=== PATIENT | male | born 1990 | race Caucasian/White ===

== ENCOUNTER → 2019-12-09 14:34 | Outpatient (BNVA) | payer OTHER, SELFPAY | PROVIDERS: Family Provider Speech-Language Pathologist; Referring Provider Family Medicine; Visit Provider Orthopaedic Surgery | DX: M25.561 Pain in right knee (principal) | CPT/HCPCS: 73560; 73565 ==

== ENCOUNTER 2020-11-09 17:30 | Emergency (ER) | payer OTHER, SELFPAY ==
[2020-11-09 17:35] VITALS: BP 128/83; PULSE 74; RESP 18; TEMP 36.7; O2SAT 99
--- NOTE | 2020-11-09 18:12 | CTR_ITS ---
PROCEDURE INFORMATION: Exam: CT Head Without Contrast Exam date and time: 11/09/2020 6:44 PM Age: 30 years old Clinical indication: Dizziness and syncope and collapse TECHNIQUE: Imaging protocol: Computed tomography of the head without contrast. Radiation optimization: All CT scans at this facility use at least one of these dose optimization techniques: automated exposure control; mA and/or kV adjustment per patient size (includes targeted exams where dose is matched to clinical indication); or iterative reconstruction. COMPARISON: No relevant prior studies available. RADIATION DOSE METRICS: Total DLP (mGy-cm): 810.55 FINDINGS: Brain: Normal. No hemorrhage or CT evidence of acute infarction is seen. No mass effect. Cerebral ventricles: No ventriculomegaly. Bones/joints: Unremarkable. No acute fracture. Paranasal sinuses: Visualized sinuses are unremarkable. No fluid levels. Mastoid air cells: Visualized mastoid air cells are well aerated. Soft tissues: Unremarkable. CT/CT head wo con* [id number] IMPRESSION: No acute intracranial abnormality. Radiation Dose CTDIVOL = (mGy): DLP = 810.55 (mGy-cm)
--- NOTE | 2020-11-09 18:12 | ECG_ITS ---
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 Measurements Intervals [place] Rate: 79 P: 71 [place]: 196 QRS: 85 QRSD: 90 T: 56 QT: 348 QTc: 400 Interpretive Statements SINUS RHYTHM WITH SINUS ARRHYTHMIA Compared to ECG 07/10/2018 23:03:52 No significant changes Electronically Signed On 11-09-2020 21:39:42 CASE MANAGEMENT ASSOCIATE by Jamil Ku M.D. [id number]
--- NOTE | 2020-11-09 18:20 | ED_ITS ---
HPI - Syncope General: Chief Complaint: Syncope Stated Complaint: PASSING OUT ON AND OFF Time Seen by Provider: 11/09/20 18:14 Source: patient Mode of arrival: ambulatory Limitations: no limitations History of Present Illness: HPI narrative: 30-year-old male with a history of diabetes. He states that over the last 1 to 2 weeks he has had episodes of feeling lightheaded and passed out. States that he felt lightheaded today after work. He states morning when he woke up to he just felt out of it and did have a syncopal event. He denies any headache or chest pain. Denies any vomiting or diarrhea. Denies any worsening or improving factors. MD complaint: loss of consciousness Associated symptoms: Deny abdominal pain, fever(s), headache(s) or nausea Review of Systems Const: Denies: fever(s), chills, body aches or change in appetite Eyes: Denies: blurry vision or eye discomfort ENMT: Denies: throat pain or dental pain Card: Reports: syncope Resp: Denies: dyspnea GI: Denies: abdominal pain, nausea, vomiting or diarrhea : Denies: dysuria Musc: Denies: neck pain or back pain Skin/Breast: Denies: rash Neuro: Denies: headache(s) Psych: Denies: depression Daniel/Lymph: Denies: easy bruising All/Imm: Denies: urticaria PFSH ED PFSH: Family History Father Heart attack x2 Social History Smoking and tobacco status: former smoker Alcohol intake: never Physical Exam Const: COMMON NORMALS: no acute distress, patient oriented x3 and healthy appearing HENMT: COMMON NORMALS: normocephalic and atraumatic HEAD & SCALP: normocephalic and atraumatic Eye: COMMON NORMALS: Equal, round and reactive pupils present and EOMs intact bilaterally PUPIL: Yes Equal, round and reactive pupils present Neck/C-Spine: COMMON NORMALS: full ROM and supple Chest: COMMONS NORMALS: normal inspection of the chest and normal palpation of entire chest wall Resp: COMMON NORMALS: normal respiratory effort, No retractions, No use of accessory muscles and clear to auscultation bilaterally AUSCULTATION: clear to auscultation bilaterally Cardio: COMMON NORMALS: regular rate, regular rhythm and No murmurs present (Cardio) RATE: regular rate RHYTHM: regular rhythm GI: COMMON NORMALS: Normal to inspection, nondistended, normoactive bowel sounds present, Soft to palpation, non-tender and no masses PALPATION: Yes Soft to palpation Extremity: COMMON NORMALS: normal to inspection and full ROM Neuro: COMMON NORMALS: patient oriented x3, moves all extremities and no focal motor deficits Psych: COMMON NORMALS: mental status grossly normal, Normal thought process present and cooperative THOUGHT PROCESS: Normal thought process present Skin: COMMON NORMALS: no rashes or lesions noted and no wounds GENERAL SKIN EXAM: no rashes or lesions noted Course Vital Signs: Vital signs: Vital Signs Temperature 98.1 F 11/09/20 17:35 Pulse Rate 74 11/09/20 17:35 Respiratory Rate 18 11/09/20 17:35 Blood Pressure 128/83 11/09/20 17:35 Pulse Oximetry 96 11/09/20 18:42 MDM - Syncope MDM Narrative: Medical decision making narrative: Patient presents here with syncope has been going on for weeks. His blood count electrolytes all EKG are all normal here. His head CT is normal as well. He has no signs of cardiac cause or pulmonary embolism. He is well-appearing here and his vital signs are normal. He is stable for discharge and is to follow-up with his PCP in 2 weeks to schedule and return if worsening. He understands agrees to plan. Lab Data: Labs: Lab Results 11/09/20 11/09/20 11/09/20 Range/Units 18:00 18:00 18:35 WBC 11.0 H (4.0-10.0) 10^3/ uL RBC 4.75 (4.1-5.3) 10^6/u L Hgb 14.9 (11.7-16.6) g/dL Hct 44.4 (42.0-52.0) % MCV 93.5 (80-94) fL MCH 31.4 (28.0-34.0) pg MCHC 33.6 (30.0-36.0) g/dL RDW 11.8 L (12.1-15.1) % Plt Count 237 (130-400) 10^3/c mm MPV 11.3 H (7.4-10.4) fL Neut % (Auto) 66.6 % Lymph % (Auto) 22.8 % [place] % (Auto) 8.0 % Eos % (Auto) 1.2 % Baso % (Auto) 1.1 % Neut # (Auto) 7.32 (1.8-7.7) 10^3/u L Lymph # (Auto) 2.5 (0.8-4.8) 10^3/u L [place] # (Auto) 0.9 (0.2-0.9) 10^3/u L Eos # (Auto) 0.1 (0.0-0.8) 10^3/u L Baso # (Auto) 0.1 (0.0-0.1) 10^3/u L Nucleated RBC % (a uto) 0 % Nucleated RBCs # 0.0 /100WBC Specimen Type Arterial ABG pH 7.41 (7.35-7.45) ABG pCO2 43.7 (35-45) mmHg ABG pO2 84.4 (80.0-100.0) mmH g ABG HCO3 27.7 H (22-26) mmol/L ABG O2 Saturation 97.7 ABG Base Excess 2.5 H (-2.0-2.0) mmol/ L Charles Test Pos A-a O2 Gradient 1.5 L (5-10) mmHg Hematocrit 47.3 (42-52) % Hgb O2 Saturation 96.8 (95-100) % Carboxyhemoglobin 0.6 (0.4-20.1) %THgb Methemoglobin 0.4 (0.4-1.5) % Total Hemoglobin 15.4 (14-18) g/dL Ionized Calcium 1.3 (1.1-1.4) mmol/L Collection Administrator ID Anonymous Sodium 138 140.0 (136-145) mmol/L Potassium 3.9 4.0 (3.5-5.1) mmol/L Chloride 99 (98-107) mmol/L Carbon Dioxide 28 (22-29) mmol/L Anion Gap 14.9 (5-19) BUN 19 (6-20) mg/dL Creatinine 0.8 (0.7-1.2) mg/dL GFR Calculation 112.0 (90-130) mL/min Glucose 99 94.0 (65-115) mg/dL Calculated Osmolal ity 288 (285-295) mOsm/k g Calcium 10.2 (8.5-10.5) mg/dL Total Bilirubin 0.7 (0.15-1.2) mg/dL AST 14 (0-40) U/L ALT 15 (0-41) U/L Alkaline Phosphata se 70 (40-130) IU/L Total Protein 7.5 (6.6-8.7) g/dL Albumin 4.6 (3.5-5.2) g/dL Globulin 2.9 (1.3-4.6) g/dL Imaging Data^: CT Chest: Attestation: I personally reviewed and interpreted this imaging study as follows: Radiologist's impression: [employer] [address] [address] [address] Scan Report Signed Patient: Rc Blair Unit #: [id number] : 1990 Acc t#:[id number] Age/Sex: 30 / M ADM Date: 11/09/20 Loc: ER Room/Bed: Attending Dr: Ordering Provider/Ordering MD: Desiree Kent MD Date of Service: 11/09/20 Procedure(s): CT head wo con* [id number] Accession Number(s): [id number] Report Number: [id number] PROCEDURE INFORMATION: Exam: CT Head Without Contrast Exam date and time: 11/09/2020 6:44 PM Age: 30 years old Clinical indication: Dizziness and syncope and collapse TECHNIQUE: Imaging protocol: Computed tomography of the head without contrast. Radiation optimization: All CT scans at this facility use at least one of these dose optimization techniques: automated exposure control; mA and/or kV adjustment per patient size (includes targeted exams where dose is matched to clinical indication); or iterative reconstruction. COMPARISON: No relevant prior studies available. RADIATION DOSE METRICS: Total DLP (mGy-cm): 810.55 FINDINGS: Brain: Normal. No hemorrhage or CT evidence of acute infarction is seen. No mass effect. Cerebral ventricles: No ventriculomegaly. Bones/joints: Unremarkable. No acute fracture. Paranasal sinuses: Visualized sinuses are unremarkable. No fluid levels. Mastoid air cells: Visualized mastoid air cells are well aerated. Soft tissues: Unremarkable. CT/CT head wo con* [id number] IMPRESSION: No acute intracranial abnormality. EKG Data^: EKG 1: Attestation: I personally reviewed and interpreted this EKG as follows: EKG interpretation date: 11/09/20 EKG interpretation time: 19:09 Interpretation: nsr hr [address] or T wave abnormalities QRS 90 QTC 383 Discharge Plan Discharge Patient Disposition: Home Clinical Impression: Syncope Qualifiers: Syncope type: unspecified Qualified Code(s): R55 - Syncope and collapse Condition: Stable Prescriptions: No Action metformin 500 mg tablet 500 mg PO BID RF: 0 pravastatin 10 mg tablet 10 mg PO BEDTIME RF: 0 glipizide 10 mg tablet 10 mg PO BID RF: 0 Tylenol Arthritis Pain 650 mg Tablet Extended Release 2,600 mg PO TID PRN (Reason: Pain) RF: 0 Discharge Orders: Discharge ED (Routine); Ordered 11/09/20 Ordered By: Desiree Kent Discharge Diet: Advance as tolerated Discharge Activity: Resume usual activity Patient Instructions: Syncope (ED) Coding Level of Care Code ED Security Nurse for Chg Fwd Exam Comprehensive
--- NOTE | 2020-11-09 18:36 | PC.PHAR ---
pt states he takes the medications entered-[facility] to [facility] list to verify
[2020-11-09 18:42] VITALS: O2SAT 96
[2020-11-09 18:49] LABS: ABG PCO2 43.7 mmHg (35-45); ABG PH Result 7.41 (7.35-7.45); Alveolar-Arterial Oxygen Gradi 1.5 mmHg (5-10); Arterial Blood Gas Hematocrit 47.3 % (42-52); Base Excess ABG 2.5 mmol/L (-2.0-2.0); Blood Gas Allen Test Pos; Blood Gas Sample Type Arterial; Carboxyhemoglobin 0.6 %THgb (0.4-20.1); HCO3 ABG 27.7 mmol/L (22-26); HGB O2 Sat 96.8 % (95-100); Ionized Calcium Level - ABG 1.3 mmol/L (1.1-1.4); Methemoglobin 0.4 % (0.4-1.5); Oxygen Saturation ABG 97.7; PO2 ABG 84.4 mmHg (80.0-100.0); Total Hemoglobin 15.4 g/dL (14-18)
[2020-11-09] MEDS: sodium chloride 0.9% 1,000 ML 999 ML IV (19:09)
[2020-11-09 19:17] LABS: Basophils # 0.1 10^3/uL (0.0-0.1); Basophils % 1.1 %; Eosinophils # 0.1 10^3/uL (0.0-0.8); Eosinophils % 1.2 %; Hematocrit 44.4 % (42.0-52.0); Hemoglobin 14.9 g/dL (11.7-16.6); Lymphocytes # 2.5 10^3/uL (0.8-4.8); Lymphocytes % 22.8 %; Mean Corpuscular HGB Conc 33.6 g/dL (30.0-36.0); Mean Corpuscular Hemoglobin 31.4 pg (28.0-34.0); Mean Corpuscular Volume 93.5 fL (80-94); Mean Platelet Volume 11.3 fL (7.4-10.4); Monocytes # 0.9 10^3/uL (0.2-0.9); Neutrophils # 7.32 10^3/uL (1.8-7.7); Neutrophils % 66.6 %; Nucleated Red Blood Cells % 0 %; Platelet Count 237 10^3/cmm (130-400); Red Blood Count 4.75 10^6/uL (4.1-5.3); Red Cell Distribution Width 11.8 % (12.1-15.1)
[2020-11-09 19:38] LABS: Alanine Aminotransferase 15 U/L (0-41); Albumin Level 4.6 g/dL (3.5-5.2); Alkaline Phosphatase 70 IU/L (40-130); Anion Gap 14.9 (5-19); Aspartate Amino Transferase 14 U/L (0-40); Blood Urea Nitrogen 19 mg/dL (6-20); Calcium 10.2 mg/dL (8.5-10.5); Carbon Dioxide 28 mmol/L (22-29); Chloride 99 mmol/L (98-107); Globulin 2.9 g/dL (1.3-4.6); Glucose 99 mg/dL (65-115); Osmolality Calculated 288 mOsm/kg (285-295); Potassium 3.9 mmol/L (3.5-5.1); Sodium 138 mmol/L (136-145); Total Bilirubin 0.7 mg/dL (0.15-1.2); Total Protein 7.5 g/dL (6.6-8.7)
[2020-11-09 20:21] VITALS: BP 134/87; PULSE 87; RESP 16; O2SAT 99
== END 2020-11-09 20:23 | disposition home or self-care (01) ==
PROVIDERS: Emergency Provider Emergency Medicine
DX: R55 Syncope and collapse (principal); Z79.84 Long term (current) use of oral hypoglycemic drugs; Z87.891 Personal history of nicotine dependence
CPT/HCPCS: 12345; 36600; 70450; 80051; 80053; 82330; 82805; 83605; 85025; 93005; 96360; 99283; J7030

== ENCOUNTER 2022-06-04 16:55 | Emergency (ER) | payer OTHER, BC, SELFPAY ==
[2022-06-04 16:59] VITALS: BP 128/76; PULSE 72; RESP 16; TEMP 36.2; O2SAT 97; BMI 213.9
--- NOTE | 2022-06-04 17:12 | XRR_ITS ---
PROCEDURE INFORMATION: Exam: XR Right Hand Exam date and time: 06/04/2022 5:17 PM Age: 31 years old Clinical indication: Injury or trauma; Other: Smashed by heavy object; Blunt trauma (contusions or hematomas); Finger; Right; Thumb TECHNIQUE: Imaging protocol: Radiologic exam of the Right hand. Views: 3 or more views. COMPARISON: No relevant prior studies available. FINDINGS: Bones/joints: No fracture is identified. Soft tissues: There is some irregularity of the soft tissues of the tip of the thumb consistent with soft tissue injury and laceration. XR/XR hand RT min 3V* [id number] IMPRESSION: Soft tissue injury. No fracture is identified
--- NOTE | 2022-06-04 17:17 | W.ED.WOUNDLC ---
HPI - Wound/Laceration General: Chief Complaint: Wound/Laceration Stated Complaint: Right thumb injury Time Seen by Provider: 06/04/22 17:12 History of Present Illness: 31-year-old male comes in today with injury to the right thumb. Injury occurred about 7:00 this morning while he was at work. Patient put some glue on it to get it to stop bleeding and has come in now for further evaluation and treatment. Normal tendon movement is noted. Patient reports his tetanus is up-to-date. Patient appears well. Patient appears in mild pain. Review of Systems General: Reports: 10 or more systems reviewed and unremarkable except in HPI and below Musc: Reports: extremity pain PFSH ED PFSH: Family History Father Heart attack x2 Social History Smoking and tobacco status: former smoker Alcohol intake: never Physical Exam Const: COMMON NORMALS: alert HENMT: COMMON NORMALS: normocephalic HEAD & SCALP: normocephalic Resp: COMMON NORMALS: normal respiratory effort Cardio: COMMON NORMALS: regular rate RATE: regular rate Extremity: RIGHT UPPER EXTREMITY: Yes hand & digits (Soft tissue avulsion distal right thumb, normal tendon function) Right hand and digits: Yes inspection, Yes palpation, Yes ROM exam, Yes neurovascular exam and Yes tendon exam Neuro: SENSORIUM/ORIENTATION: Yes alert Skin: TRAUMA: other (Soft tissue avulsion distal right thumb) Course Vital Signs: Vital signs: Vital Signs Temperature 97.1 F L 06/04/22 16:59 Pulse Rate 72 06/04/22 16:59 Respiratory Rate 16 06/04/22 16:59 Blood Pressure 128/76 06/04/22 16:59 Pulse Oximetry 97 06/04/22 16:59 Oxygen Delivery Me thod 06/04/22 16:59 MDM - Wound/Laceration Medical Decision Making Patient comes in for injury to the right thumb. On exam there is some soft tissue injury at the distal part of the right thumb with some exposed subcutaneous fat. Subcutaneous fat has been covered and adhesive. Patient has good range of motion of the thumb. And normal cap refill. Differential diagnosis includes but not limited to fracture, laceration/avulsion, need for prophylaxis tetanus. Patient's tetanus shot was up-to-date. X-ray noted no fracture of the bone. We will go ahead and cover patient with cephalexin 1 tablet twice a day for 7 days for prophylaxis therapy. Wound was cleaned and covered with gauze and antibiotic ointment. Patient was recommended to follow-up with primary care in 2 to 3 days for recheck. Patient was also recommended return to the ER for high fever, increased redness or swelling, streaking up the arm. Patient reported understanding of care plan and need for follow-up. Discharge Plan Discharge Patient Disposition: Home Clinical Impression: Crushed finger, distal Qualifiers: Encounter type: initial encounter Qualified Code(s): S67.10XA - Crushing injury of unspecified finger(s), initial encounter Condition: Stable Prescriptions: New cephalexin 500 mg capsule 500 mg PO BID 7 Days Qty: 14 0RF No Action metformin 500 mg tablet 500 mg PO BID pravastatin 10 mg tablet 10 mg PO BEDTIME glipizide 10 mg tablet 10 mg PO BID Tylenol Arthritis Pain 650 mg Tablet Extended Release 2,600 mg PO TID PRN (Reason: Pain) Discharge Orders: Discharge ED (Routine); Ordered 06/04/22 Ordered By: Go Archer Discharge Diet: Usual diet Discharge Activity: Increase activity as tolerated Patient Instructions: Wound Care (General) Activity Restrictions/Additional Instructions: Keep wound clean and dry as much as possible. Keep the wound protected during work with padded dressing and gloves. Take antibiotic as directed for the next 7 days. Follow-up with primary care in 3 to 5 days for recheck. Return to ER for new concerns such as fever greater than 100.4, increasing redness and swelling of the finger with streaking up the arm, or uncontrolled pain. Coding Level of Care Code ED Clay Press Operator for Alanna Fwd Exam Detailed
[2022-06-04] MEDS: bacitracin ointment Pkt 1 EACH TOPICAL (17:37)
[2022-06-04] MEDS: cephALEXin 500 mg Capsule PO (17:37)
== END 2022-06-04 17:44 | disposition home or self-care (01) ==
PROVIDERS: Emergency Provider Nurse Practitioner Family
DX: S67.01XA Crushing injury of right thumb, initial encounter (principal); Z79.84 Long term (current) use of oral hypoglycemic drugs; Z87.891 Personal history of nicotine dependence; X58.XXXA Exposure to other specified factors, initial encounter
CPT/HCPCS: 73130; 99283

== ENCOUNTER 2024-11-22 15:39 | Emergency (ER) | payer OTHER, SELFPAY ==
[2024-11-22 16:02] VITALS: BP 103/66; PULSE 126; RESP 22; TEMP 39; O2SAT 95; BMI 22.0
--- NOTE | 2024-11-22 16:26 | ED_ITS ---
HPI - URI/Sore Throat General: Chief Complaint: Upper Respiratory Infection Stated Complaint: congestion, high fever Time Seen by Provider: 11/22/24 16:11 Source: patient Mode of arrival: ambulatory Limitations: no limitations History of Present Illness: Patient is a 34-year-old male presents to ED today along with his significant other for evaluation of fevers, chills, body aches, cough, congestion, sore throat, headache. states the whole family had initially been sick with sinus like symptoms but they seemed to recover but states that patient then recently got sick again and it seemed to come out of nowhere. No vomiting/diarrhea. MD elicited complaint: fever, cough, sore throat, rhinorrhea and nasal congestion Onset (ago): day(s) Consistency: constant Severity: moderate Description of mucous: clear Able to tolerate fluids by mouth: Yes Exacerbating factors: nothing Relieving factors: nothing Context: sick contacts Associated symptoms: Reports chills, fever(s), headache(s) and nasal congestion; Deny abdominal pain, chest pain, diarrhea, ear or mastoid pain, sinus pain or vomiting Related Data Home Medications Medication Instructions Recorded Confirmed glipizide 10 mg tablet 10 mg PO BID 12/09/19 07/10/22 metformin 500 mg tablet 500 mg PO BID 12/09/19 07/10/22 Allergies Allergy/AdvReac Type Severity Reaction Status Date / Time No Known Allergies Allergy Verified 11/22/24 16:07 Review of Systems Const: Reports: fever(s), chills, body aches and fatigue Eyes: Denies: change in vision, blurry vision, photophobia, eye discharge, eye redness, floaters or seeing flashes ENMT: Reports: throat pain, odynophagia, nasal discharge and nasal congestion; Denies: ear or mastoid pain or sinus pain Card: Denies: chest pain Resp: Reports: non-productive cough and chest congestion; Denies: dyspnea, wheezing or hemoptysis GI: Denies: abdominal pain, vomiting or diarrhea Musc: Denies: neck pain, back pain, extremity pain, extremity swelling, joint pain or joint swelling Skin/Breast: Denies: rash Neuro: Reports: headache(s); Denies: numbness in extremities, weakness in extremities, sensory changes, difficulty walking, dizziness or confusion PFS ED PFSH: Medical History Type 2 diabetes mellitus Family History Father Heart attack x2 Social History Smoking and tobacco/nicotine status: former use of tobacco/nicotine Alcohol intake: never Substance/Drug Use: never Physical Exam Const: COMMON NORMALS: average body habitus, patient oriented x3, no limitations, healthy appearing, alert and well nourished GENERAL APPEARANCE: cooperative and ill appearing (mild; febrile at 102.2) ORIENTATION/CONSCIOUSNESS: Yes awake, Yes oriented to person, Yes oriented to place and Yes oriented to time HENMT: COMMON NORMALS: normocephalic, atraumatic, hearing grossly normal bilaterally, external ears normal, EAC's normal, TM's normal bilaterally, Normal external nose present, Normal nasal mucous membranes and turbinates present, moist oral mucous membranes and oropharynx normal HEAD & SCALP: normal to inspection, normocephalic and atraumatic FACE & SINUS: normal facial exam and sinuses nontender NOSE: Normal external nose present and Normal nasal mucous membranes and turbinates present EXTERNAL EAR: Yes external ears normal EXTERNAL AUDITORY CANAL: EAC's normal TYMPANIC MEMBRANE: TM's normal bilaterally MOUTH: Normal oral and palatal mucosa present and lip normal THROAT: posterior oropharynx normal, tonsils normal and uvula midline Eye: COMMON NORMALS: Equal, round and reactive pupils present, EOMs intact bilaterally and conjunctivae normal CONJUNCTIVA: Yes conjunctivae normal PUPIL: Yes Equal, round and reactive pupils present Neck/C-Spine: COMMON NORMALS: no lymphadenopathy Resp: COMMON NORMALS: normal respiratory effort and clear to auscultation bilaterally AUSCULTATION: clear to auscultation bilaterally Cardio: COMMON NORMALS: regular rhythm RATE: tachycardic (pt febrile at 102.2) RHYTHM: regular rhythm Extremity: GENERAL: Yes normal exam except as noted Neuro: GUNNER COMA SCALE: document GCS findings Gunner coma scale eye opening: Spontaneous [place] coma scale verbal response: Orientated Gunner coma scale motor response: [place] commands Gunner coma scale total score: 15 COMMON NORMALS: patient oriented x3 SENSORIUM/ORIENTATION: Yes alert, Yes oriented to person, Yes oriented to place and Yes oriented to time Skin: COMMON NORMALS: no rashes or lesions noted GENERAL SKIN EXAM: no rashes or lesions noted Course Vital Signs: Vital signs: Vital Signs Temperature 102.2 F H 11/22/24 16:02 Pulse Rate 119 H 11/22/24 16:28 Respiratory Rate 16 11/22/24 16:28 Blood Pressure 112/69 11/22/24 16:28 Pulse Oximetry 94 11/22/24 16:28 Oxygen Delivery Me thod Room Air 11/22/24 16:28 MDM - URI/Sore Throat Medical Decision Making Patient here with flu like symptoms. He is positive for influenza A. Discussed conservative therapies at home. CXR unremarkable. Differential Diagnosis Likely upper respiratory infection, viral infection, bronchitis, influenza and pharyngitis Medical Records I reviewed the patient's medical records. Lab Data I reviewed the patient's lab results. Laboratory Results Coronavirus (PCR) Negative (Negative) 11/22/24 16:10 Influenza A (PCR) Positive (Negative) 11/22/24 16:10 Influenza Type B (PCR) Negative (Negative) 11/22/24 16:10 RSV (PCR) Negative (Negative) 11/22/24 16:10 XR interpretation done by ED provider, pending radiology final review Discharge Plan Discharge Patient Disposition: Home Clinical Impression: Influenza A Condition: Stable Prescriptions: No Action metformin 500 mg tablet 500 mg PO BID glipizide 10 mg tablet 10 mg PO BID Discharge Orders: Discharge ED (Routine); Ordered 11/22/24 Ordered By: Naomi Kebede Patient Instructions: Influenza (DC) Coding Level of Care Code ED [place] Controller for Alanna Turk
[2024-11-22 16:28] VITALS: BP 112/69; PULSE 119; RESP 16; O2SAT 94
--- NOTE | 2024-11-22 16:32 | XRR_ITS ---
PROCEDURE INFORMATION: Exam: XR Chest Exam date and time: 11/22/2024 4:42 PM Age: 34 years old Clinical indication: Cough and fever; Patient HX: Cough; Congestion; Fever TECHNIQUE: Imaging protocol: Radiologic exam of the chest. Views: 1 view. COMPARISON: No relevant prior studies available. FINDINGS: Lungs: Unremarkable. No consolidation. Pleural spaces: Unremarkable. No pleural effusion. No pneumothorax. Heart/Mediastinum: Unremarkable. No cardiomegaly. Bones/joints: Unremarkable. XR/XR chest 1V portable [id number] IMPRESSION: No acute findings.
[2024-11-22] MEDS: ibuprofen 800 mg tablet PO (16:38)
[2024-11-22] MEDS: acetaminophen 500 mg Tablet 1000 MG PO (16:38)
[2024-11-22 16:57] LABS: Covid PCR NEGATIVE (Negative); Influenza A POSITIVE (Negative); Influenza B NEGATIVE (Negative); Respiratory Syncytial Virus Ce NEGATIVE (Negative)
[2024-11-22 17:33] VITALS: BP 108/61; PULSE 116; RESP 16; O2SAT 93
== END 2024-11-22 17:32 | disposition home or self-care (01) ==
PROVIDERS: Emergency Provider Physician Assistant
DX: J10.1 Influenza due to other identified influenza virus with other respiratory manifestations (principal); Z11.52 Encounter for screening for COVID-19; Z79.84 Long term (current) use of oral hypoglycemic drugs; E11.9 Type 2 diabetes mellitus without complications
CPT/HCPCS: 71045; 87637; 99284

== ENCOUNTER 2024-11-28 13:00 | Emergency (ER) | payer OTHER, SELFPAY ==
[2024-11-28 13:01] VITALS: BP 134/83; PULSE 80; RESP 16; TEMP 36.7; O2SAT 97; BMI 21.7
--- NOTE | 2024-11-28 13:02 | XR_ITS ---
WS: [id number] Exam: XR hand RT min 3V* [id number] Date/Time of Exam: 11/28/2024 1:03 PM Reason For Exam: injury No fracture. The joints are preserved. Normal soft tissues. XR/XR hand RT min 3V* [id number] IMPRESSION: 1. No acute fracture.
--- NOTE | 2024-11-28 13:35 | ED_ITS ---
HPI - Extremity Injury (Upper) General: Chief Complaint: Extremity Injury, Upper Stated Complaint: rt pinkie injury Time Seen by Provider: 11/28/24 13:15 Source: patient Mode of arrival: ambulatory Limitations: no limitations History of Present Illness: Patient is a 34-year-old male who presents to ED today for evaluation of right hand injury that he sustained just prior to arrival after accidentally dropped a 40 pound piece of subflooring onto the right hand. Sustained an abrasion and has noticed some swelling overlying the right fourth and fifth MCP joints. Maintains full range of motion. Tetanus UTD. MD complaint: injury to: right and hand Onset (ago): hour(s) Other injuries: none Handedness: right Place: home Severity: mild Relieving factors: none Exacerbating factors: none Context: direct blow Associated symptoms: Reports no associated symptoms Related Data Home Medications Medication Instructions Recorded Confirmed glipizide 10 mg tablet 10 mg PO BID 12/09/19 07/10/22 metformin 500 mg tablet 500 mg PO BID 12/09/19 07/10/22 Allergies Allergy/AdvReac Type Severity Reaction Status Date / Time No Known Allergies Allergy Verified 11/22/24 16:07 Review of Systems Musc: Reports: extremity pain Skin/Breast: Reports: other (abrasion) Neuro: Denies: numbness in extremities or sensory changes PFSH ED PFSH: Medical History Type 2 diabetes mellitus Family History Father Heart attack x2 Social History Smoking and tobacco/nicotine status: former use of tobacco/nicotine Alcohol intake: never Substance/Drug Use: never Physical Exam Const: COMMON NORMALS: no acute distress, average body habitus, no limitations, healthy appearing, alert and well nourished Extremity: COMMON NORMALS: full ROM and capillary refill normal GENERAL: Yes normal exam except as noted LEFT UPPER EXTREMITY: Yes hand & digits (edema/scant abrasion overlying R dorsal 4-5 MCP joints) Left hand and digits: Yes ROM (normal) and Yes neurovascular exam (normal) Neuro: COMMON NORMALS: moves all extremities, no focal motor deficits and no sensory deficits noted SENSORIUM/ORIENTATION: Yes alert Course Vital Signs: Vital signs: Vital Signs Temperature 98.0 F 11/28/24 13:01 Pulse Rate 80 11/28/24 13:01 Respiratory Rate 16 11/28/24 13:01 Blood Pressure 134/83 11/28/24 13:01 Pulse Oximetry 97 11/28/24 13:01 MDM - Extremity Injury (Upper) Medical Decision Making XR unremarkable. Tetanus UTD. He will be allowed discharge. Infection precautions discussed regarding abrasion. Lab Data Radiology Impressions Hand X-Ray 11/28/24 13:02 IMPRESSION: 1. No acute fracture. All radiology interpretation(s) finalized by discharge Discharge Plan Discharge Patient Disposition: Home Clinical Impression: Contusion of dorsum of right hand Condition: Stable Prescriptions: No Action metformin 500 mg tablet 500 mg PO BID glipizide 10 mg tablet 10 mg PO BID Discharge Orders: Discharge ED (Routine); Ordered 11/28/24 Ordered By: Naomi Kebede Patient Instructions: Contusion Activity Restrictions/Additional Instructions: As we discussed, you may ice and elevate the extremity. Monitor for signs of infection such as redness, swelling, streaking up your hand, increased pain, discharge/drainage. Please seek medical reevaluation if these occur. X-ray was unremarkable for any acute fractures. Coding Level of Care Code ED Risk Management Professional for Alanna Turk
[2024-11-28 13:43] VITALS: BP 120/75; PULSE 80; O2SAT 96
== END 2024-11-28 13:44 | disposition home or self-care (01) ==
PROVIDERS: Emergency Provider Physician Assistant
DX: S60.221A Contusion of right hand, initial encounter (principal); Z79.84 Long term (current) use of oral hypoglycemic drugs; E11.9 Type 2 diabetes mellitus without complications; Z87.891 Personal history of nicotine dependence; X58.XXXA Exposure to other specified factors, initial encounter
CPT/HCPCS: 73130; 99283

== ENCOUNTER 2025-06-03 11:25 | Emergency (ER) | payer OTHER, SELFPAY ==
--- OUTSIDE RECORDS SUMMARY | 2024-06-09 04:00 | XMS_ITS | Encounter Summary ---
Author Name [facility] [place] [facility] [place] [facility] [place] [facility] [place] Address [address] [place] [address] Care Team Providers Care Electronics Manufacturer Name Role Phone AUDREY HOFFMAN Primary Care Provider Unavailabl e Insurance Providers: All historical and current Section Date Range: From patient's date of to the date document was created. This section includes the names of all active insurance providers for the patient. Insurance Provider Type of Coverage Plan Name Start of Policy Coverage End of Policy Coverage Group Number Member ID Insurance Provider's Telephone Number Policy Copeland's Name Patient's Relationship to Policy Copeland TEJAS LIEBERMAN [place] PREFERRED PROVIDER ORGANIZAT ION (PPO) [facility], 2021 [id number] SUNDAY BASS RK PATIENT [place] PREFERRED PROVIDER ORGANIZAT ION (PPO) [facility] 09, 2021 [id number] [phone] SUNDAY BASS RK PATIENT [employer] ([id number])RX PRESCRIPT ION [facility] 09, 2021 [id number] SUNDAY BASS RK PATIENT [employer] MAINTENAN CE ORGANIZAT ION ALLEG IANCE BENEF IT P Oct 29, 2024 [id number] SHARIF BASS PATIENT [employer] MAINTENAN CE ORGANIZAT ION ALLEG IANCE BENEF IT P Oct 29, 2024 [id number] [phone] SHARIF BASS PATIENT CIGNA [facility] MAINLORRAINE CE ORGANIZAT ION TPA ALLEG HEATHER BENE Oct 29, 2024 [id number] SUNDAY BASS RK PATIENT [facility] RX [id number] PRESCRIPT ION 6MEDI [place] Oct 29, 2024 [id number] [phone] SUNDAY BASS RK PATIENT [facility] M[facility] MEDIC A [facility] Oct 29, 2024 [id number] SUNDAY BASS RK PATIENT PRIME THERAPEUTI CS RX PRESCRIPT ION RX PLAN Oct 29, 2022 [id number] SUNDAY BASS RK PATIENT Selected Encounter This section includes the information on record at [place] for the Encounter. Date/Time Encounter Type Encounter Description Reason Provider Source Jun 09, 2024 09:00 AM OFFICE O/P EST MOD 30 MIN PRIMARY CARE/MEDICINE ICD-10-CM E11.9 Type 2 diabetes mellitus without complications VIRIDIANA HOFFMAN Encounter Template Text not used by [facility] Assessments - Encounter Diagnoses This section includes the primary and secondary diagnoses documented for the Encounter. Date/Time Primary/Secondary Diagnosis Diagnosis Name Provider Source Jun 16, 2024 02:54 PM PRIMARY Type 2 diabetes mellitus without complications AUDREY HOFFMANS [place] [facility] Jun 16, 2024 02:54 PM SECONDARY Alcohol dependence with unspecified alcohol-induced disorder AUDREY HOFFMAN [facility] Jun 16, 2024 02:54 PM SECONDARY Allergic rhinitis, unspecified AUDREY HOFFMAN [facility] Jun 16, 2024 02:54 PM SECONDARY Cervicalgia AUDREY HOFFMAN [facility] Jun 16, 2024 02:54 PM SECONDARY Dorsalgia, unspecified ARMANDOAUDREY NYE [facility] Jun 16, 2024 02:54 PM SECONDARY Hyperlipidemia, unspecified ARMANDOAUDREY NYE [facility] Jun 16, 2024 02:54 PM SECONDARY Major depressive disorder, recurrent, moderate ARMANDOAUDREY NYE [facility] Jun 16, 2024 02:54 PM SECONDARY Osteoarthritis of knee, unspecified AUDREY HOFFMAN [facility] Jun 16, 2024 02:54 PM SECONDARY Post-traumatic stress disorder, chronic AUDREY HOFFMAN [facility] Jun 16, 2024 02:54 PM SECONDARY Vitamin D deficiency, unspecified AUDREY HOFFMAN [facility] Plan of Treatment: Future Appointments (+ 6 months) and Future Tests (+/- 45 days) The Plan of Treatment section includes future care activities for the patient from all [place] treatmentfacilities. This section includes future appointments and future orders which are active, pending or scheduled. Future Appointments This section includes appointments that were scheduled to occur 6 months from the date of the Encounter, up to a maximum of 20 appointments. The data comes from all [place] treatment facilities. Appointment Date/Time Appointment Type Appointme nt Facility Name Jul 01, 2024 10:00 AM AMBULATORY - [place]IC[place] [facility] Sep 13, 2024 11:16 AM [facility] [place] [facility] Sep 15, 2024 03:00 PM [facility]ULATORY [facility]IC[facility] Oct 21, 2024 03:00 PM [facility]ULATORY - [facility]ICINE [facility] Nov 14, 2024 02:00 PM [facility]ATORY - MEDICINE [facility] Nov 27, 2024 08:30 AM [facility]ICINE [facility] Nov 27, 2024 09:00 AM [facility]ICINE [facility] Dec 02, 2024 02:00 PM [facility]ICINE [facility] Dec 04, 2024 01:00 PM [facility] Dec 04, 2024 01:01 PM [facility] Lab Results: +/- 30 days of the encounter This section includes the Chemistry and Hematology Lab Results on record with [place] for the patient. Radiology Reports and Pathology Reports are provided separately, in subsequent sections. Lab Results This section contains the Chemistry/Hematology Results that were resulted 30 days before or 30 daysafter the date of the Encounter. Date/Time Source Result Type Result - Unit Interpretation Reference Range Specimen Type Comment Jun 02, 2024 08:03 AM [facility] HGA1C BLOOD Specimen Type: BLOOD No comment entered. Ordering Provider: AUDREY HOFFMAN Report Released Date/Time: Dec 03, 2023 11:14 AM Reporting Lab: [place] [facility] [address] [place] [address] Performing Lab: [place] [facility] [address] [place] [address] HGA1C 7.1 H 4.0-6.0 Jun 02, 2024 08:03 AM [facility] CHOLESTEROL PANEL (PB) PLASMA Specimen Type: P TJ No comment entered. Ordering Provider: AUDREY HOFFMAN Report Released Date/Time: Dec 03, 2023 11:14 AM Reporting Lab: [place] [facility] [address] [place] [address] Performing Lab: [place] [facility] [address] [place] [address] CHOLESTEROL 165 mg/dL 0-200 TRIGLYCERIDE 154 mg/dL H 0-150 CALCULATED LDL 98.2 mg/dL HDL(New) 36.0 mg/dL L >40 HDL % OF TOTAL CHOLESTEROL (PB) 21.8 >25 Jun 02, 2024 08:03 AM [facility] COMPREHENSIVE METABOLIC PANEL PLASMA Specimen Type: PLASMA No comment entered. Ordering Provider: AUDREY HOFFMAN Report Released Date/Time: Dec 03, 2023 11:14 AM Reporting Lab: [place] [facility] [address] [place] [address] Performing Lab: [place] [facility] [address] [place] [address] CREATININE 0.94 mg/dL 0.7-1.3 UREA NITROGEN 17 mg/dL 9-25 GLUCOSE 131 mg/dL H 72-99 SODIUM 138 meq/L 136-145 POTASSIUM 4.3 meq/L 3.5-5 CHLORIDE 104 meq/L 98-107 CARBON DIOXIDE 24 meq/L 22-31 CALCIUM 9.5 mg/dL 8.4-10.4 PROTEIN 7.7 g/dL 6-8.6 ALBUMIN 4.5 g/dL 3.4-5 TOTAL BILIRUBIN 0.5 mg/dL 0.2-1.2 ALKALINE PHOSPHATASE 67 U/L 40-150 AST/SGOT 15 U/L 5-34 ALT/SGPT 23 U/L 8-40 EGFR (CKD-EPI 2020) 108 Vital Signs: All taken on the encounter date This section contains inpatient and outpatient Vital Signs collected on the date of the Encounter. Date/Time Temperature Pulse Blood Pressure Respiratory Rate SP02 Pain Height Weight Body Mass Index Source Jun 09, 2024 08:54 AM 98.0 77 127/84 96 [facility] Jun 09, 2024 08:53 AM 20 0 68.0 148.8 23 [facility] Social History: Smoking Status (Most current) and Tobacco Use (All prior to encounter date) This section includes the most current, and the historical, smoking and tobacco- related health factors from the [place] facility where the Encounter took place. Current Smoking Status This section includes the most current smoking, or tobacco-related health factor, from the [place] facility where the Encounter took place. Date/Time Current Smoking Status Comment Facil ity Jun 09, 2024 09:00 AM VA-TOBACCO FORMER USER [facility] Tobacco Use History This section includes a history of the smoking, or tobacco-related health factors, that were collected on or before the date of the Encounter. The data comes from the [place] facility where the Encounter took place. 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 [facility] Jun 05, 2022 10:30 AM VA-TOBACCO USE MED NO [facility] Jun 05, 2022 10:30 AM VA-TOBACCO USE WI 30 MIN OF WAKE UP [facility] Jun 05, 2022 10:30 AM VA-TOBACCO USER EVERY DAY [facility] May 19, 2021 08:30 AM VA-TOBACCO NEVER USED [facility] Jun 02, 2019 09:31 AM VA-TOBACCO DOESNT USE WI 30 MIN WAKEUP [facility] Jun 02, 2019 09:31 AM VA-TOBACCO USE 5 TO 15 YEARS [facility] Jun 02, 2019 09:31 AM VA-TOBACCO USE ADVICE [facility] Jun 02, 2019 09:31 AM VA-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 [facility] Jun 02, 2019 09:31 AM VA-TOBACCO USE MED NO [facility] Jun 02, 2019 09:31 AM VA-TOBACCO USER EVERY DAY [facility] Jul 15, 2018 08:29 AM CURRENT TOBACCO USER [facility] Jul 15, 2018 08:29 AM CURRENT TOBACCO US ER (NOT READY TO QUIT) [place] [place] Jul 15, 2018 08:29 AM TOBACCO CESSATION REFERRAL [facility] DEST[facility] Jul 15, 2018 08:29 AM TOBACCO MEDS OFFERED BUT DECLINE D [facility] Jul 15, 2018 08:29 AM TOBACCO USER OFFERED MEDS [facility] Dec 05, 2017 01:07 PM CURRENT TOBACCO USER [facility] Dec 05, 2017 01:07 PM CURRENT TOBACCO US ER (NOT READY TO QUIT) [facility] Dec 05, 2017 01:07 PM TOBACCO CESSATION REFERRAL DE[facility]I DESTIN [facility] Dec 05, 2017 01:07 PM TOBACCO MEDS OFFERED BUT DECLINE D [facility] Dec 05, 2017 01:07 PM TOBACCO USER OFFERED MEDS [facility] Advance Directives: All historical and current Section Date Range: From patient's date of to the date document was created. This section includes ALL of a patient's completed or amended [place] Advance and Rescinded Directives. The entries below indicate that a directive exists for the patient, but an actual copy is not included with this document. The data comes from all [place] facilities. Date Advance Directives Provider Source Aug 06, 2015 ADVANCE DIRECTIVE DISCUSSION FLORENCIO EVANS [facility] N [facility] Encounter Notes: All associated encounter notes This section contains the clinical notes associated to the Encounter. Date/Time Encounter Note(s) Provider Source Apr 06, 2025 01:08 PM PHYSICIAN LETTERS: LOCAL TITLE: TEST RESULT GENERAL LETTER STL STANDARD TITLE: PHYSICIAN LETTERS DATE OF NOTE: APR 06, 2025@13:08 ENTRY DATE: APR 06, 2025@13:08:49 AUTHOR: AUDREY HOFFMAN COSIGNER: URGENCY: STATUS: COMPLETED [facility] [address] [place] [address] Apr 06, 2025 Mr. Sahrif Bass [address] [place], [place] [address] Dear Mr. Bass: This letter is to inform you regarding your recent laboratory tests. The ordering provider has reviewed these reports and will take necessary action, if needed. Date Lab Test Result H/L Unit Range 03/24/2025 ASMA negative TITER - 20.1 03/24/2025 ALKALINE PHOSPHAT 91 U/L 40 - 150 03/24/2025 ALT (SGPT) 112 H U/L 8 - 40 03/24/2025 AST (SGOT) 75 H U/L 5 - 34 Your right upper quadrant abdominal ultrasound was normal as well at this time no need for any further workup will continue to follow your liver enzymes. Certainly need to avoid any and all alcohol use. If you are seeing any outside provider(s), please share this information with him/her. If you have any questions, please feel free to contact our clinic. Sincerely, Audrey Hoffman MD [facility] QUETASHARIF RAMOS EDAUDREY MONSIVAIS [facility] Dec 01, 2024 12:25 PM GENERAL MEDICINE N OTE: LOCAL TITLE: General Note PB STANDARD TITLE: GENERAL MEDICINE NOTE DATE OF NOTE: DEC 01, 2024@12:25 ENTRY DATE: DEC 01, 2024@12:25:36 AUTHOR: AUDREY HOFFMAN EXP COSIGNER: URGENCY: STATUS: COMPLETED Call [phone] patient has been obtain lab but I do not have an appointment? /jonathan/ Audrey Hoffman MD [facility] Signed: 12/01/2024 12:25 Receipt Acknowledged By: 12/03/2024 09:38 /jonathan/ AUDREY REED [facility] Jun 09, 2024 09:06 AM PRIMARY CARE PROGR ESS NOTE: LOCAL TITLE: PRIMARY CARE CLINIC PROGRESS NOTE PB STANDARD TITLE: PRIMARY CARE PROGRESS NOTE DATE OF NOTE: JUN 09, 2024@09:06 ENTRY DATE: JUN 09, 2024@09:06:37 AUTHOR: AUDREY HOFFMAN EXP COSIGNER: URGENCY: STATUS: COMPLETED SUBJECTIVE: SHARIF BASS is a 33 years old MALE. HPI: Presents to the clinic today for a periodic health maintenance visit. Last seen He reports he has started to have trouble seeing his computer screen at work as he got a promotion and is using a computer much more frequently. In addition he has a little lump under his right upper arm he wanted checked out. Non-VA Primary Care Provider None Specialty Services 1. Hand orthopedist, Dr. Ledbetter 2. orthopedist, Dr. Marino 3. 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 OVERSEAS STATIONS/DEPLOYMENTS: none MAJOR ACCIDENTS OR INJURIES WHILE ON ACTIVE DUTY: SURGICAL HX: Right knee arthroscopy- meniscus scaphoid fracture appendectomy hand contractures Problem List 1) Type 2 diabetes mellitus 2) Osteoarthritis of knee 3) Chronic post-traumatic stress disorder 4) HLD - Hyperlipidemia 5) Chronic depression 6) Alcohol dependence 7) Chronic neck pain 8) Chronic back pain 9) Vitamin D Deficiency ([facility] [id number]) 10) Allergic Rhinitis ([facility] [id number]) Active Outpatient Medications (including Supplies): Active Outpatient Medications Status 1) INSULIN SYRINGE 0.5ML 31G 8MM USE SYRINGE UNDER THE ACTIVE SKIN ONCE A DAY FOR USE WITH INSULIN TO CONTROL BLOOD SUGAR. 2) INSULIN,GLARGINE-YFGN 100UNIT/ML INJ INJECT 10 UNITS ACTIVE UNDER THE SKIN EVERY EVENING TO CONTROL BLOOD SUGAR. ADMINISTER AT SAME TIME EACH DAY DIRECTED. DISCARD ANY VIAL 28 DAYS AFTER OPENING. 3) METFORMIN HCL 1000MG TAB TAKE ONE TABLET BY MOUTH ACTIVE TWICE A DAY WITH MEALS FOR BLOOD SUGAR CONTROL. TAKE WITH FOOD. AVOID ALCOHOL. DISCONTINUE BEFORE GETTING XRAY DYE. Allergies: Patient has answered NKA Review of Systems: as per HPI and Systemic: Denies fatigue, fever, chills, or weight loss CV: Denies chest pain, palpitations Pulmonary: Denies hemoptysis, Shortness of breath, dyspnea on exertion GI: Denies constipation, bloody stools, diarrhea, indigestion, or n/v Ext: Denies any swelling Neuro: Denies slurred speech or dizziness Skin: Denies abnormal lesions; denies any new rashes PSYCH: Denies SI/HI; denies nightmares OBJECTIVE: Vital Signs Temperature: 98.0 F [36.7 C] (06/09/2024 08:54) Respiratory Rate: 20 (06/09/2024 08:53) Pulse Rate: 77 (06/09/2024 08:54) Blood Pressure: 127/84 (06/09/2024 08:54) HT: 68.0 in [172.7 cm] (06/09/2024 08:53) WT: 148.8 lb [67.49 kg] (06/09/2024 08:53) BMI: 22.7 96% (06/09/2024 08:54) Physical Exam General: NAD noted, A&Ox3, pleasant, appears stated age HEENT: NCAT, TM's clear, nares and oropharynx clear Neck: Supple with normal active ROM, without any lymphadenopathy Heart: RRR, no murmur, clicks, or rub Resp: Lungs CTA bilaterally, respirations even and unlabored Ext: No clubbing, cyanosis, edema or obvious deformity; his right mid- tricep area has a 2 cm freely mobile nodule probable lipoma, noninflamed nontender Skin: Warm, pink, and dry, no rashes Neuro: Grossly intact Psych: Affect normal, answers questions appropriately throughout visit A/P: ASSESSMENT and PLAN Health Maintenance: Labs reviewed with patient and printout given to patient. Discussed preventative health to include diet and exercise as well as immunizations. Type 2 diabetes mellitus- controlled on glimepiride, metformin and Lantus Post-traumatic stress disorder/Depression- doing well staying active remodeling home Hyperlipidemia- on pravastatin, controlled Alcohol dependence- sober Chronic neck/back/knee pain- stable, worse in the winter, occ ibuprofen and chiropractor prn Insomnia- reports sleeping well Vitamin D Deficiency- on supplement Allergic rhinitis- will get him back on his Flonase and well as some Zyrtec, Mucinex prn. Vision issues with increased computer use-will set him up to see optometry for further evaluation and treatment Stable. Discussed medications with patient; med rec completed. Continue current regimen as prescribed by PCP and specialists. RTC as needed if developing any new or worsening symptoms. Please notify PACT with medication changes or for orders coordination as needed if seen by a specialist in the future. Will f/u with patient once updated labs / imaging / testing received; otherwise f/u as listed below. Follow-up: 6 months with fasting labs prior to appointment and/or as needed. Discussed with patient that in the event of community imaging / testing being ordered in the future, once the imaging / testing has been completed, please notify PACT of completion at outside facility if not called with results within 1 week by a VA PACT member; this is due to intermittent lapses in notification of imaging completion within CPRS. All questions answered; agrees to plan of care. Follow up as listed above, annually, and as needed. Keep all appointments. Medications Reconciled. See AVS given to . Time spent 30 minutes. /jonathan/ Audrey Hoffman MD [facility] Signed: 06/09/2024 09:38 AUDREY HOFFMAN [facility] Jun 09, 2024 08:45 AM PRIMARY CARE NURSI MIGUELINA NOTE: LOCAL TITLE: PRIMARY CARE NURSING PROGRESS NOTE (TEXT) NURSING P STANDARD TITLE: PRIMARY CARE NURSING NOTE DATE OF NOTE: JUN 09, 2024@08:45 ENTRY DATE: JUN 09, 2024@08:45:52 AUTHOR: CLARA ORDONEZ COSIGNER: URGENCY: STATUS: COMPLETED Established Patient SHARIF BASS IS A 33 YEAR OLD MALE BEING SEEN IN CLINIC JUN 09, 2024. == == REASON FOR VISIT: here for 6 month follow up Are you receiving care any where other than the VA? No HEALTH AND SURGICAL HISTORY: Does patient report using home oxygen? No CURRENT ACTIVE MEDICATIONS FOR REVIEW: Allergies/ADRs (Tool #5) FAC[facility] NO KNOWN ALLERGIES [facility] No Known Allergies Med. Reconciliation (Tool #1) INCLUDED IN THIS LIST: Alphabetical list of active outpatient prescriptions dispensed from this [place] (local) and dispensed from another [place] or [facility] facility (remote) as well as inpatient orders (local pending and active), local clinic medications, locally documented non-VA medications, and local prescriptions that have or been discontinued in the past 90 days. Non-VA Meds Last Documented On: Data not found NOTE The display of VA prescriptions dispensed from another [place] or [facility] facility (remote) is limited to active outpatient prescription entries matched to National Drug File at the originating site and may not include some items such as investigational drugs, compounds, etc. NOT INCLUDED IN THIS LIST: Medications self-entered by the patient into personal health records (i.e. [facility]) are NOT included in this list. Non-VA medications documented outside this [place], remote inpatient orders (regardless of status) and remote clinic medications are NOT included in this list. The patient and provider must always discuss medications the patient is taking, regardless of where the medication was dispensed or obtained. OUTPT CETIRIZINE HCL 10MG TAB (Status = ) TAKE ONE TABLET BY MOUTH ONCE A DAY FOR ALLERGY SYMPTOMS Rx# [id number] Last Released: 03/12/24 Qty/Days Supply: Rx Expiration Date: 06/05/24 Refills Remainin Indication: FOR ALLERGY SYMPTOMS OUTPT FLUTICASONE PROP 50MCG 120D NASAL INHL (Status = ) INSTILL 1 SPRAY IN NOSTRIL(S) ONCE A DAY FOR ALLERGIES (MUST BE USED DIRECTED FOR MINIMUM OF 21 DAYS TO PROVIDE ADEQUATE BENEFITS) Rx# [id number] Last Released: 06/07/23 Qty/ Supply: Rx Expiration Date: 06/05/24 Refills Remainin OUTPT GLIMEPIRIDE 4MG TAB (Status = ) TAKE TWO TABLETS BY MOUTH EVERY MORNING FOR DIABETES TAKE WITH BREAKFAST OR FIRST FOOD. Rx# [id number] Last Released: 03/14/24 Qty Supply: 180 Rx Expiration Date: 06/05/24 Refills Remainin Indication: FOR DIABETES OUTPT GUAIFENESIN 400MG TAB (Status = ) TAKE ONE TABLET BY MOUTH EVERY 4 HOURS NEEDED FOR MUCUS THINNING TAKE WITH 8 OUNCE GLASS OF WATER. Rx# [id number] Last Released: 06/07/23 Qty/ Supply: 270/45 Rx Expiration Date: 06/05/24 Refills Remainin Indication: FOR MUCUS THINNING OUTPT INSULIN,GLARGINE-YFGN 100UNIT/ML INJ (Status = Active) INJECT 10 UNITS UNDER THE SKIN EVERY EVENING TO CONTROL BLOOD SUGAR. ADMINISTER AT SAME TIME EACH DAY DIRECTED. DISCARD ANY VIAL 28 DAYS AFTER OPENING. Rx# [id number] Last Released: 03/13/24 Qty Supply: Rx Expiration Date: 09/14/24 Refills Remainin OUTPT METFORMIN HCL 1000MG TAB (Status = Active) TAKE ONE TABLET BY MOUTH TWICE A DAY WITH MEALS FOR BLOOD SUGAR CONTROL. TAKE WITH FOOD. AVOID ALCOHOL. DISCONTINUE BEFORE GETTING XRAY DYE. Rx# [id number] Last Released: 03/14/24 Qty/Days Supply: 180 Rx Expiration Date: 06/27/24 Refills Remainin SUPPLIES OUTPT INSULIN SYRINGE 0.5ML 31G 8MM (Status = Active) USE SYRINGE UNDER THE SKIN ONCE A DAY FOR USE WITH INSULIN TO CONTROL BLOOD SUGAR. Rx# [id number] Last Released: 12/07/23 Qty/Days Supply: / Rx Expiration Date: 09/14/24 Refills Remainin PHARMACY TERMS AND POSSIBLE PATIENT ACTIONS INPT = MT inpatient order IV = MT intravenous medication OUTPT = MT outpatient prescription PHARMACY POSSIBLE PATIENT TERMS EXPLANATION ACTIONS -------- ----- ACTIVE A prescription that can be If you have refills, filled at the local [place] pharmacy. you may request a refill of this prescription from your VA pharmacy. CLINIC A medication you received during If you have questions a visit to a [place] clinic or about this medication emergency department. contact your [place] healthcare team. DISCONTINUED A prescription your provider has Contact your VA stopped. It is no longer healthcare team if you available to be sent to you or need more of this picked up at the [place] pharmacy medication. window. A prescription which is too old Contact your VA to fill. This does not refer to healthcare team if you the expiration date of the need more of this medication in the container. medication. NON-VA A medication that came from If this medication someplace other than a VA information is pharmacy. This may be a incorrect or out of prescription from either the VA date, please tell your or non VA providers that was VA healthcare team. filled outside the VA. Or, it may be an ngyb-cje-dlsdwzz (OTC), herbal, dietary supplements or sample medication. ON HOLD An active prescription that will Contact your VA not be filled until pharmacy pharmacy when you need resolves the issue. more of this medication. PARKED An active prescription that will Contact your VA not be filled until the patient pharmacy when you need requests it. this medication. PENDING This prescription order has been If you have been sent to the pharmacy for review instructed to start and is not ready yet. this medication now, contact [facility]. SUSPENDED An active prescription that is Contact your [place] not scheduled to be filled yet. pharmacy if you need You should receive it before this medication now. you run out. Patient reports taking medications as ordered. IS PATIENT TAKING ANY OVER THE COUNTER MEDICATIONS, SUCH VITAMINS OR HERBAL SUPPLEMENTS, INCLUDING ANY MEDICATIONS PRESCRIBED BY ANOTHER PHYSICIAN? No ALLERGIES/ADVERSE REACTIONS: Patient has answered NKA Does patient have any new allergies to report since last visit? NO VITALS: TEMPERATURE: 97.8 F [36.6 C] (12/03/2023 11:02) BP: 135/84 (01/14/2024 13:23) RESP: 19 (01/14/2024 13:23) PULSE: 93 (01/14/2024 13:23) HT: 68 in [172.7 cm] (12/03/2023 11:02) WT: 142.6 lb [64.68 kg] (12/03/2023 11:02) BMI: 21.7 PAIN ASSESSMENT: (Most Recent Pain Score in Vitals Package: 2 (12/03/2023 11:02) ) The patient indicated that they and their close contacts have not traveled outside of the [place] in the past 21 days. The patient reports the following symptoms: No symptoms present The patient is not immunocompromised. The patient does not report having a history of Multi Drug Resistant Organism (MDRO) within the last five years. The patient does not report having been exposed to measles, chickenpox, or zoster in last 30 days. Patient reports no pain at this visit. Pain Score = 0. STRESS: Thank you for your service. Now let us serve you. At the [facility], we strive to provide you with exceptional health care that improves your health and well-being. Are you feeling sad, empty, or depressed? No Do you need to talk about things in your life that worry you or cause you stress? No Do you need to talk about personal problems, family problems, alcohol use, drug use, or mental or emotional illness? No SUICIDE SCREENING: The patient was asked, Over the past two weeks, how often have you been bothered by thoughts that you would be better off or of hurting yourself in some way? 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 No Patient advised to call the clinic for any concerns, questions, or symptoms. Patient and/or caregiver verbalized understanding of plan of care. Alcohol Use Screen (AUDIT-C): Alcohol Screen: SCREEN FOR ALCOHOL (AUDIT-C) An alcohol screening test (AUDIT-C) was negative (score=0). 1. How often did you have a drink containing alcohol in the past year? Consider a drink to be a 12 ounce can or bottle of regular beer, 8 ounces of malt liquor, a 5 ounce glass of table wine, or a 1.5 ounce shot of liquor (like scotch, gin, or vodka). Never 2. How many drinks containing alcohol did you have on a typical day when you were drinking in the past year? Response not required due to responses to other questions. 3. How often did you have six or more drinks on one occasion in the past year? Response not required due to responses to other questions. Tobacco Use Screening: The patient is a former tobacco user. The patient quit one to less than 5 years ago. Homelessness/Food Insecurity Screen: In the past 2 months, have you been living in stable housing that you own, rent, or stay in as part of a household? Yes - Living in stable housing. Are you worried or concerned that in the next 2 months you may NOT have stable housing that you own, rent, or stay in as part of a household? No - Not worried about housing near future The [employer] reports the following: Within the past 12 months, you worried whether your food would run out before you got money to buy more. Never true Within the past 12 months, the food you bought just didn't last and you didn't have money to get more. Never true Pneumococcal Conjugate Vaccine (PCV15/PCV20): Refuses PCV vaccine Immunization: PNEUMOCOCCAL CONJUGATE, UNSPECIFIED FORMULATION Refusal Reason: PATIENT DECISION Patient refuses all immunization(s) in the PneumoPCV group Date Documented: 06/09/24 09:01 Pain Assessment: - PAIN ASSESSMENT: .. Patient reports no pain at this visit. Pain Score = 0. Patient's self identified pain goal: 0 Weight Control/Nutrition Counseling: * The patient received the following counseling at this encounter: PAVE Foot Check: A complete foot check was completed at this encounter. VISUAL INSPECTION: Includes inspection for skin breaks, deformity, erythema, trauma, pallor on elevation, dependent rubor, nail deformities, extensive callus and pitting edema. Visual exam results: Normal PEDAL PULSES: Includes palpation of dorsalis and posterior tibial pulses and signs/symptoms of vascular compromise like pain, pallor, parasthesia or paralysis. Present (even if diminished) SENSORY CHECK: Includes 10 gram Monofilament ([place]) test of sensation. Intact (Greater than or equal to 80% of sites checked) Abnormal (Less than 80% of sites checked): Intact LOW-RISK: LOW RISK INFORMATION PROVIDED: 1. Advised patient not to walk barefoot. 2. Explained the importance of daily foot checks for changes. 3. Stressed the importance of daily foot hygiene, including bathing and complete drying. /jonathan/ CLARA ORDONEZ [facility]PN [facility] Signed: 06/09/2024 09:02 CLARA ORDONEZ [facility]
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
--- OUTSIDE RECORDS SUMMARY | 2024-12-04 08:00 | XMS_ITS | Encounter Summary ---
Author Name [facility] [place] [facility] [place] Address [address] [place] [address] Care Team Providers Care Supervisor Cook House Name Role Phone LIMA ROBERTS Primary Care [...] Name Patient's Relationship to Policy [place] TEJAS BCBOBBI [place] PREFERRED PROVIDER ORGANIZAT ION (PPO) [facility], SOUOct 09, 2021 [id number] [phone] SUNDAY BASS RK PATIENT [place] PREFERRED PROVIDER ORGANIZAT ION (PPO) [facility], Oct 09, 2021 [id number] [phone] SUNDAY BASS RK PATIENT CAREMARK ([id number])RX PRESCRIPT ION [facility], Oct 09, 2021 [id number] SUNDAY BASS RK [facility] ALLEG IANCE BENEF IT P Oct 29, 2024 [id number] [phone] SHARIF BASS [facility]IENT [facility] ORGANIZ[facility] ION ALLEG IANCE BENEF IT P Oct 29, 2024 [id number] [phone] SHARIF BASS PATIENT [facility] CE ORGANIZ[facility] ION TPA SAFIA CEE Oct 29, 2024 [id number] SUNDAY BASS RK PATIENT EXPRESS SCRIPTS RX [id number] PRESCRIPT ION 6MEDI [place] Oct 29, 2024 [id number] SUNDAY BASS RK PATIENT [facility] A LOVELL PREMI ER Oct 29, 2024 [id number] SUNDAY BASS RK PATIENT [employer] THERAPE[employer] CS RX PRESCRIPT ION RX PLAN Oct 29, 2022 BCBSIL [id number] [phone] SUNDAY BASS RK PATIENT Selected Encounter This section includes the information on record at PA for the Encounter. Date/Time Encounter Type Encounter Description Reason Provider Source Dec 04, 2024 01:00 PM TELEHEALTH FACILITY FEE PRIMARY CARE/MEDICINE ICD-10-CM E11.9 Type 2 diabetes mellitus without complications BRYSON LOPEZ [facility] Encounter Template Text not used by PA Assessments - Encounter Diagnoses This section includes the primary and secondary diagnoses documented for the Encounter. Date/Time Primary/Secondary Diagnosis Diagnosis Name Provider Source Dec 11, 2024 02:00 PM PRIMARY Type 2 diabetes mellitus without complications YONI LOPEZ [facility] Plan of Treatment: Future Appointments (+ 6 months) and Future Tests (+/- 45 days) The Plan of Treatment section includes future care activities for the patient from all PA treatmentfacilities. This section includes future appointments and future orders which are active, pending or scheduled. Future Appointments This section includes appointments that were scheduled to occur 6 months from the date of the Encounter, up to a maximum of 20 appointments. The data comes from all PA treatment facilities. Appointment Date/Time Appointment Type Appointme nt Facility Name Dec 19, 2024 03:00 PM [facility] Jan 05, 2025 03:00 PM [facility] Jan 19, 2025 03:00 PM [facility] Feb 16, 2025 03:00 PM [facility] March 02, 2025 03:00 PM [facility] March 16, 2025 03:00 PM [facility] March 24, 2025 10:00 AM [facility] - [facility] Mar 30, 2025 03:00 PM [facility] Apr 13, 2025 03:00 PM [facility] Jun 01, 2025 03:00 PM [facility] Lab Results: +/- 30 days of the encounter This section includes the Chemistry and Hematology Lab Results on record with PA for the patient. Radiology Reports and Pathology Reports are provided separately, in subsequent sections. Lab Results This section contains the Chemistry/Hematology Results that were resulted 30 days before or 30 daysafter the date of the Encounter. Date/Time Source Result Type Result - Unit Interpretation Reference Range Specimen Type Comment Dec 04, 2024 01:33 PM [facility] ALPHA-FETOPROTEIN(STL-PB) PLASMA Specimen Type : PLASMA No comment entered. Ordering Provider: JUAN CARLOS MENENDEZ Report Released Date/Time: Dec 04, 2024 01:31 PM Reporting Lab: [facility] [address] [address] Performing Lab: [facility] [address] [address] ALPHA-FETOPROTEIN(STL-PB) 2.74 ng/mL 1-8 .78 Dec 04, 2024 01:33 PM [facility] ANTI-NUCLEAR ANTIBODY (STL-PB) SERUM Specimen Type: SERUM No comment entered. Ordering Provider: JUAN CARLOS MENENDEZ Report Released Date/Time: Dec 04, 2024 01:31 PM Reporting Lab: [facility] [address] [address] Performing Lab: [facility] [address] [facility] [facility] [address] ANTI-NUCLEAR ANTIBODY (STL-PB) NEGATIVE Dec 04, 2024 01:33 PM [facility] ACTIN (SMOOTHMUSCLE) ANTIBODY IGG SERUM Specimen Type: SERUM No comment entered. Ordering Provider: JUAN CARLOS MENENDEZ Report Released Date/Time: Dec 04, 2024 01:31 PM Reporting Lab: [facility] [address] [address] Performing Lab: [facility] [address] [address] ACTIN (SMOOTHMUSCLE) ANTIBODY IGG POSITIVE {tite r} <20.1 Dec 04, 2024 01:33 PM [facility] SMA-TITER SERUM Specimen Type: SERUM No comment entered. Ordering Provider: JUAN CARLOS MENENDEZ Report Released Date/Time: Dec 04, 2024 01:31 PM Reporting Lab: [facility] [address] [address] Performing Lab: [facility] [address] [address] SMA-TITER 40 {titer} Dec 04, 2024 01:33 PM [facility] ANTI-MITOCHONDRIAL AB (STL-PB) SERUM Specimen Type: SERUM No comment entered. Ordering Provider: JUAN CARLOS MENENDEZ Report Released Date/Time: Dec 04, 2024 01:31 PM Reporting Lab: [facility] [address] [address] Performing Lab: [facility] [address] [address] ANTI-MITOCHONDRIAL AB (STL-PB) NEGATIVE {titer} Dec 04, 2024 01:33 PM [facility] FERRITIN SERUM Specimen Type: SERUM No comment entered. Ordering Provider: JUAN CARLOS MENENDEZ Report Released Date/Time: Dec 04, 2024 01:31 PM Reporting Lab: [place] [facility] [address] [place] [address] Performing Lab: [place] [facility] [address] [place] [address] FERRITIN 449 ng/mL H 22-275 Dec 04, 2024 01:33 PM [facility] ACUTE HEPATITIS PROFILE (PB) SERUM Sp ecimen Type: SERUM No comment entered. Ordering Provider: JUAN CARLOS MENENDEZ Report Released Date/Time: Dec 04, 2024 01:31 PM Reporting Lab: [place] [facility] [address] [place] [address] Performing Lab: [place] [facility] [address] [place] [address] HEPATITIS C AB (PB) Nonreactive Nonreact letitia HEPATITIS B CORE AB IGM(PB) Nonreactive Nonreactive HEPATITIS A IGM AB (PB) Nonreactive Nonr eactive HEPATITIS B SURF AG (PB) Nonreactive Non reactive Dec 04, 2024 01:33 PM [facility] IRON/TIBC PROFILE SERUM Specimen Type : SERUM No comment entered. Ordering Provider: JUAN CARLOS MENENDEZ Report Released Date/Time: Dec 04, 2024 01:31 PM Reporting Lab: [place] [facility] [address] [place] [address] Performing Lab: [place] [facility] [address] [place] [address] TIBC 328 ug/dL TRANSFERRIN 262 mg/dL 163-344 IRON SATURATION 32 20-50 IRON 105 ug/dL 65-175 Dec 04, 2024 01:33 PM [facility] COMPREHENSIVE METABOLIC PANEL PLASMA S pecimen Type: PLASMA No comment entered. Ordering Provider: JUAN CARLOS MENENDEZ Report Released Date/Time: Dec 04, 2024 01:31 PM Reporting Lab: [place] [facility] [address] [place] [address] Performing Lab: [place] [facility] [address] [place] [address] CREATININE 0.91 mg/dL 0.7-1.3 UREA NITROGEN 15 mg/dL 9-25 GLUCOSE 176 mg/dL H 72-99 SODIUM 142 meq/L 136-145 POTASSIUM 4.0 meq/L 3.5-5 CHLORIDE 104 meq/L 98-107 CARBON DIOXIDE 26 meq/L 22-31 CALCIUM 9.8 mg/dL 8.4-10.4 PROTEIN 8.4 g/dL 6-8.6 ALBUMIN 4.6 g/dL 3.4-5 TOTAL BILIRUBIN 0.5 mg/dL 0.2-1.2 ALKALINE PHOSPHATASE 66 U/L 40-150 AST/SGOT 20 U/L 5-34 ALT/SGPT 47 U/L H 8-40 EGFR (CKD-EPI 2020) 112 Nov 27, 2024 11:54 AM [facility] HGA1C BLOOD Specimen Type: BLOOD No comment entered. Ordering Provider: LIMA ROBERTS Report Released Date/Time: Dec 03, 2023 11:14 AM Reporting Lab: [place] [facility] [address] [place] [address] Performing Lab: [place] [facility] [address] [place] [address] HGA1C 8.1 H 4.0-6.0 Nov 27, 2024 11:54 AM [facility] CHOLESTEROL PANEL (PB) PLASMA Specimen Type: P TJ Comment: LDL calculation invalid when Triglyceride exceeds 250 mg/dl Ordering Provider: LIMA ROBERTS Report Released Date/Time: Dec 03, 2023 11:14 AM Reporting Lab: [place] [facility] [address] [place] [address] Performing Lab: [place] [facility] [address] [place] [address] CHOLESTEROL 150 mg/dL 0-200 TRIGLYCERIDE 492 mg/dL H 0-150 CALCULATED LDL comment mg/dL HDL(New) 28.4 mg/dL L >40 HDL % OF TOTAL CHOLESTEROL (PB) 18.9 >25 DIRECT LDL(MA) 70.0 mg/dL 0-99.9 Nov 27, 2024 11:54 AM [facility] TSH (MA-PB) SERUM Specimen Typ e: SERUM No comment entered. Ordering Provider: LIMA ROBERTS Report Released Date/Time: Dec 03, 2023 11:14 AM Reporting Lab: [place] [facility] [address] [place] [address] Performing Lab: [place] [facility] [address] [place] [address] TSH 1.339 u[IU]/mL 0.47-5 Nov 27, 2024 11:54 AM [facility] COMPREHENSIVE METABOLIC PANEL PLASMA Specimen Type: PLASMA Comment: LDL calculation invalid when Triglyceride exceeds 250 mg/dl Ordering Provider: LIMA ROBERTS Report Released Date/Time: Dec 03, 2023 11:14 AM Reporting Lab: [place] [facility] [address] [place] [address] Performing Lab: [place] [facility] [address] [place] [address] CREATININE 0.90 mg/dL 0.7-1.3 UREA NITROGEN 14 mg/dL 9-25 GLUCOSE 166 mg/dL H 72-99 SODIUM 138 meq/L 136-145 POTASSIUM 4.4 meq/L 3.5-5 CHLORIDE 103 meq/L 98-107 CARBON DIOXIDE 25 meq/L 22-31 CALCIUM 9.3 mg/dL 8.4-10.4 PROTEIN 8.1 g/dL 6-8.6 ALBUMIN 4.3 g/dL 3.4-5 TOTAL BILIRUBIN 0.4 mg/dL 0.2-1.2 ALKALINE PHOSPHATASE 66 U/L 40-150 AST/SGOT 64 U/L H 5-34 ALT/SGPT 80 U/L H 8-40 EGFR (CKD-EPI 2020) 114 Nov 27, 2024 11:54 AM [facility] URINE ALBUMIN PROFILE-ih (PB) URINE Specimen Type: URINE No comment entered. Ordering Provider: LIMA ROBERTS Report Released Date/Time: Dec 03, 2023 11:14 AM Reporting Lab: [place] [facility] [address] [place] [address] Performing Lab: [place] [facility] [address] [place] [address] URINE ALBUMIN (PB-STL) 41.50 mg/L H 0-30 uACR (PB-MA) 23.53 ug/mg CREATININE URINE/OTHERS 176.37 mg/dL Nov 27, 2024 11:54 AM [facility] CBC BLOOD Specimen Type: BLOOD No comment entered. Ordering Provider: LIMA ROBERTS Report Released Date/Time: Dec 03, 2023 11:14 AM Reporting Lab: [place] [facility] [address] [place] [address] Performing Lab: [place] [facility] [address] [place] [address] WBC 6.9 10*3/uL 3.6-11.2 RBC 5.09 10*6/uL 4.10-5.70 HGB 15.8 g/dL 13.1-16.8 HCT 45.9 38.2-48.4 MCV 90.2 fL 80.0-100.0 MCH 31.0 pg 27.0-34.0 MCHC 34.4 g/dL 33.0-36.0 PLT 208 10*3/uL 150-400 MPV 11.9 fL H 7.5-11.2 RDW <11.8 11.8-15.1 LYMPHOCYTES, AUTO % 31.0 MONOCYTES, AUTO % 8.3 NEUTROPHILS, AUTO % 58.8 EOSINOPHILS, AUTO % 1.2 BASOPHILS, AUTO % 0.4 LYMPHOCYTES, ABSOLUTE 2.13 10*3/uL 0.77- 4.50 MONOCYTES, ABSOLUTE 0.57 10*3/uL 0.19-0. 8 NEUTROPHILS, ABSOLUTE 4.04 10*3/uL 2.10- 8.00 EOSINOPHILS, ABSOLUTE 0.08 10*3/uL 0.00- 0.60 BASOPHILS, ABSOLUTE 0.03 10*3/uL 0.00-0. 20 IMMATURE GRANS, AUTO % 0.3 IMMATURE GRANS, AUTO ABS 0.02 10*3/uL 0. 00-0.05 Vital Signs: All taken on the encounter date This section contains inpatient and outpatient Vital Signs collected on the date of the Encounter. Date/Time Temperature Pulse Blood Pressure Respiratory Rate SP02 Pain Height Weight Body Mass Index Source Dec 04, 2024 01:02 PM 77 115/71 17 94 3 141.9 22 [facility] Social History: Smoking Status (Most current) and Tobacco Use (All prior to encounter date) This section includes the most current, and the historical, smoking and tobacco- related health factors from the PA facility where the Encounter took place. Current Smoking Status This section includes the most current smoking, or tobacco-related health factor, from the PA facility where the Encounter took place. Date/Time Current Smoking Status Comment Facil ity Jun 09, 2024 09:00 AM VA-TOBACCO FORMER USER [facility] Tobacco Use History This section includes a history of the smoking, or tobacco-related health factors, that were collected on or before the date of the Encounter. The data comes from the PA facility where the Encounter took place. 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 [facility] Jun 05, 2022 10:30 AM VA-TOBACCO USE MED NO [facility] Jun 05, 2022 10:30 AM VA-TOBACCO USE WI 30 MIN OF WAKE UP [facility] Jun 05, 2022 10:30 AM VA-TOBACCO USER EVERY DAY [facility] May 19, 2021 08:30 AM VA-TOBACCO NEVER USED [facility] Jun 02, 2019 09:31 AM VA-TOBACCO DOESNT USE WI 30 MIN WAKEUP [facility] Jun 02, 2019 09:31 AM VA-TOBACCO USE 5 TO 15 YEARS [facility] Jun 02, 2019 09:31 AM VA-TOBACCO USE ADVICE [facility] Jun 02, 2019 09:31 AM VA-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 [facility] Jun 02, 2019 09:31 AM VA-TOBACCO USE MED NO [facility] Jun 02, 2019 09:31 AM VA-TOBACCO USER EVERY DAY [facility] Jul 15, 2018 08:29 AM CURRENT TOBACCO USER [facility] Jul 15, 2018 08:29 AM CURRENT TOBACCO US ER (NOT READY TO QUIT) [facility] Jul 15, 2018 08:29 AM TOBACCO CESSATION REFERRAL DECLI DESTIN [facility] Jul 15, 2018 08:29 AM TOBACCO MEDS OFFERED BUT DECLINE D [facility] Jul 15, 2018 08:29 AM TOBACCO USER OFFERED MEDS [facility] Dec 05, 2017 01:07 PM CURRENT TOBACCO USER [facility] Dec 05, 2017 01:07 PM CURRENT TOBACCO US ER (NOT READY TO QUIT) [facility] Dec 05, 2017 01:07 PM TOBACCO CESSATION REFERRAL DECLI DESTIN [facility] Dec 05, 2017 01:07 PM TOBACCO MEDS OFFERED BUT DECLINE D [facility] Dec 05, 2017 01:07 PM TOBACCO USER OFFERED MEDS [facility] Advance Directives: All historical and current Section Date Range: From patient's date of to the date document was created. This section includes ALL of a patient's completed or amended PA Advance and Rescinded Directives. The entries below indicate that a directive exists for the patient, but an actual copy is not included with this document. The data comes from all PA facilities. Date Advance Directives Provider Source Aug 06, 2015 ADVANCE DIRECTIVE DISCUSSION FLORENCIO EVANS N [facility] Encounter Notes: All associated encounter notes This section contains the clinical notes associated to the Encounter. Date/Time Encounter Note(s) Provider Source Dec 04, 2024 12:52 PM PRIMARY CARE NURSI NG NOTE: LOCAL TITLE: PRIMARY CARE NURSING PROGRESS NOTE (TEXT) NURSING P STANDARD TITLE: PRIMARY CARE NURSING NOTE DATE OF NOTE: DEC 04, 2024@12:52 ENTRY DATE: DEC 04, 2024@12:52:51 AUTHOR: FAVIAN LOPEZ COSIGNER: URGENCY: STATUS: COMPLETED Per [facility] Directive 1605.06, wristband documentation: Patient wristband was removed and destroyed by (staff name) Cady Lopez RN and placed in the designated [employer]ov[employer] bin. Established Patient SHARIF BASS IS A 34 YEAR OLD MALE BEING SEEN IN CLINIC DEC 04, 2024. == == REASON FOR VISIT: The is here for a 6 month follow up for DM.BG running about 90-140s all but last week while he was sick. The has no complaints today. Auscultated the 's lungs and heart. lungs clear throughout good movement of air. Heart sounds are good, RRR Are you receiving care any where other than the VA? No HEALTH AND SURGICAL HISTORY: Does patient report using home oxygen? No CURRENT ACTIVE MEDICATIONS FOR REVIEW: Allergies/ADRs (Tool #5) FACILITY ALLERGY/ADR -------- [facility] NO KNOWN ALLERGIES [facility] No Known Allergies Med. Reconciliation (Tool #1) INCLUDED IN THIS LIST: Alphabetical list of active outpatient prescriptions dispensed from this PA (local) and dispensed from another PA or [facility] facility (remote) as well as inpatient orders (local pending and active), local clinic medications, locally documented non-VA medications, and local prescriptions that have or been discontinued in the past 90 days. Non-VA Meds Last Documented On: Data not found NOTE The display of VA prescriptions dispensed from another PA or [facility] facility (remote) is limited to active outpatient prescription entries matched to National Drug File at the originating site and may not include some items such as investigational drugs, compounds, etc. NOT INCLUDED IN THIS LIST: Medications self-entered by the patient into personal health records (i.e. exur[employer] cosmetics) are NOT included in this list. Non-VA medications documented outside this PA, remote inpatient orders (regardless of status) and remote clinic medications are NOT included in this list. The patient and provider must always discuss medications the patient is taking, regardless of where the medication was dispensed or obtained. OUTPT CETIRIZINE HCL 10MG TAB (Status = Active) TAKE ONE TABLET BY MOUTH ONCE A DAY FOR ALLERGY SYMPTOMS Rx# [id number] Last Released: 09/09/24 Qty/Days Supply: Rx Expiration Date: 06/17/25 Refills Remainin Indication: FOR ALLERGY SYMPTOMS OUTPT GLIMEPIRIDE 4MG TAB (Status = Active) TAKE TWO TABLETS BY MOUTH EVERY MORNING FOR DIABETES TAKE WITH BREAKFAST OR FIRST FOOD. Rx# [id number] Last Released: 11/24/24 Qty/Days Supply: 180/ Rx Expiration Date: 06/17/25 Refills Remainin Indication: FOR DIABETES OUTPT INSULIN,GLARGINE,HUMAN 100 UNIT/ML INJ (Status = Discontinued) INJECT 10 UNITS UNDER THE SKIN EVERY EVENING TO CONTROL BLOOD SUGAR. ADMINISTER AT SAME TIME EACH DAY DIRECTED. DISCARD ANY VIAL 28 DAYS AFTER OPENING. Rx# [id number] Last Released: 06/19/24 Qty Supply: Rx Expiration Date: 09/14/24 Refills Remainin OUTPT INSULIN,GLARGINE,HUMAN 100 UNIT/ML INJ (Status = Active/Suspended) INJECT 10 UNITS UNDER THE SKIN EVERY EVENING TO CONTROL BLOOD SUGAR. ADMINISTER AT SAME TIME EACH DAY DIRECTED. DISCARD ANY VIAL 28 DAYS AFTER OPENING. Rx# [id number] Last Released: 09/30/24 Qty/Days Supply: Rx Expiration Date: 09/30/25 Refills Remainin SUPPLIES OUTPT INSULIN SYRINGE 0.5ML 31G 8MM (Status = Discontinued) USE SYRINGE UNDER THE SKIN ONCE A DAY FOR USE WITH INSULIN TO CONTROL BLOOD SUGAR. Rx# [id number] Last Released: 09/09/24 Qt Supply: Rx Expiration Date: 09/14/24 Refills Remainin OUTPT INSULIN SYRINGE 0.5ML 31G 8MM (Status = Discontinued) USE SYRINGE UNDER THE SKIN ONCE A DAY FOR USE WITH INSULIN TO CONTROL BLOOD SUGAR. Rx# [id number] Last Released: Supply: Rx Expiration Date: 09/30/25 Refills Remainin OUTPT INSULIN SYRINGE 0.5ML 31G 8MM (Status = Active) USE SYRINGE UNDER THE SKIN ONCE A DAY FOR DIABETES TO USE WITH INSULIN Rx# [id number] Last Released: 11/19/24 Qty/Days Supply: 100/90 Rx Expiration Date: 09/30/25 Refills Remainin Indication: FOR DIABETES PHARMACY TERMS AND POSSIBLE PATIENT ACTIONS INPT = PA inpatient order IV = VA intravenous medication OUTPT = PA outpatient prescription PHARMACY POSSIBLE PATIENT TERMS EXPLANATION ACTIONS -------- ----- ACTIVE A prescription that can be If you have refills, filled at the local PA pharmacy. you may request a refill of this prescription from your VA pharmacy. CLINIC A medication you received during If you have questions a visit to a PA clinic or about this medication emergency department. contact your PA healthcare team. DISCONTINUED A prescription your provider has Contact your VA stopped. It is no longer healthcare team if you available to be sent to you or need more of this picked up at the PA pharmacy medication. window. A prescription which is [...] the VA. Or, it may be an emcb-zmz-lyuxaca (OTC), herbal, dietary supplements or sample medication. [...] An active prescription that is Contact your VA not scheduled to be filled yet. pharmacy if you need You should receive it before this medication now. you run out. Patient reports taking medications as ordered. Does need a refill of Metformin IS PATIENT TAKING ANY OVER THE COUNTER MEDICATIONS, SUCH VITAMINS OR HERBAL SUPPLEMENTS, INCLUDING ANY MEDICATIONS PRESCRIBED BY ANOTHER PHYSICIAN? No ALLERGIES/ADVERSE REACTIONS: Patient has answered NKA Does patient have any new allergies to report since last visit? NO VITALS: TEMPERATURE: 97.2 F [36.2 C] (09/13/2024 11:20) BP: 122/77 (09/13/2024 11:20) RESP: 20 (06/09/2024 08:53) PULSE: 74 (09/13/2024 11:20) HT: 68.0 in [172.7 cm] (06/09/2024 08:53) WT: 150.0 lb [68.04 kg] (09/13/2024 11:20) BMI: 22.9 PAIN ASSESSMENT: (Most Recent Pain Score in Vitals Package: 0 (09/13/2024 11:20) ) The patient indicated that they and [...] chickenpox, or zoster in last 30 days. STRESS: Thank you for your service. Now let us serve you. At the [facility], we strive to provide you with exceptional health care that improves your health and well-being. Are you feeling sad, empty, or depressed? No Do you need to talk about things in your life that worry you or cause you stress? Yes Do you need to talk about personal problems, family problems, alcohol use, drug use, or mental or emotional illness? Yes Scenic talks to a counselor in the building. SUICIDE SCREENING: The patient was asked, Over the past two weeks, how often have you been bothered by thoughts that you would be better off or of hurting yourself in some way? Not At All SPIRITUAL ASSESSMENT: Are there uatsdin practices or spiritual concerns you want the executive advisor, your physician, and other health care team members to immediately know about? No Patient advised to call the clinic for any concerns, questions, or symptoms. Patient and/or caregiver verbalized understanding of plan of care. RHS Screen - VS: RHS Screen Session Format: Face to Face Environmental Check Upon inquiry, the individual reports that the environment is safe to proceed. Informed Consent to Screen and Document The individual consents to proceed with screening. The individual consents to documentation of responses. PRIMARY SCREEN: In the past 12 months, how often did a current or former intimate partner (e.g., boyfriend, girlfriend, , , sexual partner): 1. Scream or curse at you Never 2. Insult or talk down to you Never 3. Threaten you with harm Never 4. Physically hurt you Never 5. Force or pressure you to have sexual contact against your will, or when you were unable to say no Never The HITS tool (items 1-4 above) is [place] copyright protected by [employer] MD, and the user has full rights to use it throughout the PA system. PRIMARY SCREEN RESULT: The Primary Screen is NEGATIVE. The individual answered never to all forms of IPV above (i.e., answered never to all 5 items) The individual accepts education and/or resources: Other: EDUCATION: Other: Not needed COVID-19 Immunization - L,N,P,PH,U: Refused Moderna Monovalent COVID-19 vaccine Immunization: COVID-19 (MODERNA), MRNA, LNP-S, PF, 50 MCG/0.5 ML (AGES 12+ YEARS) Refusal Reason: PATIENT DECISION Patient refuses all immunization(s) in the COVID-19 group Date Documented: 12/04/24 13:17 Pneumococcal Conjugate Vaccine (PCV15/PCV20) - L,N,P,PH,U: Refuses PCV vaccine Immunization: PNEUMOCOCCAL CONJUGATE, UNSPECIFIED FORMULATION Refusal Reason: PATIENT DECISION Patient refuses all immunization(s) in the PneumoPCV group Date Documented: 12/04/24 13:17 Pain Assessment: - PAIN ASSESSMENT: .. Patient is reporting some pain. PAIN SCORE TODAY: 3 Patient's self identified pain goal: 0 Patient/Nurse Interview: * * Patient stated that adequate information was received regarding the condition and/or treatment. Comment: If you have any questions please call the clinic /es/ Favian Lopez RN,BSN MANE Watson Signed: 12/04/2024 13:21 FAVIAN LOPEZ
--- OUTSIDE RECORDS SUMMARY | 2024-12-04 08:01 | XMS_ITS | Encounter Summary ---
Author Name [facility] [place] [facility] [place] [facility] [place] [facility] [place] Address [address] [place] [address] Care Team Providers Care Corporate Law Assistant Name Role Phone AUDREY HOFFMAN Primary Care [...] [place] PREFERRED PROVIDER ORGANIZAT ION (PPO) [facility] 09, 2021 [id number] [phone] SUNDAY BASS RK PATIENT [place] PREFERRED PROVIDER ORGANIZAT ION (PPO) [facility], SOUOct 09, 2021 [id number] [phone] SUNDAY BASS RK PATIENT [employer] ([id number])RX PRESCRIPT ION [facility], SOUOct 09, 2021 [id number] SUNDAY BASS RK PATIENT [facility] ORGANIZ[facility] ION ALLEG IANCE BENEF IT P Oct 29, 2024 [id number] SHARIF BASS PATIENT [employer] [facility] CE ORGANIZAT ION ALLEG IANCE BENEF IT P Oct 29, 2024 [id number] SHARIF BASS PATIENT [employer] CE ORGANIZAT ION TPA VINCENZOG HEATHER CEE Oct 29, 2024 [id number] SUNDAY BASS RK PATIENT [employer] RX [id number] PRESCRIPT ION 6MEDI [place] Oct 29, 2024 [id number] SUNDAY BASS PATIENT [facility] A COOPER PREMI ER Oct 29, 2024 [id number] SUNDAY BASS RK PATIENT [employer] THERAPE[employer] CS RX PRESCRIPT ION RX PLAN Oct 29, 2022 [id number] SUNDAY BASS RK PATIENT Selected Encounter This section includes the information on record at [place] for the Encounter. Date/Time Encounter Type Encounter Description Reason Provider Source Dec 04, 2024 01:01 PM OFFICE O/P EST LOW 20 MIN PRIMARY CARE/MEDICINE ICD-10-CM E11.9 Type 2 diabetes mellitus without complications CHARLETTE MENENDEZ Latrell Encounter Template Text not used by [place] Assessments - Encounter Diagnoses This section includes the primary and secondary diagnoses documented for the Encounter. Date/Time Primary/Secondary Diagnosis Diagnosis Name Provider Source Dec 11, 2024 01:59 PM PRIMARY Type 2 diabetes mellitus without complications CHARLETTE MENENDEZ [facility] Dec 11, 2024 01:59 PM SECONDARY Elevation of levels of liver transaminase levels CHARLETTE MENENDEZ [facility] Dec 11, 2024 01:59 PM SECONDARY Osteoarthritis of knee, unspecified GEMMACHARLETTE CHRISTIANSON [facility] Dec 11, 2024 01:59 PM SECONDARY Pure hyperglyceridemia CHARLETTE MENENDEZ [facility] Plan of Treatment: Future Appointments (+ 6 months) and Future Tests (+/- 45 days) The Plan of Treatment section includes future care activities for the patient from all [place] treatmentfacilities. This section includes future appointments and future orders which are active, pending or scheduled. Future Appointments This section includes appointments that were scheduled to occur 6 months from the date of the Encounter, up to a maximum of 20 appointments. The data comes from all [place] treatment facilities. Appointment Date/Time Appointment Type Appointme nt Facility Name Dec 19, 2024 03:00 PM [facility] Jan 05, 2025 03:00 PM [facility] Jan 19, 2025 03:00 PM [facility] Feb 16, 2025 03:00 PM [facility] March 02, 2025 03:00 PM [facility] March 16, 2025 03:00 PM [facility]ORY - MEDICINE [facility] March 24, 2025 10:00 AM AMBULATORY - NONE [place] [facility] Mar 30, 2025 03:00 PM [facility] Apr 13, 2025 03:00 PM [facility] Jun 01, 2025 03:00 PM [facility]ORY - MEDICINE [facility] Lab Results: +/- 30 days of the encounter This section includes the Chemistry and Hematology Lab Results on record with [facility] for the patient. Radiology Reports and Pathology [...] Dec 04, 2024 01:31 PM Reporting Lab: [facility] [address] [facility] [address] Performing Lab: [facility] [address] [facility] [address] ALPHA-FETOPROTEIN(STL-PB) 2.74 ng/mL 1-8 .78 Dec 04, 2024 01:33 PM [facility] ANTI-NUCLEAR ANTIBODY (STL-PB) SERUM Specimen Type: SERUM No comment entered. Ordering Provider: JUAN CARLOS MENENDEZ Report Released Date/Time: Dec 04, 2024 01:31 PM Reporting Lab: [facility] [address] [facility] [address] Performing Lab: [facility] [address] [facility] [address] ANTI-NUCLEAR ANTIBODY (STL-PB) NEGATIVE Dec 04, 2024 01:33 PM [facility] ACTIN (SMOOTHMUSCLE) ANTIBODY IGG SERUM Specimen Type: SERUM No comment entered. Ordering Provider: JUAN CARLOS MENENDEZ Report Released Date/Time: Dec 04, 2024 01:31 PM Reporting Lab: [facility] [address] [facility] [address] Performing Lab: [facility] [address] [facility] [address] ACTIN (SMOOTHMUSCLE) ANTIBODY IGG POSITIVE {tite r} <20.1 Dec 04, 2024 01:33 PM [facility] ANTI-MITOCHONDRIAL AB (STL-PB) SERUM Specimen Type: SERUM No comment entered. Ordering Provider: JUAN CARLOS MENENDEZ Report Released Date/Time: Dec 04, 2024 01:31 PM Reporting Lab: [place] [address] [facility] [address] Performing Lab: [facility] [address] [facility] [address] ANTI-MITOCHONDRIAL AB (STL-PB) NEGATIVE {titer} Dec 04, 2024 01:33 PM [facility] SMA-TITER SERUM Specimen Type: SERUM No comment entered. Ordering Provider: JUAN CARLOS MENENDEZ Report Released Date/Time: Dec 04, 2024 01:31 PM Reporting Lab: [place] [address] [facility] [address] Performing Lab: [place] [address] [address] [facility] [address] SMA-TITER 40 {titer} Dec 04, 2024 01:33 PM [facility] FERRITIN SERUM Specimen Type: SERUM No comment entered. Ordering Provider: JUAN CARLOS MENENDEZ Report Released Date/Time: Dec 04, 2024 01:31 PM Reporting Lab: [place] [facility] [address] [place] [address] Performing Lab: [place] [facility] [address] [place] [address] FERRITIN 449 ng/mL H 22-275 Dec 04, 2024 01:33 PM [facility] IRON/TIBC PROFILE SERUM Specimen Type : SERUM No comment entered. Ordering Provider: JUAN CARLOS MENENDEZ Report Released Date/Time: Dec 04, 2024 01:31 PM Reporting Lab: [place] [facility] [address] [place] [address] Performing Lab: [place] [facility] [address] [place] [address] TIBC 328 ug/dL TRANSFERRIN 262 mg/dL 163-344 IRON SATURATION 32 20-50 IRON 105 ug/dL 65-175 Dec 04, 2024 01:33 PM [facility] ACUTE HEPATITIS PROFILE (PB) SERUM Sp ecimen Type: SERUM No comment entered. Ordering Provider: JUAN CARLOS MENENDEZ Report Released Date/Time: Dec 04, 2024 01:31 PM Reporting Lab: [place] [facility] [address] [place] [address] Performing Lab: [place] [facility] [address] [place] [address] HEPATITIS C AB (PB) Nonreactive Nonreact letitia [...] HOSPITAL [address] [place] [address] Performing Lab: [place] [facility] [address] [place] [address] CREATININE 0.91 mg/dL 0.7-1.3 UREA NITROGEN 15 [...] 2020) 112 Nov 27, 2024 11:54 AM [facility] HGA1C BLOOD Specimen Type: BLOOD No comment entered. Ordering Provider: AUDREY HOFFMAN Report Released Date/Time: Dec 03, 2023 11:14 AM Reporting Lab: [place] [facility] [address] [place] [address] Performing Lab: [place] [facility] [address] [place] [address] HGA1C 8.1 H 4.0-6.0 Nov 27, 2024 11:54 AM [facility] CHOLESTEROL PANEL (PB) PLASMA Specimen Type: P LASSUNDAY Comment: LDL calculation invalid when Triglyceride exceeds 250 mg/dl Ordering Provider: AUDREY HOFFMAN Report Released Date/Time: Dec 03, 2023 11:14 AM Reporting Lab: [place] [facility] [address] [place] [address] Performing Lab: [place] [facility] [address] [place] [address] CHOLESTEROL 150 mg/dL 0-200 TRIGLYCERIDE 492 mg/dL H 0-150 CALCULATED LDL comment mg/dL HDL(New) 28.4 mg/dL L >40 HDL % OF TOTAL CHOLESTEROL (PB) 18.9 >25 DIRECT LDL(MA) 70.0 mg/dL 0-99.9 Nov 27, 2024 11:54 AM [facility] TSH (MA-PB) SERUM Specimen Typ e: SERUM No comment entered. Ordering Provider: AUDREY HOFFMAN Report Released Date/Time: Dec 03, 2023 11:14 AM Reporting Lab: [place] [facility] [address] [place] [address] Performing Lab: [place] [facility] [address] [place] [address] TSH 1.339 u[IU]/mL 0.47-5 Nov 27, 2024 11:54 AM [facility] COMPREHENSIVE METABOLIC PANEL PLASMA Specimen Type: PLASMA Comment: LDL calculation invalid when Triglyceride exceeds 250 mg/dl Ordering Provider: AUDREY HOFFMAN Report Released Date/Time: Dec 03, 2023 11:14 AM Reporting Lab: [place] [facility] [address] [place] [address] Performing Lab: [place] [facility] [address] [place] [address] CREATININE 0.90 mg/dL 0.7-1.3 UREA NITROGEN 14 [...] 2020) 114 Nov 27, 2024 11:54 AM [facility] CB CBC BLOOD Specimen Type: BLOOD No comment entered. Ordering Provider: AUDREY HOFFMAN Report Released Date/Time: Dec 03, 2023 11:14 AM Reporting Lab: [place] [facility] [address] [place] [address] Performing Lab: [place] [facility] [address] [place] [address] WBC 6.9 10*3/uL 3.6-11.2 RBC 5.09 10*6/uL [...] GRANS, AUTO ABS 0.02 10*3/uL 0. 00-0.05 Nov 27, 2024 11:54 AM [facility] URINE ALBUMIN PROFILE-ih (PB) URINE Specimen Type: URINE No comment entered. Ordering Provider: AUDREY HOFFMAN Report Released Date/Time: Dec 03, 2023 11:14 AM Reporting Lab: [place] [facility] [address] [facility] [facility] [address] Performing Lab: [place] [facility] [address] [facility] [place] [facility] [address] URINE ALBUMIN (PB-STL) 41.50 mg/L H 0-30 uACR (PB-MA) 23.53 ug/mg CREATININE URINE/OTHERS 176.37 mg/dL Advance Directives: All historical and current Section Date Range: From patient's date of to the date document was created. This section includes ALL of a patient's completed or amended [place] Advance and Rescinded Directives. The entries below indicate that a directive exists for the patient, but an actual copy is not included with this document. The data comes from all [place] facilities. Date Advance Directives Provider Source Aug 06, 2015 ADVANCE DIRECTIVE DISCUSSION FLORENCIO EVANS N [facility] Encounter Notes: All associated encounter notes This section contains the clinical notes associated to the Encounter. Date/Time Encounter Note(s) Provider Source March 24, 2025 04:18 PM PHYSICIAN LETTERS: LOCAL TITLE: TEST RESULT GENERAL LETTER STL STANDARD TITLE: PHYSICIAN LETTERS DATE OF NOTE: MARCH 24, 2025@16:18 ENTRY DATE: MARCH 24, 2025@16:18:31 AUTHOR: AUDREY HOFFMAN EXP COSIGNER: URGENCY: STATUS: COMPLETED [facility] [address] [place] [address] MARCH 24, 2025 SHARIF BASS [address] [place] [phone] Dear Sharif Bass, I would like to update you on your recent test results. US ABDOMEN LTD, SINGLE ORG OR QUADRANT Exm Date: MARCH 24, 2025@09:36 Req Phys: JUAN CARLOS MENENDEZ Pat Loc: PB-PAR CVT PCP FLOAT(PRO) (Req Img Loc: PB-ULTRASOUND Service: Unknown [place] [address] (Case [id number] COMPLETE) US ABDOMEN LTD, SINGLE ORG OR DAMION(US Detailed) Reason for Study: Request RUQ US for evaluation of liver enzymes Clinical History: Report Status: Verified Date Reported: MARCH 24, 2025 Report: Sonographic evaluation demonstrates a normal-appearing gallbladder, with no stones or mucosal thickening. The liver is normal in size, with no mass or evidence of intrahepatic biliary distention. The common bile duct is normal in caliber at approximately 7 mm. The right kidney and pancreas are normal. There is no ascites. Impression: No acute process FUTURE APPOINTMENTS: 03/30/2025 15:00 PB-JAKE BH [facility] IND TURQ 04/13/2025 15:00 PB-JAKE [facility] IND TURQ 06/02/2025 08:30 PB-JAKE PACT ECHO PCP Sincerely, Audrey Hoffman MD [facility] Primary Care [place],AUDREY HOWE CB Dec 25, 2024 02:15 PM PRIMARY CARE NOTE: LOCAL TITLE: LAB/TEST RESULTS GENERAL NOTE PB STANDARD TITLE: PRIMARY CARE NOTE DATE OF NOTE: DEC 25, 2024@14:15 ENTRY DATE: DEC 25, 2024@14:15:15 AUTHOR: JUAN CARLOS MENENDEZ EXP COSIGNER: URGENCY: STATUS: COMPLETED Juan Carlos Menenedz [facility] [place], [place] [address] SHARIF BASS [address] [place], [place] [address] Nov Dear Mr. Bass, Your lab results from Nov are noted below. Your lab results are noted below. The AST has reduced from 64-20 which is normal. The ALT has reduced from 80-47 which is just mildly elevated. These results show that the insult to the liver that caused the liver enzyme elevation is resolving. When I look back at your lab results dated 11/27/2023 which is the previous date of the elevated liver enzymes, it came to my attention that you had just been diagnosed with flu 5 days earlier. I think that having the flu could cause the liver enzyme elevation. However, I do not know that that is the case. I did obtain other lab for more extensive evaluation which is noted below. This lab looks for various causes of liver enzyme elevation including cancer, viral hepatitis, infiltrative diseases like hemochromatosis, autoimmune hepatitis, and biliary disease. The ferritin level was mildly elevated at 449 which can be an acute phase reactant which means that it could be elevated just because one is sick. The only lab of concern is the positive ASMA along with its elevated titer. This could be an indicator of autoimmune hepatitis, but I question its significance given that the KAUSHAL was normal. I have sent a message to my food quality technician colleague to ask him of the significance. I really think that the elevated liver enzymes were secondary to the flu illness that you had. Nevertheless, I think it would be appropriate to repeat the lab (liver enzymes only) in 3 months. It would also be reasonable to obtain a liver ultrasound also at the time of the blood draw. I have ordered a repeat of the liver enzymes 3 months from now and have ordered an ultrasound of your liver. I will await my colleagues comments about the elevated ASMA with positive titer and will let you know if this is significant after his response. Collection DT Specimen Test Name Result Units Ref Range 12/04/2024 13:33 PLASMA CREATININE 0.91 mg/dL 0.7 - 1.3 12/04/2024 13:33 PLASMA UREA NITROGEN 15 mg/dL 9 - 25 12/04/2024 13:33 PLASMA GLUCOSE 176 H mg/dL 72 - 99 12/04/2024 13:33 PLASMA SODIUM 142 mEq/L 136 - 145 12/04/2024 13:33 PLASMA POTASSIUM 4.0 mEq/L 3.5 - 5 12/04/2024 13:33 PLASMA CHLORIDE 104 mEq/L 98 - 107 12/04/2024 13:33 PLASMA CARBON DIOXIDE 26 mEq/L 22 - 31 12/04/2024 13:33 PLASMA CALCIUM 9.8 mg/dL 8.4 -10.4 12/04/2024 13:33 PLASMA PROTEIN 8.4 g/dL 6 - 8.6 12/04/2024 13:33 PLASMA ALBUMIN 4.6 g/dL 3.4 - 5 12/04/2024 13:33 PLASMA TOTAL BILIRUBIN 0.5 mg/dL 0.2 - 1.2 12/04/2024 13:33 PLASMA ALKALINE PHOSPHAT 66 U/L 40 - 150 12/04/2024 13:33 PLASMA AST/SGOT 20 U/L 5 - 34 12/04/2024 13:33 PLASMA ALT/SGPT 47 H U/L 8 - 40 12/04/2024 13:33 PLASMA EGFR (CKD-EPI 202 112 12/04/2024 13:33 alpha-fetoprotein 2.74 nc/mL 1 -8.78 12/04/2024 13:33 SMA-Titer 1:40 titer 12/04/2024 13:33 KAUSHAL negative 12/14/2024 13:33 ASMA positive <=20.1 12/14/2024 13:33 AMA negative 12/14/2024 13:33 hepatitis A IgM AB nonreactive 12/14/2024 13:33 coreHb nonreactive 12/14/2024 13:33 hepatitis B surface AG nonreactive 12/14/2024 13:33 ferritin 449 H 12/14/2024 13:33 hepatitis C AB nonreactive 12/14/2024 13:33 iron saturation 32 20-50 12/14/2024 13:33 transferrin 262 163-344 12/14/2024 13:33 iron 105 65-175 12/14/2024 13:33 TIBC 328 Your future appointments are as follows: 01/05/2025 15:00 PB-[facility]KE [facility] TURQ 01/19/2025 15:00 PB-[facility]KE BH [facility] TURQ 02/02/2025 15:00 PB-JAKE BH [facility] IND TURQ 02/16/2025 15:00 PB-JAKE BH [facility] IND TURQ 03/02/2025 15:00 PB-JAKE BH [facility] IND TURQ 03/16/2025 15:00 PB-JAKE BH [facility] IND TURQ 03/30/2025 15:00 PB-JAKE BH [facility] IND TURQ 06/02/2025 08:30 PB-JAKE PACT ECHO PCP Sincerely, Juan Carlos Menendez MD /es/ Sheila Small Wilkinson [facility] Signed: 12/25/2024 14:52 Receipt Acknowledged By: 01/12/2025 15:58 /es/ CLARA ORDONEZ LPN [facility] JUAN CARLOS MENENDEZ [facility] Dec 09, 2024 12:36 PM ADDENDUM: LOCAL TITLE: Addendum STANDARD TITLE: ADDENDUM DATE OF NOTE: DEC 09, 2024@12:36:46 ENTRY DATE: DEC 09, 2024@12:36:48 AUTHOR: AUDREY HOFFMAN EXP COSIGNER: URGENCY: STATUS: COMPLETED labs results in for your review. /es/ Audrey Hoffman MD [facility] Signed: 12/09/2024 12:37 Receipt Acknowledged By: 12/25/2024 13:07 /jonathan/ Sheila Small [facility] --- Original Document --- 12/04/24 PRIMARY CARE CLINIC PROGRESS NOTE PB: SUBJECTIVE: SHARIF BASS is a 34 y.o.MALE. Patient presents to the clinic today with the following acute concerns and/or chronic problems as noted below. DM, Type II: Patient's fasting glucose measurements have been ranging from 90-140 fairly consistently, but he was diagnosed with flu recently which resulted in an increase of his fasting glucose measurements of 200's all last week. His flu symptoms are resolved now. He denies any fever, chills, or abdominal pain. His most recent a1c was 8.1% which he also blames on the flu. His previous last three a1c's in reverse order was 7.1%, 7.0%, and 6.8%. Joint pain: Patient has chronic low grade pain in both knees which has a severity of 3/10 today. Liver Enzyme Elevation; Elevated triglycermides: Patients most recent liver enzymes were mildly elevated at ALT 80, AST 64. Patient has a history of drinking excessively, but quick all acoholic intake 3 years ago. Hypertriglyceridemia: Triglycerides were also elevated at 492. Patient denies abdominal pain. REVIEW OF SYSTEMS: GENERAL:Denies fever, chills, or recent weight loss HEENT: Denies recent visual changes, ear pain, or pressure, or dizziness. CV: Denies chest pain, heart palpitations, or lightheadedness. PULM: Denies hemoptysis, cough GI: Denies hematochezia, melena, or abdominal pain. : Denies hematuria MUSC: Denies any joint swelling, erythema, or increased heat. NEURO: Denies headaches, or dizziness. INTEG: Denies any new rash, or open wounds. Problem List 1) Type 2 diabetes mellitus 2) Osteoarthritis of knee 3) Chronic post-traumatic stress disorder 4) HLD - Hyperlipidemia 5) Chronic depression 6) Alcohol dependence 7) Chronic neck pain 8) Chronic back pain 9) Vitamin D Deficiency ([facility] [id number]) 10) Allergic Rhinitis ([facility] [id number]) Active Outpatient Medications (including Supplies): Active Outpatient Medications Status 1) CETIRIZINE HCL 10MG TAB TAKE ONE TABLET BY MOUTH ONCE A DAY ACTIVE Indication: FOR ALLERGY SYMPTOMS 2) GLIMEPIRIDE 4MG TAB TAKE TWO TABLETS BY MOUTH EVERY MORNING ACTIVE TAKE WITH BREAKFAST OR FIRST FOOD. Indication: FOR DIABETES 3) INSULIN SYRINGE 0.5ML 31G 8MM USE SYRINGE UNDER THE SKIN ACTIVE ONCE A DAY TO USE WITH INSULIN Indication: FOR DIABETES 4) INSULIN,GLARGINE,HUMAN 100 UNIT/ML INJ INJECT 10 UNITS UNDER ACTIVE (S) THE SKIN EVERY EVENING TO CONTROL BLOOD SUGAR. ADMINISTER AT SAME TIME EACH DAY DIRECTED. DISCARD ANY VIAL 28 DAYS AFTER OPENING. Allergies: Patient has answered NKA OBJECTIVE: Vital Signs Temperature: 97.2 F [36.2 C] (09/13/2024 11:20) Respiratory Rate: 17 (12/04/2024 13:02) Pulse Rate: 77 (12/04/2024 13:02) Blood Pressure: 115/71 (12/04/2024 13:02) HT: 68.0 in [172.7 cm] (06/09/2024 08:53) WT: 141.9 lb [64.36 kg] (12/04/2024 13:02) BMI: 21.6 94% (12/04/2024 13:02) Vital Signs per chart to date and reviewed by signee. PHYSICAL EXAM: Per nursings assessment: GENERAL:A&Ox3, pleasant, appears stated age HEENT: Head: NC. NECK: Supple, No LAD. HEART: RRR, no murmur, gallops, or rubs LUNGS: Good air movement throughout. CTA-B, No wheezes, rales, or rhonchi ABDOMEN:Normal BS. Soft, non-tender, non-distended. MUSC: No swelling SKIN: No erythema, rash, or open wounds. A/P: ASSESSMENT and PLAN DM, Type II: Glucose had increased for 7-10 days recently due to having the flu. I think the a1c of 8.1% is also related to the flu symptoms. I am not recommending any changes in his DM manaagement due to the recent flu. Flu symptoms have now resolved. I think his glucose will return to approximately the same range as before Flu. Continue glimepirine 8mg every a.m. Continue metformin 1000mg BID. Continue glargine insulin at 10 units once daily. Joint pain: Stable. No new medication changes. Liver Enzyme Elevation; Elevated triglycermides: Obtain further blood work today for evlauation of the liver enzymes. Consider obtaining a RUQ US. Hypertriglyceridemia: Start atorvastatin 20mg daily. Medications Reconciled. The labs obtained on 11/27/24 were reviewed with patient today. Any changes that were made based upon those lab results can be reviewed in my Assessment and Plan. Follow up: 6 months for fasting lab and a follow-up face to face visit after the lab has been obtained. /jonathan/ Sheila Small [facility] Signed: 12/04/2024 13:55 AUDREY HOFFMAN CB Dec 04, 2024 09:34 AM PRIMARY CARE PROGR ESS NOTE: LOCAL TITLE: PRIMARY CARE CLINIC PROGRESS NOTE PB STANDARD TITLE: PRIMARY CARE PROGRESS NOTE DATE OF NOTE: DEC 04, 2024@09:34 ENTRY DATE: DEC 04, 2024@09:34:34 AUTHOR: JUAN CARLOS MENENDEZ COSIGNER: URGENCY: STATUS: COMPLETED PRIMARY CARE CLINIC PROGRESS NOTE PB Has ADDENDA SUBJECTIVE: SHARIF BASS is a 34 y.o.MALE. Patient presents to the clinic today with the following acute concerns and/or chronic problems as noted below. DM, Type II: Patient's fasting glucose measurements have been ranging from 90-140 fairly consistently, but he was diagnosed with flu recently which resulted in an increase of his fasting glucose measurements of 200's all last week. His flu symptoms are resolved now. He denies any fever, chills, or abdominal pain. His most recent a1c was 8.1% which he also blames on the flu. His previous last three a1c's in reverse order was 7.1%, 7.0%, and 6.8%. Joint pain: Patient has chronic low grade pain in both knees which has a severity of 3/10 today. Liver Enzyme Elevation; Elevated triglycermides: Patients most recent liver enzymes were mildly elevated at ALT 80, AST 64. Patient has a history of drinking excessively, but quick all acoholic intake 3 years ago. Hypertriglyceridemia: Triglycerides were also elevated at 492. Patient denies abdominal pain. REVIEW OF SYSTEMS: GENERAL:Denies fever, chills, or recent weight loss HEENT: Denies recent visual changes, ear pain, or pressure, or dizziness. CV: Denies chest pain, heart palpitations, or lightheadedness. PULM: Denies hemoptysis, cough GI: Denies hematochezia, melena, or abdominal pain. : Denies hematuria MUSC: Denies any joint swelling, erythema, or increased heat. NEURO: Denies headaches, or dizziness. INTEG: Denies any new rash, or open wounds. Problem List 1) Type 2 diabetes mellitus 2) Osteoarthritis of knee 3) Chronic post-traumatic stress disorder 4) HLD - Hyperlipidemia 5) Chronic depression 6) Alcohol dependence 7) Chronic neck pain 8) Chronic back pain 9) Vitamin D Deficiency ([facility] [id number]) 10) Allergic Rhinitis ([facility] [id number]) Active Outpatient Medications (including Supplies): Active Outpatient Medications Status 1) CETIRIZINE HCL 10MG TAB TAKE ONE TABLET BY MOUTH ONCE A DAY ACTIVE Indication: FOR ALLERGY SYMPTOMS 2) GLIMEPIRIDE 4MG TAB TAKE TWO TABLETS BY MOUTH EVERY MORNING ACTIVE TAKE WITH BREAKFAST OR FIRST FOOD. Indication: FOR DIABETES 3) INSULIN SYRINGE 0.5ML 31G 8MM USE SYRINGE UNDER THE SKIN ACTIVE ONCE A DAY TO USE WITH INSULIN Indication: FOR DIABETES 4) INSULIN,GLARGINE,HUMAN 100 UNIT/ML INJ INJECT 10 UNITS UNDER ACTIVE (S) THE SKIN EVERY EVENING TO CONTROL BLOOD SUGAR. ADMINISTER AT SAME TIME EACH DAY DIRECTED. DISCARD ANY VIAL 28 DAYS AFTER OPENING. Allergies: Patient has answered NKA OBJECTIVE: Vital Signs Temperature: 97.2 F [36.2 C] (09/13/2024 11:20) Respiratory Rate: 17 (12/04/2024 13:02) Pulse Rate: 77 (12/04/2024 13:02) Blood Pressure: 115/71 (12/04/2024 13:02) HT: 68.0 in [172.7 cm] (06/09/2024 08:53) WT: 141.9 lb [64.36 kg] (12/04/2024 13:02) BMI: 21.6 94% (12/04/2024 13:02) Vital Signs per chart to date and reviewed by signee. PHYSICAL EXAM: Per nursings assessment: GENERAL:A&Ox3, pleasant, appears stated age HEENT: Head: NC. NECK: Supple, No LAD. HEART: RRR, no murmur, gallops, or rubs LUNGS: Good air movement throughout. CTA-B, No wheezes, rales, or rhonchi ABDOMEN:Normal BS. Soft, non-tender, non-distended. MUSC: No swelling SKIN: No erythema, rash, or open wounds. A/P: ASSESSMENT and PLAN DM, Type II: Glucose had increased for 7-10 days recently due to having the flu. I think the a1c of 8.1% is also related to the flu symptoms. I am not recommending any changes in his DM manaagement due to the recent flu. Flu symptoms have now resolved. I think his glucose will return to approximately the same range as before Flu. Continue glimepirine 8mg every a.m. Continue metformin 1000mg BID. Continue glargine insulin at 10 units once daily. Joint pain: Stable. No new medication changes. Liver Enzyme Elevation; Elevated triglycermides: Obtain further blood work today for evlauation of the liver enzymes. Consider obtaining a RUQ US. Hypertriglyceridemia: Start atorvastatin 20mg daily. Medications Reconciled. The labs obtained on 11/27/24 were reviewed with patient today. Any changes that were made based upon those lab results can be reviewed in my Assessment and Plan. Follow up: 6 months for fasting lab and a follow-up face to face visit after the lab has been obtained. /es/ Sheila Smallhing [facility] Signed: 12/04/2024 13:55 12/09/2024 ADDENDUM STATUS: COMPLETED labs results in for your review. /es/ Audrey Hoffman MD [facility] Signed: 12/09/2024 12:37 Receipt Acknowledged By: * AWAITING SIGNATURE * JUAN CARLOS MENENDEZ [facility]
--- OUTSIDE RECORDS SUMMARY | 2025-05-29 10:16 | XMS_ITS ---
Author Name [facility] [place] Organization [facility] [place] Address [address] [place] [address] Care Team Providers Care Training Program Manager Name Role Phone LIMA ROBERTS Primary Care [...] [place] PREFERRED PROVIDER ORGANIZAT ION (PPO) [facility], Oct 09, 2021 [id number] [phone] SUNDAY BASS RK PATIENT [employer] [place] PREFERRED PROVIDER ORGANIZAT ION (PPO) [facility] , Oct 09, 2021 [id number] [phone] SUNDAY BASS RK PATIENT [employer] ([id number])RX PRESCRIPT ION [facility], Oct 09, 2021 [id number] [phone] SUNDAY BASS RK PATIENT [facility] CE ORGANIZAT ION ALLEG IANCE BENEF IT P Oct 29, 2024 [id number] [phone] SHARIF BASS PATIENT [employer] [facility] CE ORGANIZAT ION ALLEG IANCE BENEF IT P Oct 29, 2024 [id number] [phone] SHELIA SHARIF PATIENT [facility]GAN[facility] ION TPA ALLEG HEATHER BENE Oct 29, 2024 [id number] SUNDAY BASS RK PATIENT [employer] [facility] [id number] PRESCRIPT ION 6MEDI [place] Oct 29, 2024 6MEDICA [id number] SUNDAY BASS PATIENT [facility] MENTAL HEALTH MEDIC A CARLIN PREMI ER Oct 29, 2024 [id number] [phone] SUNDAY BASS RK PATIENT [employer]ER[employer] RX PRESCRIPT ION RX PLAN Oct 29, 2022 BCBSIL [id number] [phone] SUNDAY BASS PATIENT Selected Encounter This section includes the information on record at [place] for the Encounter. Date/Time Encounter Type Encounter Description Reason Pro vider Source May 29, 2025 03:16 PM Outpatient Encounter ADMIN PAT ACTIVTIES (MASNONCT) IHE Encounter Template Text not used by [place] Plan of Treatment: Future Appointments (+ 6 months) and Future Tests (+/- 45 days) The Plan of Treatment section includes future care activities for the patient from all [place] treatmentfacilities. This section includes future appointments and future orders which are active, pending or scheduled. Future Appointments This section includes appointments that were scheduled to occur 6 months from the date of the Encounter, up to a maximum of 20 appointments. The data comes from all [place] treatment facilities. Appointment Date/Time Appointment Type Appointme nt Facility Name Jun 01, 2025 03:00 PM AMBULATORY - MEDICINE [facility] Jun 15, 2025 09:00 AM AMBULATORY - MEDICINE [facility] Jun 15, 2025 03:00 PM AMBULATORY [facility] Jun 30, 2025 02:00 PM AMBULATORY - MEDICINE [facility] Jul 13, 2025 03:00 PM AMBULATORY - MEDICINE [facility] Jul 27, 2025 03:00 PM AMBULATORY [facility] Active, Pending, and Scheduled Orders This section includes a listing of several types of active, pending, and scheduled orders, including clinic medications orders, diagnostic test orders, procedure orders and consult orders; where the start date of the order is 45 days before the date of the Encounter or 45 days after the date of theEncounter. The data comes from all [place] treatment facilities. Test Date/Time Test Type Test Details Facility Name Jun 08, 2025 12:00 AM Laboratory - Chemistry Order [id number] BLOOD [facility] Jun 08, 2025 12:00 AM Laboratory - Chemistry Order CHOLESTEROL PANEL (PB) GREEN LI/HEP BLD/PLAS PLASMA [facility] Jun 08, 2025 12:00 AM Laboratory - Chemistry Order COMPREHENSIVE METABOLIC PANEL GREEN LI/HEP BLD/PLAS PLASMA [facility] Jun 08, 2025 12:00 AM Laboratory - Chemistry Order CBC BLOOD [facility] Advance Directives: All historical and current Section Date Range: From patient's date of to the date document was created. This section includes ALL of a patient's completed or amended [place] Advance and Rescinded Directives. The entries below indicate that a directive exists for the patient, but an actual copy is not included with this document. The data comes from all [place] facilities. Date Advance Directives Provider Source Aug 06, 2015 ADVANCE DIRECTIVE DISCUSSION FLORENCIO EVANS N [facility] Encounter Notes: All associated encounter notes This section contains the clinical notes associated to the Encounter. Date/Time Encounter Note(s) Provider Source May 29, 2025 03:18 PM ADMINISTRATIVE NOT E: LOCAL TITLE: ADMINISTRATIVE NOTE PB STANDARD TITLE: ADMINISTRATIVE NOTE DATE OF NOTE: MAY 29, 2025@15:18 ENTRY DATE: MAY 29, 2025@15:18:41 AUTHOR: YG HERNANDEZ EXP COSIGNER: URGENCY: STATUS: COMPLETED Attempted to call reminder for PB-JAKE TATTOO TECHNICIAN IND TURQ appointment on 06/01/2025 @15:00PM. Spoke to via phone, voiced understanding and confirmed he would be in attendance of stated appointment. /jonathan/ YG HERNANDEZ [facility] Signed: 05/29/2025 15:21 YG HERNANDEZ [facility] May 29, 2025 03:16 PM ADMINISTRATIVE NOT E: LOCAL TITLE: ADMINISTRATIVE NOTE PB STANDARD TITLE: ADMINISTRATIVE NOTE DATE OF NOTE: MAY 29, 2025@15:16 ENTRY DATE: MAY 29, 2025@15:16:34 AUTHOR: YG HERNANDEZ EXP COSIGNER: URGENCY: STATUS: COMPLETED Attempted to contact via phone to schedule appointment order for PB-JAKE PACT ECHO PCP with PID of 06/02/2025. Spoke to via phone, confirmed appointment request was a duplicate as he is already scheduled on 06/15/2025 @09:00. Call attempt documented and appointment request dispositioned per veterans request. /jonathan/ YG HERNANDEZ [facility] Signed: 05/29/2025 15:18 YG HERNANDEZ [facility]
--- OUTSIDE RECORDS SUMMARY | 2025-06-01 10:00 | XMS_ITS | Encounter Summary ---
Author Name [facility] [place] [facility] [place] [facility] [place] Address [address] [place] [address] Care Team Providers Care Concrete Swimming Pool Installer Name Role Phone LIMA ROBERTS Primary Care [...] [place] PREFERRED PROVIDER ORGANIZAT ION (PPO) [facility], SOUOct 09, 2021 [id number] [phone] SUNDAY BASS RK PATIENT [employer] [place] PREFERRED PROVIDER ORGANIZAT ION (PPO) [facility], SOUOct 09, 2021 [id number] SUNDAY BASS RK PATIENT [employer] ([id number])RX PRESCRIPT ION [facility], SOUT Oct 09, 2021 [id number] SUNADY BASS RK PATIENT [facility] ORGANIZAT ION ALLEG IANCE BENEF IT P Oct 29, 2024 [id number] [phone] SHARIF BASS PATIENT [employer] [facility] CE ORGANIZAT ION ALLEG IANCE BENEF IT P Oct 29, 2024 [id number] SHARIF BASS PATIENT [facility] CE ORGANIZAT ION TPA ALLEG HEATHER BENE Oct 29, 2024 [id number] [phone] SUNDAY BASS RK PATIENT [employer] [facility] RX [id number] PRESCRIPT ION 6MEDI [place] Oct 29, 2024 6MEDICA [id number] SUNDAY BASS PATIENT [facility] MENT[facility] HE[facility] MEDIC A LOVELL PREMI ER Oct 29, 2024 [id number] [phone] SUNDAY BASS RK PATIENT [employer] CS RX PRESCRIPT ION RX PLAN Oct 29, 2022 [employer] [id number] [phone] SUNDAY BASS RK PATIENT Selected Encounter This section includes the information on record at [place] for the Encounter. Date/Time Encounter Type Encounter Description Reason Provider Source Jun 01, 2025 03:00 PM PSYTX W PT 60 MINUTES [facility] - IND ICD-10-CM F33.1 Major depressive disorder, recurrent, moderate LILLI,LEO Santos I[facility] Encounter Template Text not used by [place] Assessments - Encounter Diagnoses This section includes the primary and secondary diagnoses documented for the Encounter. Date/Time Primary/Secondary Diagnosis Diagnosis Name Provider Source Jun 01, 2025 11:57 PM PRIMARY Major depressive disorder, recurrent, moderate LILLIKEITH CHRISTENSEN [facility] Plan of Treatment: Future Appointments (+ 6 [...] Appointment Type Appointme nt Facility Name Jun 15, 2025 09:00 AM AMBULATORY - MEDICINE [facility] Jun 15, 2025 03:00 PM AMBULATORY - MEDICINE [facility] Jun 30, 2025 02:00 PM AMBULATORY - MEDICINE [facility] Jul 13, 2025 03:00 PM AMBULATORY - MEDICINE [facility] Jul 27, 2025 03:00 PM AMBULATORY - MEDICINE [facility] Active, Pending, and Scheduled Orders This section includes a listing of several types of active, pending, and scheduled orders, including clinic medications orders, diagnostic test orders, procedure orders and consult orders; where the start date of the order is 45 days before the date of the Encounter or 45 days after the date of theEncounter. The data comes from all [place] treatment facilities. Test Date/Time Test Type Test Details Facility Name Jun 08, 2025 12:00 AM Laboratory - Chemistry Order CBC BLOOD [facility] Jun 08, 2025 12:00 AM Laboratory - Chemistry Order [id number] BLOOD [facility] Jun 08, 2025 12:00 AM Laboratory - Chemistry Order CHOLESTEROL PANEL (PB) GREEN LI/HEP BLD/PLAS PLASMA [facility] Jun 08, 2025 12:00 AM Laboratory - Chemistry Order COMPREHENSIVE METABOLIC PANEL GREEN LI/HEP BLD/PLAS PLASMA [facility] Social History: Smoking Status (Most current) and [...] 09, 2024 09:00 AM VA-TOBACCO FORMER USER [facility] Tobacco Use History This section includes a history of the smoking, or tobacco-related health factors, that were collected on or before the date of the Encounter. The data comes from the [place] facility where the Encounter took place. 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 [facility] Jun 05, 2022 10:30 AM VA-TOBACCO USE MED NO [facility] Jun 05, 2022 10:30 AM VA-TOBACCO USE WI 30 MIN OF WAKE UP [facility] Jun 05, 2022 10:30 AM VA-TOBACCO USER EVERY DAY [facility] May 19, 2021 08:30 AM VA-TOBACCO NEVER USED [facility] Jun 02, 2019 09:31 AM VA-TOBACCO DOESNT USE WI 30 MIN WAKEUP [facility] Jun 02, 2019 09:31 AM VA-TOBACCO USE 5 TO 15 YEARS [facility] Jun 02, 2019 09:31 AM VA-TOBACCO USE ADVICE [facility] Jun 02, 2019 09:31 AM VA-TOBACCO USE FLIGHT COMMUNICATIONS 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 [facility] Jun 02, 2019 09:31 AM VA-TOBACCO USE MED NO [facility] Jun 02, 2019 09:31 AM VA-TOBACCO USER EVERY DAY [facility] Jul 15, 2018 08:29 AM CURRENT TOBACCO USER [facility] Jul 15, 2018 08:29 AM CURRENT TOBACCO US ER (NOT READY TO QUIT) [facility] Jul 15, 2018 08:29 AM TOBACCO CESSATION REFERRAL DECLI DESTIN [facility] Jul 15, 2018 08:29 AM TOBACCO MEDS OFFERED BUT DECLINE D [facility] Jul 15, 2018 08:29 AM TOBACCO USER OFFERED MEDS [facility] Dec 05, 2017 01:07 PM CURRENT TOBACCO USER [facility] Dec 05, 2017 01:07 PM CURRENT TOBACCO US ER (NOT READY TO QUIT) [facility] Dec 05, 2017 01:07 PM TOBACCO CESSATION REFERRAL DECLI DESTIN [facility] Dec 05, 2017 01:07 PM TOBACCO MEDS OFFERED BUT DECLINE D [facility] Dec 05, 2017 01:07 PM TOBACCO USER OFFERED MEDS [facility] Advance Directives: All historical and current Section Date Range: From patient's date of to the date document was created. This section includes ALL of a patient's completed or amended [place] Advance and Rescinded Directives. The entries below indicate that a directive exists for the patient, but an actual copy is not included with this document. The data comes from all [place] facilities. Date Advance Directives Provider Source Aug 06, 2015 ADVANCE DIRECTIVE DISCUSSION FLORENCIO EVANS [facility]
--- OUTSIDE RECORDS SUMMARY | 2025-06-03 11:38 | XMS_ITS | Continuity of Care Document ---
Author Name [facility] Organization [facility] Care Team Providers Care Hazardous Waste Management Specialist Name Role Phone [facility] Unavailable Unavailable Problems Combined list of problems from Department of Defense and Veterans Affairs facilities. It does not include entries that were removed or entered in error. Problem Status Onset Date Problem Type Date of Resolution Comments Source visit for: preoperative exam Inactive Condition DoD TINNITUS Active Condition DoD SENSORINEURAL HEARING LOSS Active Condition DoD GASTROENTERITIS Active Condition DoD visit for: ears/hearing exam following [facility] hearing screening Active Condition DoD NEOPLASM - SOFT TISSUE HAND LEFT Active Condition DoD Patient Education - Injury Prevention Active Condition DoD visit for: ears / hearing exam Active Condition DoD Aftercare Following Surgery Active Condition DoD DUPUYTREN'S CONTRACTURE Active Condition DoD CUBITAL TUNNEL SYNDROME Active Condition DoD lump in / on the skin Active Condition DoD nausea with vomiting Inactive Condition DoD CARPAL TUNNEL SYNDROME Active Condition DoD MUSCLE SPASM Inactive Condition DoD CERVICAL RADICULOPATHY C8 (C7-T1) Active Condition DoD joint stiffness of the wrist Active Condition DoD Aftercare Orthopedic Active Condition DoD Aftercare Following Surgery Of Musculoskeletal System Inactive Condition DoD CLOSED FRACTURE OF SCAPHOID BONE LEFT MIDDLE Active Condition DoD CLOSED FRACTURE OF WRIST (COLLES') Active Condition DoD joint stiffness of the knee Active Condition DoD muscle weakness Active Condition DoD OCCUPATIONAL PROBLEM Active Condition DoD KNEE SPRAIN CRUCIATE LIGAMENT ANTERIOR Active Condition DoD joint pain, localized in the knee Active Condition DoD THIGH STRAIN Active Condition DoD ALCOHOL ABUSE Active Condition DoD tobacco use Active Condition DoD RELATIONAL PROBLEMS Inactive Condition D oD ADJUSTMENT DISORDER WITH DEPRESSED MOOD Active Condition DoD ADJUSTMENT DISORDER Active Condition Do D Suicidal Ideation Active Condition DoD UPPER RESPIRATORY INFECTION Inactive Condition DoD BEE VENOM ANAPHYLAXIS Inactive Condition DoD VISUAL FIELD DEFECT Active Condition Do D REFRACTIVE ERROR - HYPERMETROPIA Active Condition DoD visit for: services physical Active Condition DoD TORTICOLLIS Active Condition DoD visit: ears/hearing exam for hearing conservation, treatment Active Condition DoD visit for: issue medical certificate Active Condition DoD visit for: occupational health / fitness exam Active Condition DoD Other Physical Therapy Active Condition DoD CERVICAL RADICULOPATHY C5 Active Condition DoD NORMAL EXAMINATION Active Condition DoD Vaccines Prophylactic Need Against Influenza Inactive Condition DoD SHOULDER SPRAIN RIGHT Active Condition DoD PATELLOFEMORAL SYNDROME Inactive Condition [facility] Alcohol dependence Active Condition [facility] Allergic Rhinitis (SCT 59247314) Active Condition [facility] Arthralgia of the ankle and/or foot Active Condition [facility] Chronic back pain Active Condition [place] [facility] Chronic depression Active Condition [place] [facility] Chronic neck pain Active Condition [place] [facility] Chronic post-traumatic stress disorder Active Condition [place] [facility] Dupuytren's Contracture Active Condition Jul 18, 2012 Entered By: COLT LOJA Comment: left hand [facility] HLD - Hyperlipidemia Active Condition [facility] Inadequate housing (SNOMED CT 148356254) Active Condition [facility] Major depressive disorder, single episode Active Condition [facility] Osteoarthritis of knee Active Condition [place] [facility] Posttraumatic stress disorder (SNOMED CT 77111128) Active Condition [facility] Type 2 diabetes mellitus Active Condition [place] [facility] Vitamin D Deficiency (SCT 8798919) Active Condition [place] [facility] Diagnosis: ICD-10-CM F33.1 Major depressive disorder, recurrent, moderate Active Diagnosis [facility] Diagnosis: ICD-10-CM E11.9 Type 2 diabetes mellitus without complications Active Diagnosis [facility] Diagnosis: ICD-10-CM J09.X9 Flu due to ident novel influenza A virus w oth manifest Active Diagnosis [facility] Diagnosis: ICD-10-CM Z23 Encounter for immunization Active Diagnosis [facility] Diagnosis: ICD-10-CM F43.12 Post-traumatic stress disorder, chronic Active Diagnosis [facility] Diagnosis: ICD-10-CM H61.21 Impacted cerumen, right ear Active Diagnosis [place] [facility] Diagnosis: ICD-10-CM Z13.5 Encounter for screening for eye and ear disorders Active Diagnosis [facility] Diagnosis: ICD-10-CM M25.512 Pain in left shoulder Active Diagnosis [facility] Medications Combined list of outpatient medications from Department of Defense and [facility] Affairs facilities.Medications provided include 1) outpatient medications from the last 15 months, and 2) patient-reported medications. Medication Details Route Status Patient Instructions Prescription Expires Prescription Number Last Dispense Date Ordering Provider Order Date Order Qty Source ATORVASTATI N CA 40MG TAB TAKE ONE-HALF TABLET BY MOUTH EVERY EVENING FOR HIGH CHOLESTE ROL ORAL ACTIVE 12/05/2025 [id number] ALONA MENENDEZ LLIAM T 2024 45 [facility] CETIRIZINE (U/D) 10 MG ORAL TAB TAKE ONE TABLET BY MOUTH ONCE A DAY FOR ALLERGY SYMPTOMS 06/05/2024 [id number] 4 [facility] 2023 90 [facility] Divisio n CETIRIZINE HCL 10MG TAB TAKE ONE TABLET BY MOUTH ONCE A DAY FOR ALLERGY SYMPTOMS ORAL ACTIVE 06/17/2025 [id number] 5 [facility] 2023 90 [facility] CETIRIZINE HCL 10MG TAB TAKE ONE TABLET BY MOUTH ONCE A DAY FOR ALLERGY SYMPTOMS ORAL DISCONT INUED 06/05/2024 [id number] [facility] [place] 2022 90 [facility] 4 MG ORAL TAB TAKE TWO TABLETS BY MOUTH EVERY MORNING FOR DIABETES TAKE WITH BREAKFAS T OR FIRST FOOD. 06/05/2024 [id number] 4 [facility] [address] [place] [address] Divisio n GLIMEPIRIDE 4MG TAB TAKE TWO TABLETS BY MOUTH EVERY MORNING FOR DIABETES TAKE WITH BREAKFAS T OR FIRST FOOD. ORAL ACTIVE 06/17/2025 [id number] 5 [facility] [place] 2023 180 [facility] GLIMEPIRIDE 4MG TAB TAKE TWO TABLETS BY MOUTH EVERY MORNING FOR DIABETES TAKE WITH BREAKFAS T OR FIRST FOOD. ORAL DISCONT INUED 06/05/2024 [id number] [facility] [place] 2022 180 [facility] INSULIN,GLA RGINE,HUMAN 100 UNT/ML INJ INJECT 10 UNITS UNDER THE SKIN EVERY EVENING TO CONTROL BLOOD SUGAR. ADMINIST ER AT SAME TIME EACH DAY DIRECTED . DISCARD ANY VIAL 28 DAYS AFTER OPENING. SUBCUT ANEOUS ACTIVE 09/30/2025 [id number] 5 JARED NAVAS W 2023 3 [facility] INSULIN,GLA RGINE-YFGN 100UNIT/ML INJ INJECT 10 UNITS UNDER THE SKIN EVERY EVENING TO CONTROL BLOOD SUGAR. ADMINIST ER AT SAME TIME EACH DAY DIRECTED . DISCARD ANY VIAL 28 DAYS AFTER OPENING. SUBCUT ANEOUS DISCONT INUED 09/14/2024 [id number] 4 [place] ROBERTS 2022 3 [facility] METFORMIN HCL 1000MG TAB TAKE ONE TABLET BY MOUTH TWICE A DAY WITH MEALS FOR BLOOD SUGAR CONTROL. TAKE WITH FOOD. AVOID ALCOHOL. DISCONTI NUE BEFORE GETTING XRAY DYE. ORAL ACTIVE 12/05/2025 [id number] 5 ALONA MENENDEZ T 2024 180 [facility] METFORMIN HCL 1000MG TAB TAKE ONE TABLET BY MOUTH TWICE A DAY WITH MEALS FOR BLOOD SUGAR CONTROL. TAKE WITH FOOD. AVOID ALCOHOL. DISCONTI NUE BEFORE GETTING XRAY DYE. ORAL 06/27/2024 [id number] 4 [facility] 180 [facility] Metformin Hydrochlori de Tablet Extended Release 1,000 mg Oral TAKE ONE TABLET BY MOUTH TWICE A DAY WITH MEALS FOR BLOOD SUGAR CONTROL. TAKE WITH FOOD. AVOID ALCOHOL. DISCONTI NUE BEFORE GETTING XRAY DYE. 06/27/2024 [id number] 4 [facility] 2023 180 [facility] Divisio n Allergies, Adverse Reactions, Alerts Combined list of allergies from Department of Defense and Veterans Affairs facilities. It does not include entries that were removed or entered in error. Substance Category Reaction Severity Reaction type Status Date Reported Comments Source No Known Allergies Drug allergy (disorder) active 06/16/2008 [facility] Immunizations Combined list of available immunizations from the Department of Defense and Veterans Affairs facilities. Immunization Series Date Given Administered By Site Reaction Lot Number CVX Code Drug Ripsaw Grader Status Comments Source INFLUENZA, SPLIT VIRUS, TRIVALENT, PF 2023 CHARITY DENISE LEFT DELTO ID [id number] 140 complet ed ADMINISTE RED AT [facility] DIVISIO N INFLUENZA, INJECTABLE, QUADRIVALENT, PRESERVATIVE FREE 2019 150 complet ed [facility] TDAP 2019 115 complet [facility] TDAP 1 2014 115 complet ed HISTORICA L INFORMATI ON - FROM OTHER [facility], [facility] DIVISIO N influenza virus vaccine, live, attenuated, for intranasal use 0 2011 [id number] [employer] (MED) complet ed influenza virus vaccine, live, attenuate d, for intranasa l use DoD influenza virus vaccine, live, attenuated, for intranasal use 0 2010 [id number] 111 [employer] (MED) complet ed influenza virus vaccine, live, attenuate d, for intranasa l use DoD typhoid vaccine, parenteral, other than acetone-kille d, dried 1 2009 UNK 41 Wysummer-Ayerst (WAL) complet ed typhoid vaccine, parentera l, other than acetone-k illed, dried DoD influenza virus vaccine, live, attenuated, for intranasal use 0 2009 UNK 111 [employer] (MED) complet ed influenza virus vaccine, live, attenuate d, for intranasa l use DoD anthrax vaccine 1 2008 [id number] [employer] [place] ([facility]) complet ed anthrax vaccine DoD vaccinia (smallpox) vaccine 0 2008 [id number] 75 (KATIE) complet ed vaccinia (smallpox ) vaccine DoD Novel influenza-H1N 1-09, injectable 0 2008 [id number] 127 (AG) complet ed Novel influenza -[id number], injectabl e DoD influenza virus vaccine, live, attenuated, for intranasal use 0 2008 [id number] 111 MedImmune, Inc. (MED) complet ed influenza virus vaccine, live, attenuate d, for intranasa l use DoD typhoid Vi capsular polysaccharid e vaccine 1 2008 UNK 101 Wyeth-Ayerst (WAL) complet ed typhoid Vi capsular polysacch aride vaccine DoD hepatitis A and hepatitis B vaccine 3 2008 UNK 104 SmithKline (SKB) complet ed hepatitis A and hepatitis B vaccine DoD influenza virus vaccine, split virus (incl. purified surface antigen)-reti red CODE 0 2007 UNK 15 Unknown (UNK) comple t ed influenza virus vaccine, split virus (incl. purified surface antigen)- retired CODE DoD tetanus and diphtheria toxoids, adsorbed, preservative free, for adult use (2 Lf of tetanus toxoid and 2 Lf of diphtheria toxoid) 0 2006 [id number] 09 Sanofi Pasteur ([facility]) complet ed tetanus and diphtheri a toxoids, adsorbed, preservat letitia free, for adult use (2 Lf of tetanus toxoid and 2 Lf of diphtheri a toxoid) DoD poliovirus vaccine, inactivated 0 2006 [id number] 10 Sanofi Pasteur ([facility]) complet ed polioviru s vaccine, inactivat ed DoD yellow fever vaccine 0 2006 [id number] Aventis Behring L.L.[employer] (AVB) complet ed yellow fever vaccine DoD hepatitis A and hepatitis B vaccine 2 2006 [id number] 104 SmithKline (SKB) complet ed hepatitis A and hepatitis B vaccine DoD measles, mumps and rubella virus vaccine 0 2006 [id number] Merck (MSD) complet ed measles, mumps and rubella virus vaccine DoD pneumococcal polysaccharid e vaccine, 23 valent 0 2006 [id number] 33 Merck (MSD) complet ed pneumococ jayden polysacch aride vaccine, 23 valent DoD hepatitis A and hepatitis B vaccine 1 2006 [id number] 104 SmithKline (SKB) complet ed hepatitis A and hepatitis B vaccine DoD influenza virus vaccine, live, attenuated, for intranasal use 0 2006 [id number] 111 Bee [employer]ilient, Inc. (MED) complet ed influenza virus vaccine, live, attenuate d, for intranasa l use DoD meningococcal polysaccharid e (groups A, C, Y and W-135) diphtheria toxoid conjugate vaccine (MCV4P) 0 2006 [id number] 114 Aventis Behring L.L.C (AVB) complet ed meningoco ccal polysacch aride (groups A, C, Y and W-135) diphtheri a toxoid conjugate vaccine (MCV4P) DoD measles, mumps and rubella virus vaccine 0 2006 [id number] 03 Merck (MSD) complet ed measles, mumps and rubella virus vaccine DoD meningococcal polysaccharid e vaccine (MPSV4) 0 2006 [id number] 32 Aventis Behring L.L.C (AVB) complet ed meningoco ccal polysacch aride vaccine (MPSV4) DoD pneumococcal polysaccharid e vaccine, 23 valent 0 2006 [id number] 33 Aventis Behring L.L.C (AVB) complet ed pneumococ jayden polysacch aride vaccine, 23 valent DoD hepatitis A and hepatitis B vaccine 1 2006 [id number] 0 [employer]ially CallenderKline (SKB) complet ed hepatitis A and hepatitis B vaccine DoD influenza virus vaccine, live, attenuated, for intranasal use 0 2006 [id number] 111 Bee [employer]ilient, [employer]. (MED) complet ed influenza virus vaccine, live, attenuate d, for intranasa l use DoD HEP B, UNSPECIFIED FORMULATION 3 1998 45 complet ed HISTORICA L INFORMATI ON - [facility] HEP B, UNSPECIFIED FORMULATION 2 1997 45 complet ed HISTORICA L INFORMATI ON - FROM OTHER [facility] N HEP B, UNSPECIFIED FORMULATION 1 1997 45 complet ed HISTORICA L INFORMATI ON - [facility] DTP 5 1993 01 complet ed HISTORICA L INFORMATI ON - FROM OTHER [facility] TRIVALENT OPV 4 1993 02 complet ed HISTORICA L INFORMATI ON - [facility] MMR 2 1993 03 complet ed HISTORICA L INFORMATI ON - [facility] HIB (PRP-T) 1991 48 complet ed HISTORICA L INFORMATI ON - [facility] HIB (PRP-T) 1 1989 48 complet ed HISTORICA L INFORMATI ON - FROM OTHER [facility] DIVISIO N DTP 4 1989 01 complet ed HISTORICA L INFORMATI ON - FROM OTHER REGISTRY, [facility] DIVISIO N MMR 1 1989 03 complet ed HISTORICA L INFORMATI ON - FROM OTHER [facility] TRIVALENT OPV 3 1989 02 complet ed HISTORICA L INFORMATI ON - FROM OTHER [facility]IST[facility], [facility] DTP 3 1988 01 complet ed HISTORICA L INFORMATI ON - FROM OTHER [facility]ISTRY, [facility] DTP 2 1988 01 complet ed HISTORICA L INFORMATI ON - FROM OTHER REGISTRY, [facility] DIV[facility]IO N TRIVALENT OPV 2 1988 02 complet ed HISTORICA L INFORMATI ON - FROM OTHER [facility]ISTRY, [facility] DTP 1 1988 01 complet ed HISTORICA L INFORMATI ON - FROM OTHER REGISTRY, [facility] N TRIVALENT OPV 1 1988 02 complet ed HISTORICA L INFORMATI ON - FROM OTHER REGISTRY, [facility] DIVISIO N Results Combined list of recent chemistry, hematology and other laboratory results from Department of Defense and Veterans Affairs, ranging from 15 months to all on record, depending upon the facility. Order Name Results Value Reference Range Date Interpretation Specimen Comments Source ACTIN (SMOOTHMU SCLE) ANTIBODY IGG SMOOTH MUSCLE AB [TITER] IN SERUM negative {titer} <20.1 - 20.1 03/24 Specimen Type: SERUM No comment entered. Ordering Provider: ASHLEE MENENDEZ Report Released Date/Time: Dec 26, 2024 01:32 PM Reporting Lab: [facility] [address] [facility] [address] Performing Lab: [facility] [address] [facility] [address] [facility] ALKALINE PHOSPHATA SE ALKALINE PHOSPHATAS E [ENZYMATIC ACTIVITY/V OLUME] IN SERUM OR PLASMA 91 U/L 40 - 150 03/24 Specimen Type: PLASMA No comment entered. Ordering Provider: ASHLEE MENENDEZ Report Released Date/Time: Dec 25, 2024 02:55 PM Reporting Lab: [place] [facility] [address] [place] [address] Performing Lab: [place] [facility] [address] [place] [address] [facility] AST/SGOT ASPARTATE AMINOTRANS FERASE [ENZYMATIC ACTIVITY/V OLUME] IN SERUM OR PLASMA 75 U/L 5 - 34 03/24 H Specimen Type: PLASMA No comment entered. Ordering Provider: ASHLEE MENENDEZ Report Released Date/Time: Dec 25, 2024 02:55 PM Reporting Lab: [place] [facility] [address] [place] [address] Performing Lab: [place] [facility] [address] [place] [address] [facility] ALT/SGPT ALANINE AMINOTRANS FERASE [ENZYMATIC ACTIVITY/V OLUME] IN SERUM OR PLASMA 112 U/L 8 - 40 03/24 H Specimen Type: PLASMA No comment entered. Ordering Provider: ASHLEE MENENDEZ Report Released Date/Time: Dec 25, 2024 02:55 PM Reporting Lab: [place] [facility] [address] [place] [address] Performing Lab: [place] [facility] [address] [place] [address] [facility] ALPHA-FET OPROTEIN( STL-PB) ALPHA-FETO PROTEIN(ST L-PB) 2.74 ng/mL 1 - 8.78 12/04 Specimen Type: PLASMA No comment entered. Ordering Provider: ASHLEE MENENDEZ Report Released Date/Time: Dec 04, 2024 01:31 PM Reporting Lab: [facility] [address] [facility] [address] Performing Lab: [facility] [address] [facility] [address] [facility] ANTI-NUCL EAR ANTIBODY (STL-PB) NUCLEAR AB [PRESENCE] IN SERUM NEGATIVE 12/04 Specimen Type: SERUM No comment entered. Ordering Provider: ASHLEE MENENDEZ Report Released Date/Time: Dec 04, 2024 01:31 PM Reporting Lab: [facility] [address] [facility] [address] Performing Lab: [facility] [address] [facility] [address] [facility] ACTIN (SMOOTHMU SCLE) ANTIBODY IGG SMOOTH MUSCLE AB [TITER] IN SERUM POSITIVE {titer} <20.1 - 20.1 12/04 Specimen Type: SERUM No comment entered. Ordering Provider: ASHLEE MENENDEZ Report Released Date/Time: Dec 04, 2024 01:31 PM Reporting Lab: [facility] [address] [place] [phone] Performing Lab: [address] [address] [facility] SMA-TITER SMOOTH MUSCLE AB [TITER] IN SERUM 40 {titer} 12/04 Specimen Type: SERUM No comment entered. Ordering Provider: ASHLEE MENENDEZ Report Released Date/Time: Dec 04, 2024 01:31 PM Reporting Lab: [facility] [address] [place] [phone] Performing Lab: [address] [address] [facility] ANTI-LUPILLO CHONDRIAL AB (STL-PB) MITOCHONDR IA AB [TITER] IN SERUM BY IMMUNOFLUO RESCENCE NEGATIVE {titer} 12/04 Specimen Type: SERUM No comment entered. Ordering Provider: ASHLEE MENENDEZ Report Released Date/Time: Dec 04, 2024 01:31 PM Reporting Lab: [facility] [address] [place] [phone] Performing Lab: [facility] [address] [place] [phone] [facility] FERRITIN FERRITIN [MASS/VOLU ME] IN SERUM OR PLASMA 449 ng/mL 22 - 275 12/04 H Specimen Type: SERUM No comment entered. Ordering Provider: ASHLEE MENENDEZ Report Released Date/Time: Dec 04, 2024 01:31 PM Reporting Lab: [place] [facility] [address] [place] [address] Performing Lab: [place] [facility] [address] [place] [address] [facility] Vital Signs Combined list of inpatient and outpatient Vital Signs from Department of Defense and Veterans Affairs, ranging from 12 months to all on record, depending upon the facility. Vital Sign Value Date Comments Source SYSTOLIC BLOOD PRESSURE 115 12/04/2024 13:02:00 [place] [facility] DIASTOLIC BLOOD PRESSURE 71 12/04/2024 13:02:00 [place] [facility] PULSE OXIMETRY 94 12/04/2024 13:02:00 [facility] WEIGHT 141.9 12/04/2024 13:02:00 [place] [facility] BMI 22 kg/m2 12/04/2024 13:02:00 [place] [facility] PAIN 3 12/04/2024 13:02:00 [place] [facility] PULSE 77 12/04/2024 13:02:00 [facility] RESPIRATION 17 12/04/2024 13:02:00 [facility] SYSTOLIC BLOOD PRESSURE 122 09/13/2024 11:20:00 [place] [facility] DIASTOLIC BLOOD PRESSURE 77 09/13/2024 11:20:00 [place] [facility] PULSE OXIMETRY 97 09/13/2024 11:20:00 [place] [facility] WEIGHT 150.0 09/13/2024 11:20:00 [place] [facility] BMI 23 kg/m2 09/13/2024 11:20:00 [place] [facility] PAIN 0 09/13/2024 11:20:00 [place] [facility] TEMPERATURE 97.2 09/13/2024 11:20:00 [place] [facility] PULSE 74 09/13/2024 11:20:00 [place] [facility] WEIGHT 148.8 06/09/2024 08:53:00 [place] [facility] BMI 23 kg/m2 06/09/2024 08:53:00 [place] [facility] PAIN 0 06/09/2024 08:53:00 [place] [facility] HEIGHT 68.0 06/09/2024 08:53:00 [place] [facility] RESPIRATION 20 06/09/2024 08:53:00 [place] [facility] Encounters Combined list of: 1) Encounters from Department of Veterans Affairs facilities going backup to the last 18 months, not all VA inpatient encounters are included; 2) Encounters from the Department of Defense facilities going backup to 280 months. Location Location Details Encounter Type Encounter Number Reason For Visit Attending Provider ADM Date DC Date Status Disposition Source [place]) OUTPATIENT [id number] bilater al knee pain TAMMY CLARK HARRIS 03/02 Released with Work/Duty Limitations [place] Treat[place]) [facility] [place](Pr imary Care Cln) OUTPATIENT [id number] r shoulde r pain SAMANTHA ROSE 07/22 Released with Work/Duty Limitations [facility] [place]( Primary Care Cln) [facility] [place](Pr imary Care Cln) OUTPATIENT [id number] f/u r shoulde r pain LUIS ANGEL WEBSTER 07/30 Released with Work/Duty Limitations [facility] [place]( Primary Care Cln) [facility] [place](Pr imary Care Cln) OUTPATIENT [id number] imms LUIS ANGEL WEBSTER 08/11 Released w/o Limitations [facility] [place]( Primary [place]) [place] OUTPATIENT [id number] Bicep tendoni tis with scapula r muscle asymmet ry FLAKO GAY 02/13 Released w/o Limitations [place] [place]) OUTPATIENT [id number] FLAKO GAY 03/05 [place] w/o Limitations [place] [place] OUTPATIENT [id number] MED CERT PE/PMO AYADPARI SELF Aadm 03/09 Released w/o Limitations [place] [facility] [facility] [employer] [place] OUTPATIENT [id number] MARK [place] Anthony 03/10 Released w/o Limitations [place] [place] [employer] [place]) OUTPATIENT [id number] NON DOT PE MOO OSPINA Joe 03/12 Released w/o Limitations [place] [employer] [place] Occup[facility] ional Medicin e) [place] OUTPATIENT [id number] shoulde linette f/u FLAKO GAY 03/19 Released w/o Limitations [place] [place] OUTPATIENT [id number] MALS13 neck pain 04/07 stiffne ss reoccur CHASIDY Mascorro 06/21 Released with Work/Duty Limitations [place] [place] [place] OUTPATIENT [id number] c/o blurred vision MAX JC H 07/16 Released w/o Limitations [place] OUTPATIENT [id number] mals-13 / allergi c reactio n RHONA RICHARDSON 07/21 Sick at Home/Quarter [place] [place] TELE CONSULT [id number] ELIEZERS-13 - Pt. given OTC meds for cold s/sx CHASIDY THAKUR 09/02 [place] [place]) OUTPATIENT [id number] MALS-13 right knee injury X 1 day CHASIDY THAKUR 10/07 Released with Work/Duty Limitations [place]) [place] [id number] MALS 13 R hamstri ng strain unresol romero CHASIDY THAKUR 10/11 Released with Work/Duty Limitations [place] [place] [facility] [facility] OUTPATIENT [id number] MALS F/U CHASIDY THAKUR 10/15 Released with Work/Duty Limitations [place] [facility] OUTPAT[place] [id number] Knee joint pain ISAIAS GRAY 11/03 Released with Work/Duty Limitations [place] [place] OUTPATIENT [id number] ISAIAS GRAY 11/08 Released with Work/Duty Limitations [place] [place] OUTPATIENT [id number] ISAIAS GRAY 11/11 Released w/o Limitations [place] [place] OUTPATIENT [id number] ISAIAS GRAY 11/16 Released with Work/Duty Limitations [place] [place]) OUTPATIENT [id number] MALS13 F/U ER visit CHASIDY THAKUR 11/18 [place]ick at Home/Quarter [place] [place] [facility] OUTPATIENT [id number] ISAIAS GRAY 11/30 Released with Work/Duty Limitations [place] [place] [place] OUTPATIENT [id number] hilda castillo physica l MAX JC H 11/30 Released w/o Limitations [facility] [place] OUTPATIENT [id number] ISAIAS GRAY 12/03 [facility] w[facility] Limitations [facility] [place] [place] OUTPATIENT [id number] ISAIAS GRAY 12/06 Released w/o Limitations [facility] [place] [place] OUTPAT[place] [id number] ISAIAS GRAY 12/10 [place]/o Limitations [place] [place] OUTPATIENT [id number] MALS-13 Poss L Wrist Fractur e CHASIDY THAKUR 12/14 [place]ick [place] [place] [facility] [facility] OUTPATIENT [id number] jasi adam fx from [place] ZAVALA GILDA T 12/16 Released w/o Limitations [facility] OUTPATIENT [id number] xrip l navicul ar TI Arellano 12/23 Released w/o Limitations [facility]) [facility]) OUTPATIENT [id number] preop COURTNEY FREDERICK 12/29 Released with Work/Duty Limitations [facility] ) [place] TELE CONSULT [id number] CHASIDY THAKUR 01/05 [place] [facility] [facility] hoped[facility]) OUTPATIENT [id number] POp Wd Ck L Scaphoi d s/p Per Pinning DOS:2Ma r BJORNANEL MaldonadoRI LIONEL 01/06 Released w/o Limitations [facility] [place] [id number] Mals 13 F/U ER Broken L thumb CHASIDY THAKUR 01/26 Released with Work/Duty Limitations [place] [facility] hoped[facility]) OUTPATIENT [id number] Cast check L Scaphoi d s/p Pinning BJORNErica JAIMESHANTELL FLOWERS 01/27 Released w/o Limitations [facility]oped [facility] ) [facility] hoped[facility] Service) OUTPATIENT [id number] left scaphoi d f/u xroop COURTNEY FREDERICK P 02/10 Released with Work/Duty Limitations [facility] ) [facility] hoped[facility]) OUTPATIENT [id number] wk f/u lt scaphoi d COURTNEY FREDERICK P 03/24 Released w/o Limitations [facility] ) [facility] OUTPATIENT [id number] CR Walk-in JUAN KNAPP 03/24 Released w/o Limitations [facility] ) [place] OUTPATIENT [id number] MALS-13 F/U Left arm numbnes s SONIYA TOVAR 06/09 [place] [place] OUTPATIENT [id number] numbnes s karthik L tamarat MELVINA Nguyen 06/13 [place] [place] TELE CONSULT [id number] [facility] wrist YAOMOMOE DENNISON E 06/22 [place] OUTPATIENT [id number] mals, N/V x12hrs SONIYA TOVAR Tom 06/28 [place]ased [place]/o Limitations [place] OUTPATIENT [id number] Mals, F/u Rt hand injury MOE FLORIAN E 09/29 [place]ased w/o Limitations [place] OUTPATIENT [id number] L hand mri f/u MOE FLORIAN E 10/07 [place]ased w/o Limitations [place]) [facility]) OUTPATIENT [id number] Left hand f/u COURTNEY FREDERICK P 10/20 Released w/o Limitations [facility](O rthoped ic Hand Service ) [facility](Lat hopedic [facility] Service) OUTPATIENT [id number] PreOp Benicia L Hand Dupuytr en's Rel DOS:25 Oct COURTNEY FREDERICK P 11/21 Released w/o Limitations [facility] rthoped ic Hand Service ) [facility] hoped[facility]) OUTPATIENT [id number] POp Wd Ck L Hand s/p Dupuytr en's Rel DOS:25 Oct COURTNEY FREDERICK P 12/06 Released with Work/Duty Limitations [facility] rthoped ic [facility] ) [facility] OUTPATIENT [id number] f/u L hand Dupuytr en's REL COURTNEY FREDERICK P 03/23 Released w/o Limitations [facility] [place] [id number] annual audiogr am STRIFFOLIN ARSENIO Li 05/08 [place] Limitations [place] [facility] OUTPATIENT [id number] PreOp Minor L LF Mass Exc DOS:10 May COURTNEY FREDERICK P 05/09 Released w/o Limitations [facility]) [facility] OUTPATIENT [id number] Minor Proc L LF Mass Exc COURTNEY FREDERICK P 05/10 Released with Work/Duty Limitations [facility] [place] [place] [id number] last exam 2008 MAX JC H 05/15 [place] [id number] Follow Up1 audiogr am STRIFFOLIN ARSENIO Li 05/15 [place]itations [place] [facility] OUTPATIENT [id number] POp Wd Ck L LF s/p Mass Exc DOS: 10 May COURTNEY FREDERICK P 05/25 Released w/o Limitations [facility] [place] OUTPATIENT [id number] [facility]-13 / N-V-D x today MOE FLORIAN E 08/18 [facility] [place] [place] OUTPATIENT [id number] cough and congest ion x4 days JARED JIMENEZ 09/25 [place] w/o Limitations [place] OUTPATIENT [id number] f/u for hand MOE FLORIAN E 09/28 Released w/o Limitations [place] [facility] [id number] pos sts JUAN CARLOS MEJIA Pascual 10/05 Released w/o Limitations [place]) OUTPATIENT [id number] ortho consult , cancer screyferi craig (per patient ) MOE FLORIAN 12/08 Released with Work/Duty Limitations [place] [facility] OUTPATIENT [id number] f/u L HAND MASS reoccur COURTNEY Atkins 01/01 Released with Work/Duty Limitations [facility]) [facility] OUTPATIENT [id number] POP wd ck L LF palm mass exc. DOS:27M COURTNEY Pagan 02/05 Released with Work/Duty Limitations [facility] [place] OUT[place] [id number] Notes Entered by: JASVIR SIDHU 23 Apr 2012 1550 ------- ------- ------- ------- -- annual audiogr am ARSENIO FRIEND 04/23 Released w/o Limitations [place] [facility] OUTPATIENT [id number] f/u L hand RIC HOYOS 04/29 Released w/o Limitations [facility] [place] [place] OUTPATIENT [id number] Notes Entered by: ASHLEE MAYNARD 08 May 2012 1439 ------- ------- ------- ------- -- drivers license ROSSY Loza/11 /2012 Released w/o Limitations [place] [facility] Outpatient Encounter [id number] Anthony ESPINOZA R 12/05 [place] [facility] Outpatient Encounter [id number] 12/12 [facility] Outpatient Encounter [id number] 01/06 [facility] [place] [facility] Outpatient Encounter [id number] 01/09 [place] [facility] OFF/OP EST MAY X REQ PHY/QHP [id number] Diagnos is: ICD-10- CM M25.512 Pain in left shoulde r JASON LOWERY LINDA R 01/13 [facility] Outpatient Encounter [id number] 01/13 [facility] OFFICE O/P EST MOD 30 MIN [id number] Diagnos is: ICD-10- CM E11.9 Type 2 diabete s mellitu s without complic ations Joe ROBERTS 06/09 [facility] FUNDUS PHOTOGRAPH Y W/I&R [id number] Diagnos is: ICD-10- CM Z13.5 Encount er for screeni ng for eye and ear disorde WENDIE Lawrence M 06/09 [facility] [place] [facility] Outpatient Encounter [id number] Diagnos is: ICD-10- CM Z13.5 Encount er for screeni ng for eye and ear disorde rs Erika ANDRADE 06/10 [place] [facility] Outpatient Encounter [id number] 06/16 [facility] Encounter [id number] 06/25 [facility]patient Encounter [id number] 07/01 [facility] Encounter [id number] JASON LOWERY 09/10 [facility] N [facility] Outpatient Encounter [id number] 09/13 [facility] OFFICE O/P EST LOW 20 MIN [id number] [id number] Diagnos is: ICD-10- CM H61.21 Impacte d cerumen , right ear ANDREA,CAR OLYN S 09/13 [facility] Outpatient Encounter [id number] LILLI,CHR ISSOM J 09/15 [facility] PSYTX W PT 60 MINUTES [id number] [id number] Diagnos is: ICD-10- CM F43.12 Post-tr aumatic stress disorde r, chronic LILLI,CHR ISSOM J 09/15 [facility] Encounter [id number] 09/19 [facility] IMMUNIZATI ON ADMIN [id number] Diagnos is: ICD-10- CM Z23 Encount er for immuniz ation HOWIEEMELINA LY N 10/20 [facility] PSYTX W PT 60 MINUTES [id number] Diagnos is: ICD-10- CM F33.1 Major depress letitia disorde r, recurre nt, moderat e LILLI,[facility] ISSOM J 10/21 [facility] PSYTX W PT 60 MINUTES [id number] [id number] Diagnos is: ICD-10- CM F33.1 Major depress letitia disorde r, recurre nt, moderat e LILLI,[facility] ISSOM J 11/14 [facility] Outpatient Encounter [id number] TAMARJOHN RIL L 11/24 [facility] OFF/OP EST FEBRUARY X REQ PHY/QHP [id number] [id number] Diagnos is: ICD-10- CM J09.X9 Flu due to ident novel influen za A virus w oth manifjonathan t DARRION RED D 11/27 [facility] Outpatient Encounter [id number] TAMARAP RIL L 12/01 [facility] PSYTX W PT 60 MINUTES [id number] Diagnos is: ICD-10- CM F33.1 Major depress letitia disorde r, recurre nt, moderat e LILLI,[facility] ISSOM J 12/02 [facility] FEE [id number] Diagnos is: ICD-10- CM E11.9 Type 2 diabete s mellitu s without complic ations SEBASTIÁN,JASON LINDA R 12/04 [place] [facility] OFFICE O/P EST LOW 20 MIN [id number] Diagnos is: ICD-10- CM E11.9 Type 2 diabete s mellitu s without complic ations ASHLEE MENENDEZ 12/04 [place] [facility] PSYTX W PT 60 MINUTES [id number] Diagnos is: ICD-10- CM F33.1 Major depress letitia disorde r, recurre nt, moderat e LILLI,[facility] ISSOM J 12/19 [facility] PSYTX W PT 60 MINUTES [id number] Diagnos is: ICD-10- CM F33.1 Major depress letitia disorde r, recurre nt, moderat e LILLI,[facility] ISSOM J 01/05 [facility] [place] [facility] Outpatient Encounter [id number] 01/12 [place] [facility] [place] [facility] Outpatient Encounter [id number] 01/12 [place] [facility] PSYTX W PT 60 MINUTES [id number] [id number] Diagnos is: ICD-10- CM F33.1 Major depress letitia disorde r, recurre nt, moderat e LILLI,[facility] ISSOM J 01/19 [place] [facility] PSYTX W PT 60 MINUTES [id number] Diagnos is: ICD-10- CM F33.1 Major depress letitia disorde r, recurre nt, moderat e LILLI,[facility] ISSOM J 02/16 [place] [facility] [place] [facility] PSYTX W PT 60 MINUTES [id number] [id number] Diagnos is: ICD-10- CM F33.1 Major depress letitia disorde r, recurre nt, moderat e LILLI,[facility] 03[facility] PSYTX W PT 45 MINUTES [id number] [id number] Diagnos is: ICD-10- CM F33.1 Major depress letitia disorde r, recurre nt, moderat e LILLI,[facility] ISSOM J 03/16 [facility] [place] [facility] Outpatient Encounter [id number] 03/25 [place] [facility] PSYTX W PT 60 MINUTES [id number] [id number] Diagnos is: ICD-10- CM F33.1 Major depress letitia disorde r, recurre nt, moderat e [facility]30 [facility] Outpatient Encounter [id number] 05/29 [facility] N [facility] PSYTX W PT 60 MINUTES [id number] [id number] Diagnos is: ICD-10- CM F33.1 Major depress letitia disorde r, recurre nt, moderat e LILLI,[facility] ISSOM J 06/01 [facility] Procedures Combined list of: 1) Procedures from Department of Veterans Affairs facilities going back up to thelast 18 months, not all [place] non-surgical procedures are included; 2) All procedures from the Department of Defense facilities. Procedure Procedure Type Code Date Perfomer Comments Sour e INFLUENZA VIRUS VACCINE, TRIVALENT, LIVE (LAIV3), FOR INTRANASAL USE 008 DoD POSTOPERATIVE FOLLOW-UP VISIT, NORMALLY INCLUDED IN THE SURGICAL PACKAGE, INDICATE THAT EVALUATION & MANAGEMENT SERVICE WAS PERFORMED DURING A POSTOPERATIVE PERIOD REASON RELATED ORIGINAL PROCEDURE 012 [facility] FASCIECTOMY, PALM ONLY, WITH OR WITHOUT Z-PLASTY, OTHER LOCAL TISSUE REARRANGEMENT, OR SKIN GRAFTING (INCLUDES OBTAINING GRAFT) 012 DoD POSTOPERATIVE FOLLOW-UP VISIT, NORMALLY INCLUDED IN THE SURGICAL PACKAGE, INDICATE THAT EVALUATION & MANAGEMENT SERVICE WAS PERFORMED DURING A POSTOPERATIVE PERIOD REASON RELATED ORIGINAL PROCEDURE 011 [facility] EXCISION, TUMOR, SOFT TISSUE, OR VASCULAR MALFORMATION, OF HAND OR FINGER, SUBFASCIAL (EG, INTRAMUSCULAR); LESS THAN 1.[address] [facility] POSTOPERATIVE FOLLOW-UP VISIT, NORMALLY INCLUDED IN THE SURGICAL PACKAGE, INDICATE THAT EVALUATION & MANAGEMENT SERVICE WAS PERFORMED DURING A POSTOPERATIVE PERIOD REASON RELATED ORIGINAL PROCEDURE 011 [facility] FASCIECTOMY, PARTIAL PALMAR WITH RELEASE OF SINGLE DIGIT INCL.PROXIMAL INTERPHALANGEAL JOINT, W/ OR W/O Z-PLASTY, OTHER LOCAL TISSUE REARRANGEMENT, OR SKIN GRAFTING (INCL. OBTAINING GRAFT); 011 [facility] SELF-CARE/HOME MANAGMENT TRAIN (EG,ACT OF DAILY LIVING (ADL) &COMPENSAT TRAIN,MEAL PREPARATION,SAFETY PROCS,AND INSTRUCT IN USE OF ASST TECHNOLOGY DEV/ADPT EQUIP) DIR ONE-ON-ONE CONT,EA [address] [facility] APPLICATION OF A MODALITY TO 1 OR MORE AREAS; HOT OR COLD PACKS 010 [facility] POSTOPERATIVE FOLLOW-UP VISIT, NORMALLY INCLUDED IN THE SURGICAL PACKAGE, INDICATE THAT EVALUATION & MANAGEMENT SERVICE WAS PERFORMED DURING A POSTOPERATIVE PERIOD REASON RELATED ORIGINAL PROCEDURE 010 [facility] APPLICATION, CAST; ELBOW TO FINGER 010 [facility] APPLICATION, CAST; ELBOW TO FINGER 010 DoD CLOSED TREATMENT OF CARPAL SCAPHOID (NAVICULAR) FRACTURE; WITH MANIPULATION 010 [facility] APPLICATION, CAST; SHOULDER TO HAND 010 [facility] INFLUENZA VIRUS VACCINE, TRIVALENT, LIVE (LAIV3), FOR INTRANASAL USE 008 [facility] PATIENT EDUCATION, NOT OTHERWISE CLASSIFIED, NON-PHYSICIAN PROVIDER, INDIVIDUAL, PER SESSION 008 [facility] PATIENT EDUCATION, NOT OTHERWISE CLASSIFIED, NON-PHYSICIAN PROVIDER, INDIVIDUAL, PER SESSION 008 [facility] PURE TONE AUDIOMETRY (THRESHOLD); AIR ONLY 007 [facility] OPHTHALMOLOGICAL SERVICES: MEDICAL EXAMINATION AND EVALUATION WITH INITIATION OF DIAGNOSTIC AND TREATMENT PROGRAM; INTERMEDIATE, NEW PATIENT 007 [facility] Visual Function Screening Visual Function Screening [address] [facility] Patient education, not otherwise cla ified, non-physician provider, individual, per se ion 012 ARSENIO MCDANIEL Threshold Audiogram (Pure Tone) Threshold Audiogram (Pure Tone) 05085 012 ARSENIO MCDANIEL Postoperative Visit, Without Charge Postoperative Visit, Without Charge 11231 012 COURTNEY FREDERICK Special ENT Services MD Evaluation of Speech/Hearing Problem JUAN CARLOS MEJIA Comprehensive Audiometry Comprehensive Audiometry 46337 011 JUAN CARLOS MEJIA Evoked Otoacoustic Rosalie ions Diagnostic Evaluation JUAN CARLOS MEJIA Tympanometry Tympanometry 01607 011 JUAN CARLOS MEJIA Postoperative Visit, Without Charge Postoperative Visit, Without Charge 65926 011 KYLER HAWKINS Patient education, not otherwise cla ified, non-physician provider, group, per se ion 011 ARSENIO MCDANIEL Audiometry Group Testing Audiometry Group Testing 13008 011 ARSENIO MCDANIEL Spectacles Services Fitting Monofocals (Not For Aphakia) Spectacles Services Fitting Monofocals (Not For Aphakia) 63748 011 JC SANTANA Determination Of Refractive State Determination Of Refractive State 71296 011 JC SANTANA Ophthalmological Prior Patient Start Comprehensive Care Ophthalmological Prior Patient Start Comprehensive Care 86755 011 JC SANTANA 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 Training And Self-Care Skills Training And Self-Care Skills [address] [facility] Modalities Heat Hot Packs Modalities Heat Hot Packs [address] [facility] Occupational Therapy Evaluation Occupational Therapy Evaluation [address] [facility] Modalities Cryotherapy Cold Packs Modalities Cryotherapy Cold Packs [address] [facility] Modalities Electrical Stimulation Unattended Modalities Electrical Stimulation Unattended [address] [facility] Physical Therapy: ___ Se ion Segments, 15 Minutes Each Physical Therapy: ___ Session Segments, 15 Minutes Each [address] [facility] Postoperative Visit, Without Charge Postoperative Visit, Without Charge [address] [facility] Training And Self-Care Skills Training And Self-Care Skills [address] [facility] Orthopedic Splinting Short Arm Orthopedic Splinting Short Arm [address] [facility] Psychiatric Therapy Individual Approximately 45-50 Minutes Psychiatric Therapy Individual Approximately 45-50 Minutes [id number] [facility] Orthopedic Casting Short Arm Orthopedic Casting Short Arm [phone] [facility] [facility] Postoperative Visit, Without Charge Postoperative Visit, Without Charge [phone] VIC [facility] Psychiatric Therapy Individual Approximately 45-50 Minutes Psychiatric Therapy Individual Approximately 45-50 Minutes [id number] [facility] Orthopedic Casting Short Arm Orthopedic Casting Short Arm 03297 010 JAIME HO [facility] Postoperative Visit, Without Charge Postoperative Visit, Without Charge [phone] VIC [facility] Psychiatric Therapy Individual Approximately 45-50 Minutes Psychiatric Therapy Individual Approximately 45-50 Minutes [id number] [facility] Orthopedic Casting Long Arm Orthopedic Casting Long Arm [address] [facility] Physical Therapy: ___ Se ion Segments, 15 Minutes Each Physical Therapy: ___ Session Segments, 15 Minutes Each [id number] [facility] Modalities Electrical Stimulation Unattended Modalities Electrical Stimulation Unattended 23187 010 ISAIAS GRAY Modalities Cryotherapy Cold Packs Modalities Cryotherapy Cold Packs 92068 010 ISAIAS GRAY Modalities Cryotherapy Cold Packs Modalities Cryotherapy Cold Packs 74490 010 ISAIAS GRAY Modalities Electrical Stimulation Unattended Modalities Electrical Stimulation Unattended 41644 010 ISAIAS GRAY Physical Therapy: ___ Se ion Segments, 15 Minutes Each Physical Therapy: ___ Session Segments, 15 Minutes Each 28427 010 ISAIAS GRAY Physical Therapy: ___ Se ion Segments, 15 Minutes Each Physical Therapy: ___ Session Segments, 15 Minutes Each [id number] 010 ISAIAS GRAY Modalities Cryotherapy Cold Packs Modalities Cryotherapy Cold Packs 52234 010 ISAIAS GRAY Modalities Electrical Stimulation Modalities Electrical Stimulation 10189 010 ISAIAS GRAY Modalities Electrical Stimulation Unattended Modalities Electrical Stimulation Unattended 39432 010 ISAIAS GRAY Physical Therapy: ___ Se ion Segments, 15 Minutes Each Physical Therapy: ___ Session Segments, 15 Minutes Each 11855 010 ISAIAS GRAY Modalities Heat Hot Packs Modalities Heat Hot Packs [address] [facility] Visual Function Screening Visual Function Screening [phone] MEADE, FATUMA [facility] Psychiatric Therapy Individual Approximately 45-50 Minutes Psychiatric Therapy Individual Approximately 45-50 Minutes [address] [facility] Physical Therapy: ___ Se ion Segments, 15 Minutes Each Physical Therapy: ___ Session Segments, 15 Minutes Each 31301 010 ISAIAS GRAY Modalities Electrical Stimulation Unattended Modalities Electrical Stimulation Unattended 26332 010 ISAIAS GRAY Modalities Cryotherapy Cold Packs Modalities Cryotherapy Cold Packs [address] [facility] Physical Therapy: ___ Se ion Segments, 15 Minutes Each Physical Therapy: ___ Session Segments, 15 Minutes Each [address] [facility] Modalities Electrical Stimulation Unattended Modalities Electrical Stimulation Unattended [address] [facility] Modalities Cryotherapy Cold Packs Modalities Cryotherapy Cold Packs [address] [facility] Physical Medicine Physical Therapy Evaluation Physical Medicine Physical Therapy Evaluation [address] [facility] Psychiatric Therapy Individual Approximately 45-50 Minutes Psychiatric Therapy Individual Approximately 45-50 Minutes [address] [facility] Psychiatric Therapy Individual Approximately 45-50 Minutes Psychiatric Therapy Individual Approximately 45-50 Minutes [id number] [facility] Psychiatric Therapy Individual Approximately 20-30 Minutes Psychiatric Therapy Individual Approximately 20-30 Minutes [address] [facility] Psychiatric Therapy Individual Approximately 45-50 Minutes Psychiatric Therapy Individual Approximately 45-50 Minutes [address] [facility] Ophthalmological New Patient Start Comprehensive Care Ophthalmological New Patient Start Comprehensive Care [id number] 009 SANTANAJC [facility] Spectacles Services Fitting Monofocals (Not For Aphakia) Spectacles Services Fitting Monofocals (Not For Aphakia) 57797 009 [facility] Determination Of Refractive State Determination Of Refractive State [address] [facility] Visual Lamb Test Extended Examination Visual Lamb Test Extended Examination 87752 009 SANTANAJC [facility] Training And Self-Care Skills Training And Self-Care Skills [address] [facility] for D/C to self care [facility] Physical Therapy Mobilization Joint Physical Therapy Mobilization Joint 01225 009 FLAKO GAY Supine rortation mobilization of C 5/ grade III+ 3x30//audible cavitation appreciated followed by pt reports pain decreases to 3/10. pain now centered in uppoer thoracic Seated distraction manipulation of T4//audible cavitation appreciated. pain reduced to a general 1/[address] [facility] Range Of Motion Evaluation Of Extremity Range Of Motion Evaluation Of Extremity [address]Supervised Services Provision Of Special Supplies -Supervised Services Provision Of Special Supplies 89679 [facility] Special Services Analysis Of Computerized Data Special Services Analysis Of Computerized Data 57405 BURT [facility] Services Special Review / Reporting Of Patient Status Services Special Review / Reporting Of Patient Status 01664 [facility] Threshold Audiogram (Pure Tone) Threshold Audiogram (Pure Tone) 16444 [facility] -Supervised Services Provision Of Educational Supplies -Supervised Services Provision Of Educational Supplies 65659 BURT [facility] Audiometry Group Testing Audiometry Group Testing 75578 [facility] Extensive Color Vision Testing Extensive Color Vision Testing [address] [facility] Screening Test Of Visual Acuity, Quantitative, Bilateral Screening Test Of Visual Acuity, Quantitative, Bilateral [address] [facility] ECG 12-Lead ECG 12-Lead [id number] PARI LION [facility] Audiogram (Screening) Audiogram (Screening) [address] [facility] Physical Therapy Neuromuscular Re-education Physical Therapy Neuromuscular Re-education 74058 FLAKO GAY [place] V with RTB Handout and RTB issued [facility] Training And Self-Care Skills Training And Self-Care Skills 34652 FLAKO GAY HEP/POC Self stretching postural re-ed [facility] Physical Therapy Mobilization Joint Physical Therapy Mobilization Joint 23979 FLAKO GAY Supine rotation mobilization of C5/ grade III+ 3x30// audible cavitation appreciated pt demonstrates Full A/ PROM cervical pain free R SB and R ROT. Shoulder pain decreases to 1/10 between shoulder blades with forward flexion Distraction manipulation of T4 in sitting/ Grade III+/ Audible cavitation appreciated pt demonstrates full return of all A/PROM R shoulder pain free. pt reports 0-1/10 pain general soreness [address] [facility] Physical Medicine Physical Therapy Evaluation Physical Medicine Physical Therapy Evaluation [address] [facility] Range Of Motion Evaluation Of Extremity Range Of Motion Evaluation Of Extremity [address] [facility] Influenza Virus Vaccine Live Intranasal Influenza Virus Vaccine Live Intranasal [address] [facility] Immunization Administration One Vaccine Immunization Administration One Vaccine [address] [facility] Social History Combined list of available smoking, tobacco, and other social history from Department of Defense and Veterans Affairs facilities. Social History Type Response Date Comment Sourc e Tobacco smoking status NHIS VA-TOBACCO FORMER USER 06/09/2024 [facility] History of tobacco use TX-TOBACCO QUIT 1 TO < 5 YRS 06/09/2024 [facility] History of tobacco use VA-TOBACCO QUIT 1 TO < 5 YRS 06/05/2023 [facility] History of tobacco use VA-TOBACCO USER E VERY DAY 06/05/2022 [facility] History of tobacco use VA-TOBACCO NEVER USED 05/19/2021 [facility] History of tobacco use VA-TOBACCO USE CO UNSEL NO 06/02/2019 [facility] History of tobacco use TOBACCO USER OFFE RED MEDS 07/15/2018 [facility] History of tobacco use CURRENT TOBACCO USER 07/11/2018 [facility] History of tobacco use TOBACCO USER OFFE RED MEDS 12/05/2017 [facility] History of tobacco use QUIT TOBACCO >12 MO and <7 YRS AGO 05/01/2016 [facility] History of tobacco use CURRENT NON-SMOKER 04/27/2016 [facility] History of tobacco use CURRENT TOBACCO USER 07/01/2015 [facility] History of tobacco use CURRENT TOBACCO USER 03/30/2015 [facility] This section is an empty social history section. [facility] Plan of Care List of future care activities from Department of Veterans Affairs facilities. Additional future care activities may be listed in the Assessment and Plan section. Date/Time Care Activity Care Activity Detail Facili ty 06/15/2025 AMBULATORY - MEDICINE [facility] Advance Directives List of completed, amended, or rescinded Advance Directives on record at Department of [facility] Affairs facilities. An actual copy of the Directive is not included. Date Advance Directive Provider Source 08/06/2015 ADVANCE DIRECTIVE DISCUSSION FLORENCIO EVANS [facility]
--- OUTSIDE RECORDS SUMMARY | 2025-06-03 11:39 | XMS_ITS | Clinical Summary ---
Author Organization [facility] Address [address] [place] [phone] Care Team Providers Care Student Services Coordinator Name Role Phone Non-Staff, Physician Primary Care Provider Unava ilable Allergies Active Allergy Reactions Criticality Noted Date Comments Hymenoptera Allergenic Extract Swelling Low 04/24 Lactose Diarrhea Low 04/24/2018 Medications glipiZIDE (GLUCOTROL) 10 mg tablet Take 10 mg by mouth 2 times daily. Active pravastatin (PRAVACHOL) 10 mg tablet Take 10 mg by mouth late in the day. Active Miscellaneous Medical SupplyIndicatio ns:Right knee pain, unspecified chronicity ACL STABILIZATION BRACE. 1 Each 8 Active metFORMIN (GLUCOPHAGE) 500 mg tablet Take 500 mg by mouth 2 times daily with meals. Active cholecalciferol , vitamin D3, (VITAMIN D3 ORAL) Take 1 Capsule by mouth 2 times daily. 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 Gender Identity Not on file Sexual Orientation Not on file Last Filed Vital Signs Vital Sign Reading Time Taken Comments Blood Pressure 115/77 02/08/2021 10:14 AM CDT Pulse 83 02/08/2021 10:14 AM CDT Temperature 36.2 C (97.1 F) 12/24/2020 2:42 PM VOLTAGE REGULATOR ASSEMBLER Respiratory Rate 14 12/24/2020 2:42 PM VOLTAGE REGULATOR ASSEMBLER Oxygen Saturation 96% 12/24/2020 3:00 PM VOLTAGE REGULATOR ASSEMBLER Inhaled Oxygen Concentration - - Weight 58.1 kg (128 lb) 02/08/2021 10:14 AM CDT Height 172.7 cm (5' 8 ) 02/08/2021 10:14 AM CDT Body Mass Index 19.46 02/08/2021 10:14 AM CDT Plan of Treatment Health Maintenance Due Date Last Done Comments HPV VACCINES (1 - Male 3-dose series) 2003 DIABETES ANNUAL FOOT EXAM 2006 DIABETES MICROALBUMIN ANNUAL SCREEN 2006 LDL CHOLESTEROL ANNUAL 2006 HEPATITIS B VACCINES (2 of 3 - Hep B Twinrix 3-dose series) 12/17/2008 11/19/2008 DIABETES ANNUAL RETINAL EXAM 05/15/2012 05/15/2011, 07/16/2009 DIABETES HBA1C Q 6 MONTHS 05/19/2021 11/19/2020 INFLUENZA VACCINE (#1) 2025 12/01/2019, 2011 DTAP/TDAP/TD VACCINES (3 - Td or Tdap) 12/01/2029, 04/19/2015 Medical Devices Implanted Type Area Bulk Station Agent Device Identifier Shelf Expiration Date Model / Serial / Lot Tightrope Rt Acl [id number] - [id number] Implanted:Qty: 1 on 04/24/2018 by Go Marino III, MD at [facility] [place] Right: Knee [employer] 02/25/2023 AR-[id number] T / / [id number] Hemostatic Surgifoam Sz12-7 1971 - [id number] Implanted:Qty: 1 on 12/24/2020 by Carli Gandara MD at [facility] Hemostatic Left: Hand [employer] [id number] 04/16/20241971 / / [id number] Insurance RX [employer] RX [employer] RX Member Subscriber Plan / Payer (Ef fective for All Dates) Name:Sharif Bass Relation to Subscriber:Self Name:SHARIF BASS Payer ID:Not on file Type:RX Commercial Address: [place] [employer] Advance Directives For more information, please contact: [phone] * Full Code (Latest Code Status on File) Date Activated Date Inactivated Comments 12/24/2020 11:32 AM 12/24/2020 5:30 PM * Full Code Date Activated Date Inactivated Comments 04/24/2018 6:17 AM 04/24/2018 12:42 PM Care Teams Student Services Coordinator Relationship Specialty Start Date End Date Non-Staff, Physician NO ADDRESS ON FILE PCP - General 04/26/18
--- OUTSIDE RECORDS SUMMARY | 2025-06-03 11:39 | XMS_ITS | Clinical Summary ---
Author Organization [facility] Address [address] [place] [address] Care Team Providers Care Street Supervisor Name Role Phone Non-Staff, Physician Primary Care Provider Unava ilable Allergies Active Allergy Reactions Criticality Noted Date Comments Hymenoptera Allergenic Extract Swelling Low 04/24 Lactose Diarrhea Low 04/24/2018 Medications amitriptyline (ELAVIL) 50 mg tablet 1 Active cholecalciferol , Vitamin D3, 50 mcg (2,000 unit) Tablet 1 Active glipiZIDE (GLUCOTROL) 10 mg tablet 1 Active metFORMIN (GLUCOPHAGE) 500 mg tablet Take 500 mg by mouth. Active pravastatin (PRAVACHOL) 10 mg tablet Take 10 mg by mouth. Active glipiZIDE (GLUCOTROL) 10 mg tablet Take 10 mg by mouth 2 times daily. 8 Active metFORMIN (GLUCOPHAGE) 500 mg tablet Take 500 mg by mouth 2 times daily with meals. 8 Active Miscellaneous Medical SupplyIndicatio ns:Right knee pain, unspecified chronicity ACL STABILIZATION BRACE. 1 Each 0 8 Active pravastatin (PRAVACHOL) 10 mg tablet Take 10 mg by mouth late in the day. 8 Active cholecalciferol , vitamin D3, (VITAMIN D3 ORAL) Take 1 Capsule by mouth 2 times daily. 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 Gender Identity Not on file Sexual Orientation Not on file Last Filed Vital Signs Vital Sign Reading Time Taken Comments Blood Pressure 113/72 05/05/2021 10:25 AM CDT Pulse 75 05/05/2021 10:25 AM CDT Temperature 36.2 C (97.1 F) 12/24/2020 2:42 PM MANAGER RFID Respiratory Rate 14 12/24/2020 2:42 PM MANAGER RFID Oxygen Saturation - - Inhaled Oxygen Concentration - - Weight 58.1 kg (128 lb) 05/05/2021 10:25 AM CDT Height 172.7 cm (5' 8 ) 05/05/2021 10:25 AM CDT Body Mass Index 19.46 05/05/2021 10:25 AM CDT Plan of Treatment Health Maintenance Due Date Last Done Comments HPV VACCINES (1 - Male 3-dose series) 2003 DTAP/TDAP/TD VACCINES (1 - Tdap) 2007 HEPATITIS B VACCINES (1 of 3 - 19+ 3-dose series) 02/2007 INFLUENZA VACCINE (#1) 2025 Medical Devices Implanted Type Area Nail Artist Device Identifier Shelf Expiration Date Model / Serial / Lot Tightrope Rt Acl [id number] - [id number] Implanted:Qty : 1 on 04/24/2018 by Go Marino III, MD [place] Right: Knee [employer] 02/25/2023 AR-1588RT / / [id number] Hemostatic Surgifoam Sz12-7 1971 - [id number] Implanted:Qty : 1 on 12/24/2020 by Carli Gandara MD Hemostatic Left: Hand [employer] [id number] 04/16/20241971 [id number] Insurance * Guarantor: SHARIF BASS Account Type Relation to Patient Date of Phone Billing Address Personal/Family [address] [place] [id number] RX [employer] RX Member Subscriber Plan / Payer (Ef fective for All Dates) Name:Sharif Bass Relation to Subscriber:Self Name:Sharif Bass Payer ID:Not on file Type:RX Commercial Address: [place], [place] RX [employer] Express Care Teams Street Supervisor Relationship Specialty Start Date End Date Non-Staff, Physician NO ADDRESS ON FILE PCP - General 02/07/21
--- OUTSIDE RECORDS SUMMARY | 2025-06-03 11:40 | XMS_ITS | Encounter Summary ---
Author Organization [facility] Address [address] [place] [address] Care Team Providers Care Jump Iron Machine Presser Name Role Phone Non-Staff, Physician Primary Care Provider Unava ilable Encounter Details Date Type Department Care Team (Late st Contact Info) Description 07/13/2020 Ancillary Orders [facility] Orthopedics Orthopedic [facility] [address] [place] [address] 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 External Provider [facility] DIAGNOSTIC IMAGING ORDERAB LES Final Result documented in this encounter Visit Diagnoses Diagnosis Pain Generalized pain Pain Generalized pain documented in this encounter Care Teams Jump Iron Machine Presser Relationship Specialty Start Date End Date Non-Staff, Physician NO ADDRESS ON FILE PCP - General 04/26/18 documented as of this encounter
--- OUTSIDE RECORDS SUMMARY | 2025-06-03 11:40 | XMS_ITS | Encounter Summary ---
Author Organization [facility] Address [address] [place] [address] Care Team Providers Care Ditch Digger Name Role Phone Non-Staff, Physician Primary Care Provider Unava ilable Encounter Details Date Type Department Care Team (Late st Contact Info) Description 01/14/2018 Ancillary Orders [facility] Orthopedics - Orthopedic [facility] [address] [place] [address] [facility], External Provider [address] [place] [address] Pain Social History Tobacco Use Types Packs/Day Years Used Date Smoking Tobacco: Never Assessed Sex and Gender Information Value Date Recorded Sex Assigned at Not on file Legal Sex Male 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 External Provider [facility] MR ORDERABLES Final Resu lt * XR PRIOR STUDY (11/27/2017 11:00 AM ORACLE ERP DEVELOPER) Narrative 01/14/2018 8:23 AM CDT This exam was auto finalized to allow images to be scanned to PACS. us External Provider [facility] DIAGNOSTIC IMAGING ORDERAB LES Final Result documented in this encounter Visit Diagnoses Diagnosis Pain Generalized pain Pain Generalized pain Pain Generalized pain documented in this encounter Care Teams Ditch Digger Relationship Specialty Start Date End Date Non-Staff, Physician NO ADDRESS ON FILE PCP - General 04/26/18 documented as of this encounter
[2025-06-03 11:55] VITALS: BP 120/77; PULSE 81; RESP 16; TEMP 36.8; O2SAT 97; BMI 22.1
--- NOTE | 2025-06-03 12:06 | CT_ITS ---
WS: [id number] CT ABDOMEN AND PELVIS WITH CONTRAST HISTORY: abd pain TECHNIQUE: Imaging performed of the abdomen and pelvis with IV contrast. Single phase imaging of the abdomen. Coronal and sagittal reformats are submitted. All CT scans at [facility] use at least one of these dose optimization techniques: automated exposure control; mA and/or kV adjustment per patient size (includes targeted exams where dose is matched to clinical indication); or iterative reconstruction. IV CONTRAST: Omnipaque 350; 100 mL IV. Oral contrast: No DLP: 352.53 mGy.cm COMPARISON: None available. Lower thorax: Lung bases are clear. Heart is normal size. No hiatal hernia. Liver/biliary system: Normal size with no intrahepatic dilatation. Gallbladder: Contracted gallbladder with stones. Several stones also extend towards the neck of the gallbladder. No adjacent inflammation. No bile duct dilatation. Pancreas: Normal size pancreas and pancreatic duct. No adjacent inflammation. Spleen: Normal size with granuloma. Adrenal glands: Normal. Right kidney: Normal. Left kidney: Normal. Aorta: Normal. Lymphadenopathy: None. Free fluid: None. GI tract: No GI tract obstruction. Mild diffuse constipation. Prior appendectomy. No colitis. Abdominal wall: Tiny fat-containing umbilical hernia. Very subtle area of subcutaneous fat infiltration in the mid LEFT abdominal wall fat. May be an injection site or small hematoma. Pelvis: No free fluid or adenopathy within the pelvis. Bones: Unremarkable. CT/CT abdomen pelvis w con* [id number] IMPRESSION: 1. Cholelithiasis without evidence for acute cholecystitis. Stones in the gall bladder extending into the gallbladder neck. 2. Very small umbilical hernia contains fat only. 3. No GI tract obstruction. 4. Prior appendectomy. 5. No free fluid.
--- NOTE | 2025-06-03 12:07 | W.ED.ABDPA2 ---
HPI - Abdominal Pain General: Chief Complaint: Abdominal Pain Stated Complaint: abd pain Time Seen by Provider: 06/03/25 12:02 Source: patient Mode of arrival: ambulatory Limitations: no limitations History of Present Illness: 34-year-old male states that he has been having some abdominal pain since Sunday. He states that he feels like he has a bulge in his lower abdomen and it hurts to cough removed. States at rest his pain does improve he is pain is 3 out of 10 currently denies any vomiting or diarrhea denies any fevers has a history of appendectomy. Associated Symptoms: Denies chills, diarrhea, dysuria, fever(s), nausea and vomiting Related Data Home Medications ?Medication ?Instructions ?Recorded ?Confirmed glipizide 10 mg tablet 10 mg PO BID 12/09/19 07/10/22 metformin 500 mg tablet 500 mg PO BID 12/09/19 07/10/22 Allergies Allergy/AdvReac Type Severity Reaction Status Date / Time No Known Allergies Allergy Verified 11/22/24 16:07 Review of Systems Const: Denies: fever(s), chills, body aches or change in appetite ENMT: Denies: throat pain or dental pain Card: Denies: chest pain Resp: Denies: dyspnea GI: Reports: abdominal pain; Denies: nausea, vomiting or diarrhea : Denies: dysuria Musc: Denies: neck pain or back pain Skin/Breast: Denies: rash Neuro: Denies: headache(s) PFS ED PFSH: Medical History Type 2 diabetes mellitus Family History Father Heart attack x2 Social History Smoking and tobacco/nicotine status: former use of tobacco/nicotine Alcohol intake: never Substance/Drug Use: never Physical Exam Const: COMMON NORMALS: no acute distress, patient oriented x3 and healthy appearing HENMT: COMMON NORMALS: normocephalic and atraumatic HEAD & SCALP: normocephalic and atraumatic Eye: COMMON NORMALS: conjunctivae normal CONJUNCTIVA: Yes conjunctivae normal Neck/C-Spine: COMMON NORMALS: full ROM and supple Chest: COMMONS NORMALS: normal inspection of the chest Resp: COMMON NORMALS: normal respiratory effort, No retractions, No use of accessory muscles and clear to auscultation bilaterally AUSCULTATION: clear to auscultation bilaterally Cardio: COMMON NORMALS: regular rate, regular rhythm and No murmurs present (Cardio) RATE: regular rate RHYTHM: regular rhythm GI: COMMON NORMALS: Normal to inspection, nondistended, normoactive bowel sounds present, Soft to palpation and no masses PALPATION: Yes Soft to palpation OTHER: mild rlq tenderness Extremity: COMMON NORMALS: normal to inspection and full ROM Neuro: COMMON NORMALS: patient oriented x3, moves all extremities and no focal motor deficits Psych: COMMON NORMALS: mental status grossly normal, Normal thought process present and cooperative THOUGHT PROCESS: Normal thought process present Skin: COMMON NORMALS: no rashes or lesions noted and no wounds GENERAL SKIN EXAM: no rashes or lesions noted Course Vital Signs: Vital signs: Vital Signs Temperature 98.2 F 06/03/25 11:55 Pulse Rate 81 06/03/25 11:55 Respiratory Rate 16 06/03/25 11:55 Blood Pressure 120/77 06/03/25 11:55 Pulse Oximetry 97 06/03/25 11:55 Oxygen Delivery Me thod Room Air 06/03/25 11:55 MDM - Abdominal Pain Medical Decision Making Patient presents here with abdominal pain CT does show small umbilical hernia has some gallstones he has no right upper quadrant pain here no signs of cholecystitis we will get him follow-up with surgery his pain is improved here he stable for discharge return if worsening. Medical Records I reviewed the patient's medical records. Lab Data I reviewed the patient's lab results. 06/03/25 12:17 06/03/25 12:17 Labs/Radiology: Radiology Impressions Abdomen/Pelvis CT 06/03/25 12:06 IMPRESSION: 1. Cholelithiasis without evidence for acute cholecystitis. Stones in the gallbladder extending into the gallbladder neck. 2. Very small umbilical hernia contains fat only. 3. No GI tract obstruction. 4. Prior appendectomy. 5. No free fluid. Laboratory Results WBC 8.41 10^3/uL (3.29-11.43) 06/03/25 12:17 RBC 4.93 10^6/uL (3.85-5.65) 06/03/25 12:17 Hgb 15.00 g/dL (11.27-16.99) 06/03/25 12:17 Hct 43.5 % (37-53) 06/03/25 12:17 MCV 88.2 fl (82-101) 06/03/25 12:17 MCH 30.4 pg (27-33) 06/03/25 12:17 MCHC 34.5 g/dL (30-55) 06/03/25 12:17 RDW 12.1 % (12.1-15.1) 06/03/25 12:17 Plt Count 223 10^3/cmm (157-399) 06/03/25 12:17 MPV 10.7 fL (7.4-10.4) H 06/03/25 12:17 Neut % (Auto) 47.3 % 06/03/25 12:17 Lymph % (Auto) 41.3 % 06/03/25 12:17 [place] % (Auto) 8.8 % 06/03/25 12:17 Eos % (Auto) 1.7 % 06/03/25 12:17 Baso % (Auto) 0.8 % 06/03/25 12:17 Neut # (Auto) 3.98 10^3/uL (1.8-7.7) 06/03/25 12:17 Lymph # (Auto) 3.5 10^3/uL (0.8-4.8) 06/03/25 12:17 [place] # (Auto) 0.7 10^3/uL (0.2-0.9) 06/03/25 12:17 Eos # (Auto) 0.1 10^3/uL (0.0-0.8) 06/03/25 12:17 Baso # (Auto) 0.1 10^3/uL (0.0-0.1) 06/03/25 12:17 Nucleated RBC % (auto) 0 % 06/03/25 12:17 Nucleated RBCs # 0.0 /100WBC 06/03/25 12:17 Sodium 137 mmol/L (136-145) 06/03/25 12:17 Potassium 3.8 mmol/L (3.5-5.1) 06/03/25 12:17 Chloride 99 mmol/L (98-107) 06/03/25 12:17 Carbon Dioxide 23 mmol/L (22-29) 06/03/25 12:17 Anion Gap 18.8 (5-19) 06/03/25 12:17 BUN 11 mg/dL (6-20) 06/03/25 12:17 Creatinine 0.7 mg/dL (0.7-1.2) 06/03/25 12:17 GFR Calculation 127.6 mL/min (90-130) 06/03/25 12:17 Glucose 243 mg/dL (65-115) H 06/03/25 12:17 Calculated Osmolality 291 mOsm/kg (285-295) 06/03/25 12:17 Calcium 9.5 mg/dL (8.5-10.5) 06/03/25 12:17 Total Bilirubin 0.7 mg/dL (0.15-1.2) 06/03/25 12:17 AST 25 U/L (0-40) 06/03/25 12:17 ALT 42 U/L (0-41) H 06/03/25 12:17 Alkaline Phosphatase 72 U/L (40-130) 06/03/25 12:17 Total Protein 7.5 g/dL (6.6-8.7) 06/03/25 12:17 Albumin 4.5 g/dL (3.5-5.2) 06/03/25 12:17 Globulin 3.0 g/dL (1.3-4.6) 06/03/25 12:17 Lipase 26 U/L (13-60) 06/03/25 12:17 All radiology interpretation(s) finalized by discharge Discharge Plan Discharge Patient Disposition: Home Clinical Impression: Abdominal pain, Hernia, umbilical Condition: Stable Prescriptions: No Action metformin 500 mg tablet 500 mg PO BID glipizide 10 mg tablet 10 mg PO BID Discharge Orders: Discharge ED (Routine); Ordered 06/03/25 Ordered By: Desiree Kent Referrals: Audrey Hoffman MD [Primary Care Provider, Family Practice] Marcial Nath MD [Physician, General Surgery] - 4-7 days Discharge Diet: Advance as tolerated Discharge Activity: Resume usual activity Patient Instructions: Umbilical Hernia (ED), Abdominal Pain (ED) Print Language: German Coding Level of Care Code ED Product Safety Manager for [facility]
[2025-06-03 12:22] LABS: Hematocrit 43.5 % (37-53); Hemoglobin 15.00 g/dL (11.27-16.99); Mean Corpuscular HGB Conc 34.5 g/dL (30-55); Mean Corpuscular Hemoglobin 30.4 pg (27-33); Mean Corpuscular Volume 88.2 fl (82-101); Nucleated Red Blood Cells % 0 %; Platelet Count 223 10^3/cmm (157-399); Red Blood Count 4.93 10^6/uL (3.85-5.65); White Blood Count 8.41 10^3/uL (3.29-11.43)
[2025-06-03 12:40] LABS: Alanine Aminotransferase 42 U/L (0-41); Albumin Level 4.5 g/dL (3.5-5.2); Alkaline Phosphatase 72 U/L (40-130); Anion Gap 18.8 (5-19); Aspartate Amino Transferase 25 U/L (0-40); Blood Urea Nitrogen 11 mg/dL (6-20); Calcium 9.5 mg/dL (8.5-10.5); Carbon Dioxide 23 mmol/L (22-29); Chloride 99 mmol/L (98-107); Creatinine Clr Calc Pharmacy 143.6925; Globulin 3.0 g/dL (1.3-4.6); Glucose 243 mg/dL (65-115); Lipase 26 U/L (13-60); Osmolality Calculated 291 mOsm/kg (285-295); Potassium 3.8 mmol/L (3.5-5.1); Sodium 137 mmol/L (136-145); Total Protein 7.5 g/dL (6.6-8.7)
[2025-06-03] MEDS: iohexol 350 mg/mL 500 mL Btl (per mL) IV (12:43)
[2025-06-03 13:29] VITALS: BP 110/67; PULSE 77; O2SAT 95
--- NOTE | 2025-06-04 07:58 | DCPLANNER ---
messaged gen surg for er f/u
--- NOTE | 2025-06-05 09:14 | PC.SOCIAL ---
RFS sent to [facility] for f/u with Dr. Nath.
== END 2025-06-03 13:38 | disposition home or self-care (01) ==
PROVIDERS: Emergency Provider Emergency Medicine; PCP Family Medicine
DX: R10.9 Unspecified abdominal pain (principal); K42.9 Umbilical hernia without obstruction or gangrene; Z79.84 Long term (current) use of oral hypoglycemic drugs; E11.9 Type 2 diabetes mellitus without complications
CPT/HCPCS: 36415; 74177; 80053; 83690; 85025; 99285